=== PATIENT | male | born 1970 | race Caucasian/White ===

== ENCOUNTER 2019-04-11 11:21 | Outpatient (RCR) | payer BC, SELFPAY | END 2019-04-24 00:01 | LOC: WOUND 11:21 | PROVIDERS: Family Provider Internal Medicine; Visit Provider Nurse Practitioner Family | DX: E11.621 Type 2 diabetes mellitus with foot ulcer (principal); L97.512 Non-pressure chronic ulcer of other part of right foot with fat layer exposed; I96 Gangrene, not elsewhere classified | CPT/HCPCS: 99212; G0277 ×9; G0463 ×2 ==

== ENCOUNTER → 2019-04-27 08:03 | Outpatient (BNVA) | payer BC, SELFPAY | PROVIDERS: Family Provider Internal Medicine; PCP Family Medicine; Visit Provider Family Medicine | DX: E11.621 Type 2 diabetes mellitus with foot ulcer (principal); L97.509 Non-pressure chronic ulcer of other part of unspecified foot with unspecified severity; F17.229 Nicotine dependence, chewing tobacco, with unspecified nicotine-induced disorders | CPT/HCPCS: 36415; 80053; 80061; 83036; 85025 ==

== ENCOUNTER → 2019-09-25 09:08 | Outpatient (BNVA) | payer BC, SELFPAY | PROVIDERS: Family Provider Internal Medicine; PCP Family Medicine; Visit Provider Family Medicine | DX: E11.65 Type 2 diabetes mellitus with hyperglycemia (principal); E11.621 Type 2 diabetes mellitus with foot ulcer; L97.509 Non-pressure chronic ulcer of other part of unspecified foot with unspecified severity | CPT/HCPCS: 36416; 82962; 84450; 87070; 87186 ==

== ENCOUNTER 2019-10-01 13:08 | Outpatient (CLI) | payer BC, SELFPAY | END 2019-10-01 13:09 | disposition home or self-care (01) | LOC: WOUND 13:09 | PROVIDERS: Family Provider Internal Medicine; PCP Family Medicine; Visit Provider Nurse Practitioner Family | DX: E11.621 Type 2 diabetes mellitus with foot ulcer (principal); L97.512 Non-pressure chronic ulcer of other part of right foot with fat layer exposed; L97.529 Non-pressure chronic ulcer of other part of left foot with unspecified severity | CPT/HCPCS: 11042; G0463; L3260 ==

== ENCOUNTER 2019-10-08 11:01 | Outpatient (CLI) | payer BC, SELFPAY | END 2019-10-08 11:02 | disposition home or self-care (01) | LOC: WOUND 11:02 | PROVIDERS: Family Provider Internal Medicine; PCP Family Medicine; Visit Provider Nurse Practitioner Family | DX: E11.621 Type 2 diabetes mellitus with foot ulcer (principal); L97.512 Non-pressure chronic ulcer of other part of right foot with fat layer exposed | CPT/HCPCS: 11042 ==

== ENCOUNTER 2019-10-15 11:05 | Outpatient (CLI) | payer BC, SELFPAY | END 2019-10-15 11:06 | disposition home or self-care (01) | LOC: WOUND 11:06 | PROVIDERS: Family Provider Internal Medicine; PCP Family Medicine; Visit Provider Nurse Practitioner Family | DX: E11.621 Type 2 diabetes mellitus with foot ulcer (principal); L97.512 Non-pressure chronic ulcer of other part of right foot with fat layer exposed | CPT/HCPCS: 11042; L3260 ==

== ENCOUNTER 2019-10-22 15:16 | Outpatient (CLI) | payer BC, SELFPAY | END 2019-10-22 15:17 | disposition home or self-care (01) | LOC: WOUND 15:16 | PROVIDERS: Family Provider Internal Medicine; PCP Family Medicine; Visit Provider Nurse Practitioner Family | DX: E11.621 Type 2 diabetes mellitus with foot ulcer (principal); L97.512 Non-pressure chronic ulcer of other part of right foot with fat layer exposed | CPT/HCPCS: 11042 ==

== ENCOUNTER 2019-10-29 08:04 | Outpatient (CLI) | payer BC, SELFPAY | END 2019-10-29 08:05 | disposition home or self-care (01) | PROVIDERS: Family Provider Internal Medicine; PCP Family Medicine; Visit Provider Surgery | DX: Z51.89 Encounter for other specified aftercare (principal) | CPT/HCPCS: G0463 ==

== ENCOUNTER 2019-11-12 15:09 | Outpatient (CLI) | payer BC, SELFPAY | END 2019-11-12 15:10 | disposition home or self-care (01) | LOC: WOUND 15:10 | PROVIDERS: Family Provider Internal Medicine; PCP Family Medicine; Visit Provider Emergency Medicine | DX: E11.621 Type 2 diabetes mellitus with foot ulcer (principal); L97.512 Non-pressure chronic ulcer of other part of right foot with fat layer exposed | CPT/HCPCS: 11042 ==

== ENCOUNTER 2019-11-12 16:07 | Outpatient (CLI) | payer BC, SELFPAY ==
--- NOTE | 2019-11-12 16:24 | XRR_ITS ---
PROCEDURE INFORMATION: Exam: XR Right Foot Complete Exam date and time: 11/12/2019 4:24 PM Age: 49 years old Clinical indication: Right; Patient HX: C/O pain , redness, non healing ulcer ball of foot x 6/8 months; Additional info: Pain, redness, non healing ulcer TECHNIQUE: Imaging protocol: XR Right foot. Views: 3 or more views. COMPARISON: CR Foot 3 views, RIGHT* [id number] 01/30/2019 1:01 PM FINDINGS: Bones/joints: The exam is negative for acute fracture. There chronic deformity of the the great toe which was not present on prior examination. Soft tissues: Soft tissue edema great toe XR/XR foot RT min 3V* [id number] IMPRESSION: 1. Chronic deformity great toe 2. Negative for acute bony abnormality 3. Soft tissue edema great toe
== END 2019-11-12 16:08 | disposition home or self-care (01) ==
LOC: RADWPI 16:11
PROVIDERS: Family Provider Internal Medicine; PCP Family Medicine; Visit Provider Emergency Medicine
DX: M79.671 Pain in right foot (principal); L97.519 Non-pressure chronic ulcer of other part of right foot with unspecified severity; M20.61 Acquired deformities of toe(s), unspecified, right foot; R60.9 Edema, unspecified
CPT/HCPCS: 73630

== ENCOUNTER 2019-11-19 14:47 | Outpatient (CLI) | payer BC, SELFPAY | END 2019-11-19 14:48 | disposition home or self-care (01) | LOC: WOUND 14:48 | PROVIDERS: Family Provider Internal Medicine; PCP Family Medicine; Visit Provider Emergency Medicine | DX: E11.621 Type 2 diabetes mellitus with foot ulcer (principal); L97.512 Non-pressure chronic ulcer of other part of right foot with fat layer exposed | CPT/HCPCS: 11042; L3260 ==

== ENCOUNTER 2019-11-26 15:07 | Outpatient (CLI) | payer BC, SELFPAY | END 2019-11-26 15:08 | disposition home or self-care (01) | LOC: WOUND 15:08 | PROVIDERS: PCP Family Medicine; Visit Provider Nurse Practitioner Family | DX: E11.621 Type 2 diabetes mellitus with foot ulcer (principal); L97.512 Non-pressure chronic ulcer of other part of right foot with fat layer exposed | CPT/HCPCS: 11042 ==

== ENCOUNTER 2019-11-30 12:40 | Outpatient (CLI) | payer BC, SELFPAY ==
--- NOTE | 2019-11-30 12:49 | USCV_ITS ---
Eleuterio Trannedaelvis Age: 49 Gender: M : 1970 Exam Date: 11/30/2019 13:02 Ordering Phys: Yuliana Santos DO Technologist: Lyly Tate Exam Location: [facility] [place] Indication: HISTORY: Patient has ulcers. PROCEDURES: Bilateral duplex Venous Insufficiency study of the Deep and Superficial systems was carried out according to normal protocol with the patient in supine positon for deep system and dependent position for the superficial system. FINDINGS: There is no evidence of bilateral deep vein thrombosis. No evidence of superficial thrombosis in the bilateral saphenous system. Reflux is demonstrated in the deep venous system at the level of the LEFT CFV Venous reflux is demonstrated in the RIGHT greater saphenous vein with a spectral Doppler display of greater than 500 milliseconds at the mid and dist levels. Venous reflux was demonstrated in the LEFT SFJ with a spectral display of greater than 500 milliseconds. Venous reflux is demonstrated in the LEFT greater saphenous vein with a spectral Doppler display of greater than 500 milliseconds at the prox to below the knee levels. No venous reflux noted in the RIGHT small saphenous vein. Venous reflux is demonstrated in the LEFT small saphenous vein with a spectral Doppler display of greater than 500 mlsec at the level of the proximal calf. CONCLUSIONS 1. No evidence of DVT in the above-mentioned identifiable veins. 2. Significant venous reflux of greater than 500 ms were noted at the mid and distal greater saphenous vein segments on the right side. The venous dimension at the segments were 0.49 and 0.54 respectively. The distal greater saphenous vein segment was less than 1 cm deep from the surface. The mid greater saphenous vein segment was greater than 1 cm deep. 3. Significant venous reflux of greater than 500( 2380- 4230 msecs) ms were noted, throughout the greater saphenous vein segments on the left side except in the segment just distal to the saphenofemoral junction. The venous segments where 0.45 to 0.66 cm in diameter. 4. The proximal segment of the small saphenous vein on the left side also was found to have significant venous reflux of greater than 500 ms. 5. All the venous segments with significant reflex on the left side were found to be greater than 1 cm deep from the surface except the greater saphenous vein segment below the knee and the proximal small saphenous vein segments. 6. Significant venous reflux of greater than 1000 ms was noted in the left common femoral vein. No significant reflux were noted in the deep veins on the right side 6. The reflux times, venous dimensions and depth from the surface are as mentioned above. Dr Carmen Lopez MD [facility] (Electronically Signed) Final Date: 30 November 2019 17:36 S
== END 2019-11-30 12:41 | disposition home or self-care (01) ==
LOC: RAD 12:43
PROVIDERS: Family Provider Internal Medicine; PCP Family Medicine; Visit Provider Emergency Medicine
DX: M79.604 Pain in right leg (principal); M79.605 Pain in left leg; L53.9 Erythematous condition, unspecified; L97.929 Non-pressure chronic ulcer of unspecified part of left lower leg with unspecified severity; L97.919 Non-pressure chronic ulcer of unspecified part of right lower leg with unspecified severity
CPT/HCPCS: 93970

== ENCOUNTER 2019-12-03 12:45 | Outpatient (CLI) | payer BC, SELFPAY ==
--- NOTE | 2019-12-03 12:53 | USCV_ITS ---
Willard Tran Age: 49 Gender: M : 1970 Exam Date: 12/03/2019 13:03 Ordering Phys: Yuliana Santos DO Technologist: Zoë Foster Exam Location: [facility] – [place] Indication: NON HEALING ULCER RIGHT LEFT Brachial 111.00 mmHg Brachial 112.00 mmHg Pressure (mmHg) Waveform Pressure (mmHg) Waveform 75.00 Pre-Exercise Toe Pressure 72.00 0.67 Pre-Exercise Toe/Brachial Index 0.64 FINDINGS BILATERAL ANKLE PRESSURES >220 Noncompressible vessels at the ankle bilaterally Slightly diminished resting TBI bilaterally PVR waveforms showing loss of dicrotic notch bilaterally CONCLUSIONS Features of mild peripheral arterial disease bilaterally Dr Carmen Lopez MD [facility] (Electronically Signed) Final Date: 03 December 2019 20:14 S
== END 2019-12-03 12:46 | disposition home or self-care (01) ==
LOC: US 12:46
PROVIDERS: Family Provider Internal Medicine; PCP Family Medicine; Visit Provider Emergency Medicine
DX: M79.604 Pain in right leg (principal); M79.605 Pain in left leg; L53.9 Erythematous condition, unspecified; L97.929 Non-pressure chronic ulcer of unspecified part of left lower leg with unspecified severity; L97.919 Non-pressure chronic ulcer of unspecified part of right lower leg with unspecified severity
CPT/HCPCS: 93923

== ENCOUNTER 2019-12-05 14:16 | Outpatient (CLI) | payer BC, SELFPAY | END 2019-12-05 14:17 | disposition home or self-care (01) | LOC: WOUND 14:17 | PROVIDERS: Family Provider Internal Medicine; PCP Family Medicine; Visit Provider Thoracic Surgery (Cardiothoracic Vascular Surgery) | DX: E11.621 Type 2 diabetes mellitus with foot ulcer (principal); L97.512 Non-pressure chronic ulcer of other part of right foot with fat layer exposed | CPT/HCPCS: 11042; L4387 ==

== ENCOUNTER 2019-12-12 10:47 | Outpatient (CLI) | payer BC, SELFPAY | END 2019-12-12 10:48 | disposition home or self-care (01) | LOC: WOUND 10:48 | PROVIDERS: Family Provider Internal Medicine; PCP Family Medicine; Visit Provider Nurse Practitioner Family | DX: E11.621 Type 2 diabetes mellitus with foot ulcer (principal); L97.512 Non-pressure chronic ulcer of other part of right foot with fat layer exposed | CPT/HCPCS: 11042 ==

== ENCOUNTER 2019-12-19 13:51 | Outpatient (CLI) | payer BC, SELFPAY | END 2019-12-19 13:52 | disposition home or self-care (01) | LOC: WOUND 13:51 | PROVIDERS: Family Provider Internal Medicine; PCP Family Medicine; Visit Provider Emergency Medicine | DX: E11.621 Type 2 diabetes mellitus with foot ulcer (principal); L97.512 Non-pressure chronic ulcer of other part of right foot with fat layer exposed | CPT/HCPCS: 11042; L3260 ==

== ENCOUNTER 2019-12-26 13:49 | Outpatient (CLI) | payer BC, SELFPAY | END 2019-12-26 13:50 | disposition home or self-care (01) | LOC: WOUND 13:50 | PROVIDERS: Family Provider Internal Medicine; Visit Provider Emergency Medicine | DX: E11.621 Type 2 diabetes mellitus with foot ulcer (principal); L97.512 Non-pressure chronic ulcer of other part of right foot with fat layer exposed | CPT/HCPCS: 11042; 29445; L3260 ==

== ENCOUNTER 2020-01-03 15:21 | Outpatient (CLI) | payer BC, SELFPAY | END 2020-01-03 15:22 | disposition home or self-care (01) | LOC: WOUND 15:22 | PROVIDERS: Family Provider Internal Medicine; Visit Provider Emergency Medicine | DX: E11.621 Type 2 diabetes mellitus with foot ulcer (principal); L97.512 Non-pressure chronic ulcer of other part of right foot with fat layer exposed | CPT/HCPCS: 11042 ==

== ENCOUNTER → 2020-01-17 16:44 | Outpatient (BNVA) | payer BC, SELFPAY | PROVIDERS: Family Provider Internal Medicine; Visit Provider Nurse Practitioner | DX: Z20.828 Contact with and (suspected) exposure to other viral communicable diseases (principal) | CPT/HCPCS: 87635 ==

== ENCOUNTER 2020-01-23 14:14 | Outpatient (CLI) | payer BC, SELFPAY | END 2020-01-23 14:15 | disposition home or self-care (01) | LOC: WOUND 14:15 | PROVIDERS: Family Provider Internal Medicine; Visit Provider Nurse Practitioner Family | DX: E11.621 Type 2 diabetes mellitus with foot ulcer (principal); L97.512 Non-pressure chronic ulcer of other part of right foot with fat layer exposed | CPT/HCPCS: 11042 ==

== ENCOUNTER 2020-01-30 14:30 | Outpatient (CLI) | payer BC, SELFPAY | END 2020-01-30 14:31 | disposition home or self-care (01) | LOC: WOUND 14:30 | PROVIDERS: Family Provider Internal Medicine; Visit Provider Thoracic Surgery (Cardiothoracic Vascular Surgery) | DX: E11.621 Type 2 diabetes mellitus with foot ulcer (principal); L97.512 Non-pressure chronic ulcer of other part of right foot with fat layer exposed | CPT/HCPCS: 11042 ==

== ENCOUNTER 2020-02-06 14:16 | Outpatient (CLI) | payer BC, SELFPAY | END 2020-02-06 14:17 | disposition home or self-care (01) | LOC: WOUND 14:16 | PROVIDERS: Family Provider Internal Medicine; Visit Provider Nurse Practitioner Family | DX: E11.621 Type 2 diabetes mellitus with foot ulcer (principal); L97.512 Non-pressure chronic ulcer of other part of right foot with fat layer exposed | CPT/HCPCS: 11042 ==

== ENCOUNTER 2020-02-13 14:41 | Outpatient (CLI) | payer BC, SELFPAY | END 2020-02-13 14:42 | disposition home or self-care (01) | LOC: WOUND 14:42 | PROVIDERS: Family Provider Internal Medicine; Visit Provider Thoracic Surgery (Cardiothoracic Vascular Surgery) | DX: E11.621 Type 2 diabetes mellitus with foot ulcer (principal); L97.512 Non-pressure chronic ulcer of other part of right foot with fat layer exposed | CPT/HCPCS: 11042 ==

== ENCOUNTER 2020-02-20 15:03 | Outpatient (CLI) | payer BC, SELFPAY | END 2020-02-20 15:04 | disposition home or self-care (01) | LOC: WOUND 15:04 | PROVIDERS: Family Provider Internal Medicine; Visit Provider Thoracic Surgery (Cardiothoracic Vascular Surgery) | DX: E11.621 Type 2 diabetes mellitus with foot ulcer (principal); L97.512 Non-pressure chronic ulcer of other part of right foot with fat layer exposed | CPT/HCPCS: 11042 ==

== ENCOUNTER 2020-02-27 15:04 | Outpatient (CLI) | payer BC, SELFPAY | END 2020-02-27 15:05 | disposition home or self-care (01) | LOC: WOUND 15:04 | PROVIDERS: Family Provider Internal Medicine; Visit Provider Thoracic Surgery (Cardiothoracic Vascular Surgery) | DX: E11.621 Type 2 diabetes mellitus with foot ulcer (principal); L97.512 Non-pressure chronic ulcer of other part of right foot with fat layer exposed | CPT/HCPCS: 11042 ==

== ENCOUNTER 2020-03-05 14:38 | Outpatient (CLI) | payer BC, SELFPAY | END 2020-03-05 14:39 | disposition home or self-care (01) | LOC: WOUND 14:38 | PROVIDERS: Family Provider Internal Medicine; Visit Provider Thoracic Surgery (Cardiothoracic Vascular Surgery) | DX: E11.621 Type 2 diabetes mellitus with foot ulcer (principal); L97.512 Non-pressure chronic ulcer of other part of right foot with fat layer exposed | CPT/HCPCS: 97597; G0463 ==

== ENCOUNTER 2020-04-11 14:22 | Outpatient (CLI) | payer BC, SELFPAY | END 2020-04-11 14:23 | disposition home or self-care (01) | LOC: WOUND 14:22 | PROVIDERS: Family Provider Internal Medicine; Visit Provider Surgery | DX: E11.621 Type 2 diabetes mellitus with foot ulcer (principal); L97.512 Non-pressure chronic ulcer of other part of right foot with fat layer exposed | CPT/HCPCS: 10060; 11043; 87070; 87077; 87186; G0463 ==

== ENCOUNTER 2020-04-15 15:01 | Outpatient (CLI) | payer BC, SELFPAY | END 2020-04-15 15:02 | disposition home or self-care (01) | LOC: WOUND 15:01 | PROVIDERS: Family Provider Internal Medicine; Visit Provider Nurse Practitioner Family | DX: E11.621 Type 2 diabetes mellitus with foot ulcer (principal); L97.512 Non-pressure chronic ulcer of other part of right foot with fat layer exposed | CPT/HCPCS: 11042 ==

== ENCOUNTER 2020-04-16 12:47 | Outpatient (CLI) | payer BC, SELFPAY ==
--- NOTE | 2020-04-16 12:56 | XR_ITS ---
WS: [id number] FOOT RIGHT TECHNIQUE: 3 views of the right foot CLINICAL INFORMATION: DIABETIC FOOT ULCER, RIGHT FOOT PAIN, R/O OSTEOMYELITIS COMPARISON: November 12, 2019 FINDINGS: Chronic appearing erosive changes involving the first DIP unchanged in appearance since November 12, 2019 . Findings likely due to chronic osteomyelitis or periarthritis. No new erosive changes. Hammertoe de formities. Vascular calcification. Tiny plantar calcaneal and Achilles insertion spurring. XR/XR foot RT min 3V* [id number] IMPRESSION: 1. Again seen are chronic erosive changes involving the first DIP unchanged in appearance since November 12, 2019. Findings presumed be due to chronic osteomyeli tis. No significant interval changes. 2. Mild soft tissue edema.
== END 2020-04-16 12:48 | disposition home or self-care (01) ==
LOC: RADWPI 12:54
PROVIDERS: PCP Family Medicine; Visit Provider Surgery
DX: M79.671 Pain in right foot (principal); E11.621 Type 2 diabetes mellitus with foot ulcer; L97.512 Non-pressure chronic ulcer of other part of right foot with fat layer exposed; R60.0 Localized edema
CPT/HCPCS: 73630

== ENCOUNTER 2020-04-29 14:45 | Outpatient (CLI) | payer BC, SELFPAY | END 2020-04-29 14:46 | disposition home or self-care (01) | LOC: WOUND 14:45 | PROVIDERS: PCP Family Medicine; Visit Provider Thoracic Surgery (Cardiothoracic Vascular Surgery) | DX: E11.621 Type 2 diabetes mellitus with foot ulcer (principal); L97.412 Non-pressure chronic ulcer of right heel and midfoot with fat layer exposed | CPT/HCPCS: 11042 ==

== ENCOUNTER 2020-05-02 14:55 | Outpatient (CLI) | payer BC, SELFPAY ==
[2020-05-02 15:31] LABS: Basophils # 0.1 10^3/uL (0.0-0.1); Eosinophils # 0.1 10^3/uL (0.0-0.8); Eosinophils % 2.1 %; Hematocrit 45.6 % (42.0-52.0); Hemoglobin 15.6 g/dL (11.7-16.6); Lymphocytes # 1.7 10^3/uL (0.8-4.8); Lymphocytes % 24.3 %; Mean Corpuscular HGB Conc 34.2 g/dL (30.0-36.0); Mean Corpuscular Volume 90.5 fL (80-94); Mean Platelet Volume 10.8 fL (7.4-10.4); Monocytes # 0.5 10^3/uL (0.2-0.9); Neutrophils # 4.35 10^3/uL (1.8-7.7); Neutrophils % 64.2 %; Nucleated Red Blood Cells % 0 %; Platelet Count 171 10^3/cmm (130-400); Red Blood Count 5.04 10^6/uL (4.1-5.3); Red Cell Distribution Width 12.2 % (12.1-15.1); White Blood Count 6.8 10^3/uL (4.0-10.0)
[2020-05-02 15:47] LABS: Alanine Aminotransferase 30 U/L (0-41); Albumin Level 4.5 g/dL (3.5-5.2); Alkaline Phosphatase 111 IU/L (40-130); Blood Urea Nitrogen 11 mg/dL (6-20); Calcium 9.2 mg/dL (8.5-10.5); Carbon Dioxide 30 mmol/L (22-29); Chloride 98 mmol/L (98-107); Globulin 3.2 g/dL (1.3-4.6); Glomerular Filtration Rate 119.9 mL/min (90-130); Glucose 229 mg/dL (65-115); Osmolality Calculated 291 mOsm/kg (285-295); Sodium 137 mmol/L (136-145); Total Bilirubin 0.6 mg/dL (0.15-1.2); Total Protein 7.7 g/dL (6.6-8.7)
[2020-05-02 15:58] LABS: Anion Gap 13.2 (5-19); Aspartate Amino Transferase 26 U/L (0-40); Potassium 4.2 mmol/L (3.5-5.1)
== END 2020-05-02 14:56 | disposition home or self-care (01) ==
PROVIDERS: PCP Family Medicine; Visit Provider Thoracic Surgery (Cardiothoracic Vascular Surgery)
DX: M86.9 Osteomyelitis, unspecified (principal)
CPT/HCPCS: 36415; 80053; 85025

== ENCOUNTER 2020-05-07 14:22 | Outpatient (CLI) | payer BC, SELFPAY | END 2020-05-07 14:23 | disposition home or self-care (01) | LOC: WOUND 14:23 | PROVIDERS: PCP Family Medicine; Visit Provider Thoracic Surgery (Cardiothoracic Vascular Surgery) | DX: Z09 Encounter for follow-up examination after completed treatment for conditions other than malignant neoplasm (principal) | CPT/HCPCS: G0463 ==

== ENCOUNTER 2020-05-21 14:12 | Outpatient (CLI) | payer BC, SELFPAY | END 2020-05-21 14:13 | disposition home or self-care (01) | LOC: WOUND 14:13 | PROVIDERS: PCP Family Medicine; Visit Provider Thoracic Surgery (Cardiothoracic Vascular Surgery) | DX: E11.621 Type 2 diabetes mellitus with foot ulcer (principal); L97.412 Non-pressure chronic ulcer of right heel and midfoot with fat layer exposed | CPT/HCPCS: 99212 ==

== ENCOUNTER 2020-12-10 10:19 | Emergency (ER) | payer BC, SELFPAY ==
[2020-12-10 10:38] VITALS: BP 155/84; PULSE 83; RESP 18; TEMP 36.9; O2SAT 93
[2020-12-10 10:43] VITALS: O2SAT 92
--- NOTE | 2020-12-10 10:53 | XR_ITS ---
WS: [id number] PORTABLE CHEST HISTORY: dyspnea/cough COMPARISON: 02/14/2019 Bilateral multi lobar opacifications. Most significant consolidation in the RIGHT lower lobe and post erior to the LEFT heart. Additional scattered opacifications throughout the remaining lungs. No pleur al effusion or pneumothorax. Cardiac size: Normal. Mediastinum/Aorta: Normal mediastinum. No osseous abnormality seen. XR/XR chest 1V portable [id number] IMPRESSION: Multi lobar opacifications consistent with pneumonia. Consider Covid 19 as a po ssible etiology.
--- NOTE | 2020-12-10 10:54 | W.ED.COVID ---
HPI - COVID General: Chief Complaint: COVID symptoms Stated Complaint: chest tightness, productive cough post covid Time Seen by Provider: 12/10/20 10:24 Triage information: Has fever, cough or shortness of breath. No known COVID + exposure last 14 days History of Present Illness: HPI Narrative: 50 yo male tested positive for Covid on December 05. He was going to try to go back to work today. His symptoms had begun on November 30. He still is symptomatic however he is somewhat short of breath. He is still coughing as well as not had a fever. Diarrhea and muscle aches have diminished. MD complaint: known COVID positive Prior testing date: 12/05/20 COVID 19 common symptoms: positive fever(s), chills, cough, non-productive cough, dyspnea, fatigue, body aches, loss of sense of smell and/or taste, nasal congestion and nausea COVID 19 other sytmptoms: negative chest pain or requiring oxygen Onset (ago): day(s) (10) Severity: mild Pertinent comorbid conditions: obesity Treatment prior to arrival: none COVID Results: SARS-CoV-2 RNA (RT-PCR) Not detected (NOT DETECTED) 01/17/20 16:44 01/17/20 Review of Systems Const: Reports: fever(s), chills, body aches and fatigue ENMT: Reports: nasal congestion Card: Denies: chest pain, edema, dyspnea on exertion or orthopnea Resp: Reports: dyspnea and non-productive cough GI: Reports: nausea : Denies: flank pain, dysuria, urinary frequency or urinary urgency Skin/Breast: Denies: rash or pruritus PFSH ED PFSH: Medical History Diabetic foot ulcer Dyslipidemia PAD (peripheral artery disease) Splenomegaly Type 2 diabetes mellitus, without long-term current use of insulin Surgical History S/P hernia repair Family History Other Cancer Diabetes Hypertension Social History Smoking and tobacco status: current every day smoker smokeless tobacco Alcohol intake: never Physical Exam Const: COMMON NORMALS: no acute distress GENERAL APPEARANCE: cooperative and comfortable ORIENTATION/CONSCIOUSNESS: Yes awake, Yes oriented to person, Yes oriented to place and Yes oriented to time HENMT: COMMON NORMALS: normocephalic, atraumatic and hearing grossly normal bilaterally HEAD & SCALP: normocephalic and atraumatic Eye: COMMON NORMALS: Equal, round and reactive pupils present, EOMs intact bilaterally, conjunctivae normal and no scleral icterus CONJUNCTIVA: Yes conjunctivae normal PUPIL: Yes Equal, round and reactive pupils present Neck/C-Spine: COMMON NORMALS: full ROM, no lymphadenopathy, supple and no JVD Lymph: LYMPHATIC: no lymphadenopathy noted and no lymphedema noted Resp: COMMON NORMALS: normal respiratory effort, No retractions, No use of accessory muscles and clear to auscultation bilaterally AUSCULTATION: clear to auscultation bilaterally Cardio: COMMON NORMALS: no JVD, regular rate, regular rhythm and No murmurs present (Cardio) RATE: regular rate RHYTHM: regular rhythm GI: COMMON NORMALS: Soft to palpation and No hepatosplenomegaly present AUSCULTATION: Yes normoactive bowel sounds PALPATION: Yes Soft to palpation, No Tenderness to palpation present (GI), No Guarding due to palpation present (GI) and Yes No hepatosplenomegaly present Extremity: COMMON NORMALS: normal to inspection, capillary refill normal, no clubbing, cyanosis or edema, no calf tenderness and no pedal edema Neuro: SENSORIUM/ORIENTATION: Yes oriented to person, Yes oriented to place and Yes oriented to time Skin: COMMON NORMALS: no rashes or lesions noted GENERAL SKIN EXAM: no rashes or lesions noted Course Vital Signs: Vital signs: Vital Signs Temperature 98.4 F 12/10/20 10:38 Pulse Rate 67 12/10/20 11:36 Respiratory Rate 14 12/10/20 11:36 Blood Pressure 114/80 12/10/20 11:36 Pulse Oximetry 92 12/10/20 11:36 MDM - COVID MDM Narrative: Medical decision making narrative: Typical Covid pneumonitis on the chest x-ray consistent with his symptoms and known positive status. Discussed with the patient that the quarantine. Does not mean that he is free of Covid at the end of that time it is just time. In which we watch for the onset of symptoms if he has onset of symptoms during that time he is thought to be positive and needs to wait until his symptoms are resolved first at least 72 hours. At this point he does have active Covid and has pneumonitis from. Recommend that he maintain self-isolation we will start him on prednisone and albuterol clear liquid diet advance as tolerated worsening symptoms return COVID Results: SARS-CoV-2 RNA (RT-PCR) Not detected (NOT DETECTED) 01/17/20 16:44 01/17/20 Discharge Plan Discharge Patient Disposition: Home Clinical Impression: COVID-19 Condition: Stable Prescriptions: New dexamethasone 6 mg tablet 6 mg PO DAILY Qty: 7 RF: 0 albuterol sulfate 90 mcg/actuation HFA aerosol inhaler 2 inh INHALATION Q4H PRN (Reason: shortness of breath or wheezing) Qty: 18 RF: 0 No Action mupirocin calcium 2 % cream 1 applic topical BID 28 Days Qty: 30 RF: 0 (DME) Diabetic shoes with molded inserts See Rx Instructions .Route .MEDSUPPLY Qty: 1 RF: 0 (DME) FreeStyle Lite Strips Strip See Rx Instructions .ROUTE .MEDSUPPLY Qty: 100 RF: 2 atorvastatin 10 mg tablet 10 mg PO .qhs Qty: 30 RF: 0 lisinopril 5 mg tablet 5 mg PO ONCE Qty: 30 RF: 0 metformin 500 mg tablet extended release 24 hr 500 mg PO BID Qty: 60 RF: 0 Januvia 100 mg tablet 100 mg PO DAILY Qty: 30 RF: 0 Discharge Orders: Discharge ED (Routine); Ordered 12/10/20 Ordered By: Nicolas Ng Referrals: Dolores Alejo DO [Primary Care Provider] - Discharge Diet: Usual diet Discharge Activity: Increase activity as tolerated Patient Instructions: Opioid Safety Coding Level of Care Code ED Status Controller for Markg Fwd Exam Comprehensive
[2020-12-10 11:36] VITALS: BP 114/80; PULSE 67; RESP 14; O2SAT 92
== END 2020-12-10 11:37 | disposition home or self-care (01) ==
PROVIDERS: Emergency Provider Family Medicine; PCP Family Medicine
DX: U07.1 COVID-19 (principal); Z79.84 Long term (current) use of oral hypoglycemic drugs; E78.5 Hyperlipidemia, unspecified; E11.9 Type 2 diabetes mellitus without complications; F17.210 Nicotine dependence, cigarettes, uncomplicated
CPT/HCPCS: 71045; 99282

== ENCOUNTER 2021-09-01 12:56 | Outpatient (CLI) | payer BC, SELFPAY ==
--- NOTE | 2021-09-01 12:45 | USCV_ITS ---
Willard Tran Age: 51 Gender: M : 1970 Exam Date: 09/01/2021 13:06 Ordering Phys: Chacorta Tripathi MD (Andy) ([email or web address]) Technologist: SARA Exam Location: [facility] – [place] Indication: Other specified soft tissue disorders HISTORY: Lower extremity pain. Patient has history of Left GSV BK dvt. PROCEDURES: Venous duplex imaging was performed in only the left lower extremity. The following venous structures were evaluated: common femoral vein, profunda vein, proximal portion of the greater saphenous vein, superficial femoral vein, and the popliteal vein. In addition, the posterior tibial and peroneal trunk were evaluated. FINDINGS: Acute thrombus in the Left GSV from the ankle extending to below the knee. All other veins appear patent and compressible at this time. No DVT. CONCLUSIONS Acute left lower extremity superficial vein thrombosis, GSV from ankle to knee. New since 11/30/19. No DVT. Dr. Cata Pearson DO (Electronically Signed) Final Date: 01 Sep 2021 14:52 S
--- NOTE | 2021-09-01 13:09 | XR_ITS ---
WS: [id number] XR foot LT min 3V* [id number] REASON FOR EXAM: E11.621 - Type 2 diabetes mellitus with foot ulcer FINDINGS: Small arterial vascular calcifications indicative of diabetes. No fracture or focal bone lesion. No bony erosion or periosteal reaction. Moderate narrowing of the joint space with subchondral sclerosis in the DIP and PIP joints of the toe s. Similar arthropathy in the metatarsal phalangeal joint of the great toe with significant valgus defor mity. There is deformity of the distal first metatarsal head suggesting previous osteotomy. Joint spaces in the midfoot and hindfoot are intact and relatively well-preserved. Small anterior plantar enthesophyte of the calcaneus. Small enthesophyte at the Achilles attachment t o the calcaneus. Calcaneus otherwise unremarkable. Soft tissue swelling and mottled density in the soft tissues adjacent to the calcaneus. Presumed site of ulcer. 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 No findings of osteomyelitis.
--- NOTE | 2021-09-01 13:09 | XR_ITS ---
WS: [id number] RIGHT FOOT: 3 VIEW(S) TECHNIQUE: AP, oblique and lateral. HISTORY: Z86.31 - Personal history of diabetic foot ulcer COMPARISON: 04/16/2020 Narrowing of the first IP joint with erosions. No progression since the prior study. There is mild so ft tissue edema surrounding the first and fifth toes. There is a focal ulceration along the posterior aspect of the calcaneus measuring 2.0 cm. No underlying osteomyelitis. Normal tarsal/metatarsal alignment. Vascular calcifications. XR/XR foot RT min 3V* [id number] IMPRESSION: 1. No osteomyelitis identified radiographically. 2. Soft tissue ulceration measuring 2.0 cm along the posterior calcaneus. 3. Vascular calcifications. 4. Stable erosions at the first IP joint.
== END 2021-09-01 12:57 | disposition home or self-care (01) ==
LOC: RAD 13:00
PROVIDERS: PCP Internal Medicine; Visit Provider Thoracic Surgery (Cardiothoracic Vascular Surgery)
DX: E11.621 Type 2 diabetes mellitus with foot ulcer (principal); M19.072 Primary osteoarthritis, left ankle and foot; L97.529 Non-pressure chronic ulcer of other part of left foot with unspecified severity; L97.512 Non-pressure chronic ulcer of other part of right foot with fat layer exposed; I82.812 Embolism and thrombosis of superficial veins of left lower extremity
CPT/HCPCS: 73630; 93971

== ENCOUNTER 2022-02-02 16:10 | Outpatient (CLI) | payer BC, SELFPAY ==
--- NOTE | 2022-02-02 15:00 | USR_ITS ---
PROCEDURE INFORMATION: Exam: US Duplex Left Lower Extremity Veins, Limited Exam date and time: 02/02/2022 4:42 PM Age: 51 years old Clinical indication: Pain; Leg, lower; Left; Additional info: Rule out dvt TECHNIQUE: Imaging protocol: Real-time Duplex ultrasound of the Left Lower Extremity with 2-D vora scale, color Doppler flow and spectral waveform analysis with image documentation. Limited exam focused on the left lower extremity veins. COMPARISON: US ROR venous duplex 01/05/2021 3:33 PM FINDINGS: Left deep veins: Unremarkable. The common femoral, femoral, proximal profunda femoral and popliteal veins are patent without thrombus. Normal Doppler waveforms. Normal compressibility and/or augmentation response. Left superficial veins: Greater saphenous is noncompressible distal to the knee. This may reflect some superficial thrombophlebitis Soft tissues: Unremarkable. Other findings: Otherwise. Saphenofemoral junction is patent without thrombus. US/CV venous duplex [id number] IMPRESSION: 1. No evidence of deep vein thrombosis. 2. Possible superficial thrombophlebitis left distal greater saphenous
== END 2022-02-02 16:11 | disposition home or self-care (01) ==
LOC: RAD 16:11
PROVIDERS: PCP Internal Medicine; Visit Provider Podiatrist Foot & Ankle Surgery
DX: I82.409 Acute embolism and thrombosis of unspecified deep veins of unspecified lower extremity (principal)
CPT/HCPCS: 93971

== ENCOUNTER 2022-02-07 21:52 | Emergency (ER) | payer BC, SELFPAY ==
[2022-02-07 21:54] VITALS: BP 170/90; PULSE 96; RESP 16; TEMP 36.7; O2SAT 97; BMI 33.3
--- NOTE | 2022-02-07 21:56 | XRR_ITS ---
PROCEDURE INFORMATION: Exam: XR Left Ankle Exam date and time: 02/07/2022 10:28 PM Age: 51 years old Clinical indication: Edema; Yes, it is localized; Patient HX: Redness and swelling left ankle; Additional info: Injury TECHNIQUE: Imaging protocol: Radiologic exam of the Left ankle. Views: 3 or more views. COMPARISON: CR XR foot LT min 3V* [id number] 09/01/2021 1:28 PM FINDINGS: Bones/joints: No fracture. Soft tissues: There is nonfocal subcutaneous edema in the distal calf and ankle greater medially than laterally. Vasculature: atherosclerosis. XR/XR ankle LT min 3V* [id number] IMPRESSION: 1. No acute findings. 2. Subcutaneous edema.
--- NOTE | 2022-02-07 22:25 | W.ED.WOUNDLC ---
HPI - Wound/Laceration General: Chief Complaint: Wound/Laceration Stated Complaint: left ankle pain Time Seen by Provider: 02/07/22 22:22 History of Present Illness: 51-year-old male patient comes in today for redness and tenderness to the left lower leg for 1 week. Patient recently had a evaluation for DVT in the leg due to some lymphadenopathy in the groin. Patient was negative for DVT. Patient noted that he then noticed some increasing redness and swelling to the distal part of his leg after being evaluated. Patient came in tonight for concerns of infection. Patient appears nontoxic. Patient appears in mild to no pain. Review of Systems General: Reports: 10 or more systems reviewed and unremarkable except in HPI and below Skin/Breast: Reports: erythema PFSH ED PFSH: Medical History Diabetic foot ulcer Dyslipidemia PAD (peripheral artery disease) Splenomegaly Type 2 diabetes mellitus, without long-term current use of insulin Surgical History S/P hernia repair Family History Other Cancer Diabetes Hypertension Social History Smoking and tobacco status: current every day smoker smokeless tobacco Alcohol intake: never Physical Exam Const: COMMON NORMALS: alert HENMT: COMMON NORMALS: normocephalic HEAD & SCALP: normocephalic Neck/C-Spine: COMMON NORMALS: full ROM Resp: COMMON NORMALS: normal respiratory effort and clear to auscultation bilaterally AUSCULTATION: clear to auscultation bilaterally Cardio: COMMON NORMALS: regular rate and regular rhythm RATE: regular rate RHYTHM: regular rhythm Extremity: LEFT LOWER EXTREMITY: Yes lower leg (Area of ecchymosis approximately 1 cm with surrounding induration) Left lower leg: Yes inspection, Yes palpation and Yes neurovascular exam Neuro: SENSORIUM/ORIENTATION: Yes alert Skin: NARRATIVE SKIN EXAM: Area of redness and erythema to the left lower leg. Patient has a centralized circular area of ecchymosis with surrounding induration and erythema. Course Vital Signs: Vital signs: Vital Signs Temperature 98.1 F 02/07/22 21:54 Pulse Rate 88 02/07/22 23:43 Respiratory Rate 18 02/07/22 23:43 Blood Pressure 132/78 02/07/22 23:43 Pulse Oximetry 97 02/07/22 22:39 Oxygen Delivery Me thod 02/07/22 22:39 MDM - Wound/Laceration Medical Decision Making 51-year-old male patient comes in for worsening pain and redness to the left lower leg. Patient was evaluated for DVT earlier this week which was negative. Tonight patient has a area of induration and redness with a centralized ecchymotic area suggestive of a blow to the [place]. Patient also has some surrounding tissue swelling with erythema. Patient had reported some lymphadenopathy in the groin. Vital signs were normal. Patient reports no recent antibiotics. Differential diagnosis includes but not limited to lower leg injury, cellulitis, PVD. Review of the record noted that patient had a screening for DVT was negative on the . CBC had a white count 11,000, lactate was 1, CMP was unremarkable except for some elevation of blood glucose of 412. Patient was given a gram of Rocephin and 1 Bactrim tablet. Patient continued on Augmentin and Bactrim at home with recommendations to elevate and rest the leg and follow-up with primary care in 2 to 3 days or return to the ER for worsening symptoms. Patient reported understanding agreed to plan for treatment of cellulitis. Lab Data : 02/07/22 22:30 02/07/22 22:30 Radiology Impressions Ankle X-Ray 02/07/22 21:56 IMPRESSION: 1. No acute findings. 2. Subcutaneous edema. Laboratory Results WBC 11.0 10^3/uL (4.0-10.0) H 02/07/22 22:30 RBC 4.86 10^6/uL (4.1-5.3) 02/07/22 22:30 Hgb 15.5 g/dL (11.7-16.6) 02/07/22 22:30 Hct 44.4 % (42.0-52.0) 02/07/22 22:30 MCV 91.4 fl (80-94) 02/07/22 22:30 MCH 31.9 pg (28.0-34.0) 02/07/22 22:30 MCHC 34.9 g/dL (30.0-36.0) 02/07/22 22:30 RDW 12.2 % (12.1-15.1) 02/07/22: Plt Count 174 10^3/cmm (130-400) 02/07/22:30 MPV 10.7 fL (7.4-10.4) H 02/07/22: Neut % (Auto) 77.2 % 02/07/22: Lymph % (Auto) 13.4 % 02/07/22: Elliott % (Auto) 7.4 % 02/07/22: Eos % (Auto) 0.9 % 02/07/22: Baso % (Auto) 0.6 % 02/07/22: Neut # (Auto) 8.49 10^3/uL (1.8-7.7) H 02/07/22: Lymph # (Auto) 1.5 10^3/uL (0.8-4.8) 02/07/22: Elliott # (Auto) 0.8 10^3/uL (0.2-0.9) 02/07/22: Eos # (Auto) 0.1 10^3/uL (0.0-0.8) 02/07/22: Baso # (Auto) 0.1 10^3/uL (0.0-0.1) 02/07/22: Nucleated RBC % (auto) 0 % 02/07/22: Nucleated RBCs # 0.0 /100WBC 02/07/22:30 Sodium 133 mmol/L (136-145) L 02/07/22: Potassium 4.5 mmol/L (3.5-5.1) 02/07/22: Chloride 94 mmol/L (98-107) L 02/07/22: Carbon Dioxide 27 mmol/L (22-29) 02/07/22: Anion Gap 16.5 (5-19) 02/07/22: BUN 10 mg/dL (6-20) 02/07/22: Creatinine 0.7 mg/dL (0.7-1.2) 02/07/22:30 GFR Calculation 119.4 mL/min (90-130) 02/07/22: Glucose 412 mg/dL (65-115) H 10/16/22 22:30 Calculated Osmolality 292 mOsm/kg (285-295) 02/07/22 22:30 Lactate 1.0 mmol/L (0.5-2.2) 02/07/22 22:30 Calcium 9.3 mg/dL (8.5-10.5) 02/07/22 22:30 Total Bilirubin 0.5 mg/dL (0.15-1.2) 02/07/22 22:30 AST 16 U/L (0-40) 02/07/22 22:30 ALT 21 U/L (0-41) 02/07/22 22:30 Alkaline Phosphatase 109 U/L (40-130) 02/07/22 22:30 Total Protein 7.5 g/dL (6.6-8.7) 02/07/22 22:30 Albumin 4.2 g/dL (3.5-5.2) 02/07/22 22:30 Globulin 3.3 g/dL (1.3-4.6) 02/07/22 22:30 Discharge Plan Discharge Patient Disposition: Home Clinical Impression: Cellulitis of left lower leg Condition: Stable Prescriptions: New Bactrim DS 800-160 mg tablet 1 tab PO DAILY 7 Days Qty: 14 0RF amoxicillin-pot clavulanate 875-125 mg tablet 1 tab PO BID Qty: 14 0RF No Action mupirocin calcium 2 % cream 1 applic topical BID 28 Days Qty: 30 0RF (DME) Diabetic shoes with molded inserts See Rx Instructions .Route .MEDSUPPLY Qty: 1 0RF Rx Instructions: As directed (DME) FreeStyle Lite Strips Strip See Rx Instructions .ROUTE .MEDSUPPLY Qty: 100 2RF Rx Instructions: TWICE DAILY atorvastatin 10 mg tablet 10 mg PO .qhs Qty: 30 0RF lisinopril 5 mg tablet 5 mg PO ONCE Qty: 30 0RF metformin 500 mg tablet extended release 24 hr 500 mg PO BID Qty: 60 0RF Januvia 100 mg tablet 100 mg PO DAILY Qty: 30 0RF sulfamethoxazole-trimethoprim [Bactrim DS] 800-160 mg tablet 1 tab PO BID Qty: 14 0RF dexamethasone 6 mg tablet 6 mg PO DAILY Qty: 7 0RF albuterol sulfate 90 mcg/actuation HFA aerosol inhaler 2 inh INHALATION Q4H PRN (Reason: shortness of breath or wheezing) Qty: 18 0RF Discharge Orders: Discharge ED (Routine); Ordered 02/07/22 Ordered By: Chacorta Saleh Referrals: Pablo Orona DO [Primary Care Provider] - Discharge Diet: Usual diet Discharge Activity: Increase activity as tolerated Patient Instructions: Cellulitis (ED) Activity Restrictions/Additional Instructions: Home and rest. Take antibiotics as directed. Elevate extremity as much as possible for the next 2 to 3 days. Continue with routine medications as directed. Follow-up with primary care in 3 days for recheck. Return to ER earlier if you have increased fever greater than 100.4, inability to hold fluids down, or increasing pain and swelling to the extremity. Stand Alone Forms: Work/School Release Coding Level of Care Code ED Adhesive Bandage Machine Operator for Markg Fwd Exam Detailed
[2022-02-07 22:36] LABS: Basophils # 0.1 10^3/uL (0.0-0.1); Basophils % 0.6 %; Eosinophils # 0.1 10^3/uL (0.0-0.8); Eosinophils % 0.9 %; Hematocrit 44.4 % (42.0-52.0); Hemoglobin 15.5 g/dL (11.7-16.6); Lymphocytes # 1.5 10^3/uL (0.8-4.8); Lymphocytes % 13.4 %; Mean Corpuscular HGB Conc 34.9 g/dL (30.0-36.0); Mean Corpuscular Hemoglobin 31.9 pg (28.0-34.0); Mean Corpuscular Volume 91.4 fl (80-94); Mean Platelet Volume 10.7 fL (7.4-10.4); Monocytes # 0.8 10^3/uL (0.2-0.9); Monocytes % 7.4 %; Neutrophils # 8.49 10^3/uL (1.8-7.7); Neutrophils % 77.2 %; Nucleated Red Blood Cells % 0 %; Platelet Count 174 10^3/cmm (130-400); Red Blood Count 4.86 10^6/uL (4.1-5.3); Red Cell Distribution Width 12.2 % (12.1-15.1)
[2022-02-07 22:39] VITALS: BP 170/90; PULSE 96; RESP 16; O2SAT 97
[2022-02-07 22:58] LABS: Alanine Aminotransferase 21 U/L (0-41); Albumin Level 4.2 g/dL (3.5-5.2); Alkaline Phosphatase 109 U/L (40-130); Blood Urea Nitrogen 10 mg/dL (6-20); Calcium 9.3 mg/dL (8.5-10.5); Carbon Dioxide 27 mmol/L (22-29); Chloride 94 mmol/L (98-107); Globulin 3.3 g/dL (1.3-4.6); Glomerular Filtration Rate 119.4 mL/min (90-130); Glucose 412 mg/dL (65-115); Osmolality Calculated 292 mOsm/kg (285-295); Sodium 133 mmol/L (136-145); Total Bilirubin 0.5 mg/dL (0.15-1.2); Total Protein 7.5 g/dL (6.6-8.7)
[2022-02-07] MEDS: sulfamethoxazole-trimeth DS 160-800 mg Tablet 1 TAB PO (23:04)
[2022-02-07] MEDS: cefTRIAXone 1,000 MG in sodium chloride 0.9% (plus) 50 ML 100 MG IV (23:05)
[2022-02-07 23:08] LABS: Anion Gap 16.5 (5-19); Aspartate Amino Transferase 16 U/L (0-40); Potassium 4.5 mmol/L (3.5-5.1)
[2022-02-07 23:43] VITALS: BP 132/78; PULSE 88; RESP 18
== END 2022-02-07 23:44 | disposition home or self-care (01) ==
PROVIDERS: Emergency Medicine; Emergency Provider Nurse Practitioner Family; PCP Internal Medicine
DX: L03.116 Cellulitis of left lower limb (principal); Z79.84 Long term (current) use of oral hypoglycemic drugs; E11.9 Type 2 diabetes mellitus without complications; E78.5 Hyperlipidemia, unspecified; F17.210 Nicotine dependence, cigarettes, uncomplicated
CPT/HCPCS: 36415; 73610; 80053; 83605; 85025; 87040; 96365; 99284; J0696

== ENCOUNTER 2022-05-12 14:52 | Outpatient (CLI) | payer BC, SELFPAY ==
--- NOTE | 2022-05-12 15:12 | XR_ITS ---
WS: [id number] XR foot LT min 3V* [id number] REASON FOR EXAM: [id number] with foot ulcer; rule out osteomyelitis FINDINGS: No fracture. No periosteal reaction or destructive bone change to indicate osteomyelitis. Mild changes of osteoarthrosis in the PIP and DIP joints of the second through the fifth toes. Presumed previous osteotomy of the distal head of the first metatarsal. Significant valgus deformity at the first MTP joint with narrowing of the joint space and subchondral sclerosis and osteophytosis of the proximal phalanx. No significant abnormality in the midfoot. In the hindfoot there is mild narrowing of the subtalar joint with mild subchondral sclerosis. There are small calcaneal Achilles and plantar osteophytes. Extensive arterial calcification in the dorsum and plantar foot. XR/XR foot LT min 3V* [id number] IMPRESSION: No findings of osteomyelitis. Osteoarthritis involving the forefoot as above.
== END 2022-05-12 14:53 | disposition home or self-care (01) ==
LOC: RAD 14:59
PROVIDERS: PCP Internal Medicine; Visit Provider Thoracic Surgery (Cardiothoracic Vascular Surgery)
DX: E11.621 Type 2 diabetes mellitus with foot ulcer (principal); L97.509 Non-pressure chronic ulcer of other part of unspecified foot with unspecified severity; M19.072 Primary osteoarthritis, left ankle and foot
CPT/HCPCS: 73630

== ENCOUNTER 2022-09-14 16:22 | Outpatient (CLI) | payer BC, SELFPAY ==
--- NOTE | 2022-09-14 16:39 | XRR_ITS ---
PROCEDURE INFORMATION: Exam: XR Left Foot Exam date and time: 09/14/2022 5:00 PM Age: 52 years old Clinical indication: Condition or disease; Other: Foot ulcer; Additional info: E11.621 - type 2 diabetes mellitus with foot ulcer TECHNIQUE: Imaging protocol: Radiologic exam of the left foot. Views: 3 or more views. COMPARISON: CR XR foot LT min 3V* [id number] 05/12/2022 3:13 PM FINDINGS: Bones/joints: Hallux valgus deformity great toe and 2nd toe. No acute bony abnormalities seen. Soft tissues: Normal. XR/XR foot LT min 3V* [id number] IMPRESSION: 1. Hallux valgus deformity 1st and 2nd toe 2. Otherwise No acute findings.
== END 2022-09-14 16:23 | disposition home or self-care (01) ==
LOC: RAD 16:26
PROVIDERS: PCP Internal Medicine; Visit Provider Nurse Practitioner Family
DX: M20.12 Hallux valgus (acquired), left foot (principal); L97.529 Non-pressure chronic ulcer of other part of left foot with unspecified severity
CPT/HCPCS: 73630

== ENCOUNTER 2022-10-19 17:00 | Outpatient (CLI) | payer BC, SELFPAY ==
[2022-10-19 18:13] LABS: Basophils # 0.1 10^3/uL (0.0-0.1); Basophils % 0.8 %; Eosinophils # 0.1 10^3/uL (0.0-0.8); Eosinophils % 1.5 %; Hematocrit 45.2 % (42.0-52.0); Hemoglobin 15.7 g/dL (11.7-16.6); Lymphocytes # 2.2 10^3/uL (0.8-4.8); Mean Corpuscular HGB Conc 34.7 g/dL (30.0-36.0); Mean Corpuscular Hemoglobin 30.8 pg (28.0-34.0); Mean Corpuscular Volume 88.6 fl (80-94); Monocytes # 0.5 10^3/uL (0.2-0.9); Monocytes % 6.8 %; Neutrophils # 4.42 10^3/uL (1.8-7.7); Neutrophils % 60.6 %; Nucleated Red Blood Cells % 0 %; Platelet Count 179 10^3/cmm (130-400); Red Cell Distribution Width 12.3 % (12.1-15.1); White Blood Count 7.3 10^3/uL (4.0-10.0)
[2022-10-19 18:40] LABS: Alanine Aminotransferase 23 U/L (0-41); Albumin Level 4.4 g/dL (3.5-5.2); Alkaline Phosphatase 122 U/L (40-130); Anion Gap 14.9 (5-19); Aspartate Amino Transferase 17 U/L (0-40); Blood Urea Nitrogen 9 mg/dL (6-20); Calcium 8.7 mg/dL (8.5-10.5); Carbon Dioxide 27 mmol/L (22-29); Chloride 95 mmol/L (98-107); Globulin 3.1 g/dL (1.3-4.6); Glomerular Filtration Rate 101.9 mL/min (90-130); Osmolality Calculated 297 mOsm/kg (285-295); Potassium 4.9 mmol/L (3.5-5.1); Sodium 132 mmol/L (136-145); Total Bilirubin 0.7 mg/dL (0.15-1.2); Total Protein 7.5 g/dL (6.6-8.7)
[2022-10-20 15:03] LABS: Glucose 530 mg/dL (65-115)
== END 2022-10-19 17:01 | disposition home or self-care (01) ==
PROVIDERS: PCP Internal Medicine; Visit Provider Nurse Practitioner Family
DX: L97.522 Non-pressure chronic ulcer of other part of left foot with fat layer exposed (principal)
CPT/HCPCS: 80053; 85025

== ENCOUNTER 2022-11-18 07:01 | Outpatient (CLI) | payer BC, SELFPAY ==
--- NOTE | 2022-11-18 07:15 | MR_ITS ---
WS: [id number] MRI LEFT FOOT with and without CONTRAST. COMPARISON: LEFT foot radiograph 09/15/2019. Multiplanar, multisequence imaging is performed with and without contrast. Postcontrast imaging Mult iHance 20 cc IV. Mild hallux valgus deformity. Small marginal erosions involving the first metatarsal head. There is p artial subluxation at the first metatarsophalangeal joint. There is mild soft tissue thickening surro unding the first metatarsal head. No additional erosions in the metatarsal heads. No widening of the Lisfranc joint. No marrow edema or fracture. Soft tissue ulceration along the plantar surface of the foot at the level of the first metatarsal hea d. There is edema and soft tissue erosive type changes. Maximum transverse diameter is approximately 1.5 cm with a depth of 0.4 cm. There is mild of the adjacent soft tissues. No abscess. No osteomyelit is or extension of the edema or enhancement to the bone. MR/MR foot LT wo/w con [id number] IMPRESSION: 1. Subcutaneous soft tissue ulceration along the plantar surface of the foot a t the level of the first metatarsal head. Ulcer measures 1.5 cm transversely wi th a depth of 0.4 cm. Changes of cellulitis but no abscess. 2. No osteomyelitis. 3. Partial subluxation and hallux valgus at the first metatarsophalangeal join t. Small overhanging erosions. Consider gout also is a possible etiology.
[2022-11-18] MEDS: gadobenate dimeglumine 20 mL vial IV (08:16)
== END 2022-11-18 07:02 | disposition home or self-care (01) ==
LOC: RAD 07:05
PROVIDERS: PCP Internal Medicine; Visit Provider Nurse Practitioner Family
DX: L97.522 Non-pressure chronic ulcer of other part of left foot with fat layer exposed (principal)
CPT/HCPCS: 73720; A9577

== ENCOUNTER → 2022-11-22 16:40 | Outpatient (BNVA) | payer BC, SELFPAY | PROVIDERS: PCP Internal Medicine; Referring Provider Nurse Practitioner Family; Visit Provider Internal Medicine | DX: E78.5 Hyperlipidemia, unspecified (principal); E11.621 Type 2 diabetes mellitus with foot ulcer; L97.509 Non-pressure chronic ulcer of other part of unspecified foot with unspecified severity | CPT/HCPCS: 36415; 80053; 80061; 82044; 83036; 83721; 84681 ==

== ENCOUNTER 2023-06-03 12:13 | Emergency (ER) | payer BC, SELFPAY ==
[2023-06-03 12:59] VITALS: BP 160/83; PULSE 87; RESP 16; TEMP 36.5; O2SAT 98
--- NOTE | 2023-06-03 13:31 | USCV_ITS ---
Willard Tran Age: 53 Gender: M : 1970 Exam Date: 06/03/2023 13:59 Ordering Phys: Eve Argueta MD Technologist: Exam [place] [facility] [place]: Sores and pain HISTORY: Lower extremity pain. PROCEDURES: Venous duplex imaging was performed in bilateral lower extremities. The following venous structures were evaluated: common femoral vein, profunda vein, proximal portion of the greater saphenous vein, superficial femoral vein, and the popliteal vein. In addition, the posterior tibial and peroneal trunk were evaluated. Serial compression, augmentation maneuvers, and spectral Doppler flow evaluation were performed. FINDINGS: No evidence of DVT seen in any vessel visualized at this time. ?partial superficial thrombus at GSV BK. all other wnl CONCLUSIONS No evidence of right lower extremity DVT. No evidence of left lower extremity DVT. Partial SVT LEFT GSV below the knee Notified Dr Ng at 1700 06/03/23 Yadiel Del Rosario MD (Electronically Signed) Final Date: 03 June 2023 17:34 S
--- NOTE | 2023-06-03 14:24 | ED_ITS ---
HPI - Extremity Problem 2 General: Chief complaint: Extremity Problem,Nontraumatic Stated complaint: dr howell, left leg pain Time Seen by Provider: 06/03/23 14:00 Source: patient Mode of arrival: ambulatory History of Present Illness: 53-year-old male presents emergency room by left leg pain and swelling. He is a history of diabetes mellitus there is a concern he may have a clot. He is not currently on any anticoagulation. He does have diabetic foot ulcers that are being treated wound care on the right foot he recently had a wound that healed on the sole of the first metatarsal phalangeal joint on the left foot. No fever sweats chills no shortness of breath or chest pain Complaint: extremity pain Onset (ago): minute(s) Pain Consistency: constant Location: left and lower extremity Quality: aching Radiation: proximal Relieving factors: nothing Exacerbating factors: nothing Associated symptoms: Deny arthralgias, chest pain, fever(s), myalgias, rash or short of breath Review of Systems 2 Const: Denies: fever(s), chills, fatigue or malaise Card: Denies: chest pain Resp: Denies: dyspnea GI: Denies: abdominal pain : Denies: dysuria, urinary frequency or urinary urgency Musc: Denies: neck pain or back pain Skin/Breast: Denies: rash PFSH ED 2 PFSH: Medical History Type 2 diabetes mellitus, without long-term current use of insulin Dyslipidemia Splenomegaly PAD (peripheral artery disease) Diabetic foot ulcer Surgical History S/P hernia repair Family History Other Cancer Diabetes Hypertension Social History Smoking and tobacco/nicotine status: current every day tobacco/nicotine user smokeless tobacco Alcohol intake: never Substance/Drug Use: never Physical Exam 2 Const: GENERAL APPEARANCE: cooperative and comfortable O RIENTATION/CONSCIOUSNESS: Yes awake, Yes oriented to person, Yes oriented to place and Yes oriented to time HENMT: COMMON NORMALS: normocephalic, atraumatic and hearing grossly normal bilaterally HEAD & SCALP: normocephalic and atraumatic Resp: COMMON NORMALS: normal respiratory effort, No retractions, No use of accessory muscles and clear to auscultation bilaterally AUSCULTATION: clear to auscultation bilaterally Cardio: COMMON NORMALS: regular rate, regular rhythm and No murmurs present (Cardio) RATE: regular rate RHYTHM: regular rhythm GI: COMMON NORMALS: Soft to palpation and No hepatosplenomegaly present A USCULTATION: Yes normoactive bowel sounds PALPATION: Yes Soft to palpation, No Tenderness to palpation present (GI), No Guarding due to palpation present (GI) and Yes No hepatosplenomegaly present Extremity: COMMON NORMALS: capillary refill normal, no clubbing, cyanosis or edema and no pedal edema OTHER: No edema lower extremities mild calf tenderness on the left calf and prominent varicose veins no redness or erythema. Examination of the foot open diabetic wounds with some tunneling into the first MTP joint on the right there is a preulcerative callus with what appears to be developing ulcer under the callus on the left sole of the MTP joint. Neuro: SENSORIUM/ORIENTATION: Yes oriented to person, Yes oriented to place and Yes oriented to time Skin: COMMON NORMALS: no rashes or lesions noted GENERAL SKIN EXAM: no rashes or lesions noted Course 2 Vital Signs: Vital signs: Vital Signs Temperature 97.7 F 06/03/23 12:59 Pulse Rate 71 06/03/23 15:52 Respiratory Rate 16 06/03/23 12:59 Blood Pressure 129/93 06/03/23 15:52 Pulse Oximetry 95 06/03/23 15:52 Oxygen Delivery Me thod Room Air 06/03/23 15:52 MDM - Extremity (Nontraumatic) Medical Decision Making Superficial thrombophlebitis no DVT on venous duplex. Patient also has some very concerning preulcerative calluses. Elevation moist heat 10 to 15 minutes at a time 3-4 times a day for the superficial thrombophlebitis. Strongly encouraged him to follow-up with wound care or podiatry for the preulcerative calluses on his feet. Medical Records I reviewed the patient's medical records. Lab Data I reviewed the patient's lab results. 06/03/23 14:20 06/03/23 14:20 Laboratory Results WBC 6.58 10^3/uL (3.29-11.43) 06/03/23 14:20 RBC 5.21 10^6/uL (3.85-5.65) 06/03/23 14:20 Hgb 15.90 g/dL (11.27-16.99) 06/03/23 14:20 Hct 46.2 % (37-53) 06/03/23 14:20 MCV 88.7 fl (82-101) 06/03/23 14:20 MCH 30.5 pg (27-33) 06/03/23 14:20 MCHC 34.4 g/dL (30-55) 06/03/23 14:20 RDW 12.4 % (12.1-15.1) 06/03/23 14:20 Plt Count 190 10^3/cmm (157-399) 06/03/23 14:20 MPV 11.4 fL (7.4-10.4) H 06/03/23 14:20 Neut % (Auto) 64.0 % 06/03/23 14:20 Lymph % (Auto) 26.4 % 06/03/23 14:20 [place] % (Auto) 6.5 % 06/03/23 14:20 Eos % (Auto) 2.0 % 06/03/23 14:20 Baso % (Auto) 0.9 % 06/03/23 14:20 Neut # (Auto) 4.21 10^3/uL (1.8-7.7) 06/03/23 14:20 Lymph # (Auto) 1.7 10^3/uL (0.8-4.8) 06/03/23 14:20 [place] # (Auto) 0.4 10^3/uL (0.2-0.9) 06/03/23 14:20 Eos # (Auto) 0.1 10^3/uL (0.0-0.8) 06/03/23 14:20 Baso # (Auto) 0.1 10^3/uL (0.0-0.1) 06/03/23 14:20 Nucleated RBC % (auto) 0 % 06/03/23 14:20 Nucleated RBCs # 0.0 /100WBC 06/03/23 14:20 Sodium 135 mmol/L (136-145) L 06/03/23 14:20 Potassium 4.4 mmol/L (3.5-5.1) 06/03/23 14:20 Chloride 97 mmol/L (98-107) L 06/03/23 14:20 Carbon Dioxide 27 mmol/L (22-29) 06/03/23 14:20 Anion Gap 15.4 (5-19) 06/03/23 14:20 BUN 11 mg/dL (6-20) 06/03/23 14:20 Creatinine 0.8 mg/dL (0.7-1.2) 06/03/23 14:20 GFR Calculation 101.5 mL/min (90-130) 06/03/23 14:20 Glucose 429 mg/dL (65-115) H 06/03/23 14:20 Calculated Osmolality 298 mOsm/kg (285-295) H 06/03/23 14:20 Calcium 8.9 mg/dL (8.5-10.5) 06/03/23 14:20 Total Bilirubin 0.5 mg/dL (0.15-1.2) 06/03/23 14:20 AST 17 U/L (0-40) 06/03/23 14:20 ALT 20 U/L (0-41) 06/03/23 14:20 Alkaline Phosphatase 121 U/L (40-130) 06/03/23 14:20 Creatine Kinase 196 U/L (39-308) 06/03/23 14:20 C-Reactive Protein 4.4 mg/L (0.0-4.9) 06/03/23 14:20 Total Protein 7.5 g/dL (6.6-8.7) 06/03/23 14:20 Albumin 4.3 g/dL (3.5-5.2) 06/03/23 14:20 Globulin 3.2 g/dL (1.3-4.6) 06/03/23 14:20 All radiology interpretation(s) finalized by discharge Discharge Plan Discharge Patient Disposition: Home Clinical Impression: Superficial thrombophlebitis Condition: Stable Prescriptions: New aspirin 81 mg tablet,delayed release (DR/EC) 81 mg PO DAILY Qty: 30 0RF No Action mupirocin calcium 2 % cream 1 applic topical BID 28 Days Qty: 30 0RF (DME) Diabetic shoes with molded inserts See Rx Instructions .Route .MEDSUPPLY Qty: 1 0RF Rx Instructions: As directed doxycycline hyclate 100 mg capsule 100 mg PO BID 10 Days Qty: 20 0RF (DME) [place] boot to the left See Rx Instructions .Route .MEDSUPPLY Qty: 1 0RF Rx Instructions: As directed by SHAMA&0 atorvastatin 10 mg tablet 40 mg PO .qhs Qty: 90 1RF insulin glargine [Lantus Solostar U-100 Insulin] 100 unit/mL (3 mL) insulin pen 60 unit SUBCUT DAILY Qty: 15 2RF (DME) FreeStyle Lite Strips Strip See Rx Instructions .ROUTE .MEDSUPPLY Qty: 100 2RF Rx Instructions: TWICE DAILY lisinopril 5 mg tablet 5 mg PO ONCE Qty: 30 0RF metformin 500 mg tablet extended release 24 hr 500 mg PO BID Qty: 60 0RF Januvia 100 mg tablet 100 mg PO DAILY Qty: 30 0RF sulfamethoxazole-trimethoprim [Bactrim DS] 800-160 mg tablet 1 tab PO BID Qty: 14 0RF dexamethasone 6 mg tablet 6 mg PO DAILY Qty: 7 0RF albuterol sulfate 90 mcg/actuation HFA aerosol inhaler 2 inh INHALATION Q4H PRN (Reason: shortness of breath or wheezing) Qty: 18 0RF Discharge Orders: Discharge ED (Routine); Ordered 06/03/23 Ordered By: Nicolas Ng Referrals: Pablo Orona, [Primary Care Provider] - Discharge Diet: Usual diet Discharge Activity: Increase activity as tolerated Patient Instructions: Superficial Thrombophlebitis (ED), Opioid Safety, Pain Management Activity Restrictions/Additional Instructions: Thank you for choosing [facility] for your healthcare needs today. Please realize this is an emergency room and that we are providing you with a medical screening exam and this may not be complete and all inclusive of all the testing and or work up that you may need to determine your ailment or severity of your illness. It is very important that you follow up as instructed or that you return to the Emergency Department should you have concerns or if your condition changes or worsens in any way. Stand Alone Forms: Work/School Release Coding Level of Care Code ED [employer]
[2023-06-03 14:33] VITALS: BP 141/95; PULSE 75; O2SAT 94
[2023-06-03 14:55] LABS: Basophils # 0.1 10^3/uL (0.0-0.1); Basophils % 0.9 %; Eosinophils # 0.1 10^3/uL (0.0-0.8); Hematocrit 46.2 % (37-53); Lymphocytes # 1.7 10^3/uL (0.8-4.8); Lymphocytes % 26.4 %; Mean Corpuscular HGB Conc 34.4 g/dL (30-55); Mean Corpuscular Hemoglobin 30.5 pg (27-33); Mean Corpuscular Volume 88.7 fl (82-101); Mean Platelet Volume 11.4 fL (7.4-10.4); Monocytes # 0.4 10^3/uL (0.2-0.9); Monocytes % 6.5 %; Neutrophils # 4.21 10^3/uL (1.8-7.7); Nucleated Red Blood Cells % 0 %; Platelet Count 190 10^3/cmm (157-399); Red Blood Count 5.21 10^6/uL (3.85-5.65); Red Cell Distribution Width 12.4 % (12.1-15.1); White Blood Count 6.58 10^3/uL (3.29-11.43)
[2023-06-03 15:15] LABS: Alanine Aminotransferase 20 U/L (0-41); Albumin Level 4.3 g/dL (3.5-5.2); Alkaline Phosphatase 121 U/L (40-130); Anion Gap 15.4 (5-19); Aspartate Amino Transferase 17 U/L (0-40); Blood Urea Nitrogen 11 mg/dL (6-20); C Reactive Protein 4.4 mg/L (0.0-4.9); Calcium 8.9 mg/dL (8.5-10.5); Carbon Dioxide 27 mmol/L (22-29); Chloride 97 mmol/L (98-107); Creatine Phosphokinase 196 U/L (39-308); Creatinine Clr Calc Pharmacy 144.6488; Globulin 3.2 g/dL (1.3-4.6); Glomerular Filtration Rate 101.5 mL/min (90-130); Glucose 429 mg/dL (65-115); Osmolality Calculated 298 mOsm/kg (285-295); Potassium 4.4 mmol/L (3.5-5.1); Sodium 135 mmol/L (136-145); Total Bilirubin 0.5 mg/dL (0.15-1.2); Total Protein 7.5 g/dL (6.6-8.7)
[2023-06-03 15:52] VITALS: BP 129/93; PULSE 71; O2SAT 95
== END 2023-06-03 16:04 | disposition home or self-care (01) ==
PROVIDERS: Emergency Medicine; Emergency Provider Family Medicine; PCP Internal Medicine
DX: I80.02 Phlebitis and thrombophlebitis of superficial vessels of left lower extremity (principal); Z79.4 Long term (current) use of insulin; Z79.890 Hormone replacement therapy; E11.9 Type 2 diabetes mellitus without complications; E78.5 Hyperlipidemia, unspecified; F17.220 Nicotine dependence, chewing tobacco, uncomplicated
CPT/HCPCS: 36415; 80053; 82550; 85025; 86140; 93970; 99284

== ENCOUNTER 2023-06-15 09:29 | Outpatient (CLI) | payer BC, SELFPAY ==
--- NOTE | 2023-06-15 09:37 | XRR_ITS ---
PROCEDURE INFORMATION: Exam: XR Right Foot Exam date and time: 06/15/2023 9:48 AM Age: 53 years old Clinical indication: Condition or disease; Other: Diabetic ulcer for 3+ months; Additional info: Diabetic foot ulcer right first metatarsal TECHNIQUE: Imaging protocol: Radiologic exam of the right foot. Views: 1 or 2 views. COMPARISON: CR XR foot RT min 3V* [id number] 09/01/2021 1:28 PM FINDINGS: Bones/joints: Marked lateral angulation of the right great toe distal phalanx with moderate to severe arthritis of the right great toe interphalangeal joint. There is some deformity with slight mottling of the right great toe phalanges which may simply be degenerative, but given the history, osteomyelitis is possible. Otherwise, unremarkable. Soft tissues: Normal. Vasculature: Arterial calcification. XR/XR foot RT 2V [id number] IMPRESSION: Arthritis and deformity of the right great toe is chronic. There could be superimposed osteomyelitis involving the right great toe. Consider MRI for this.
== END 2023-06-15 09:30 | disposition home or self-care (01) ==
LOC: RAD 09:30
PROVIDERS: PCP Internal Medicine; Visit Provider Thoracic Surgery (Cardiothoracic Vascular Surgery)
DX: M19.071 Primary osteoarthritis, right ankle and foot (principal); M20.5X1 Other deformities of toe(s) (acquired), right foot
CPT/HCPCS: 73620

== ENCOUNTER 2023-06-27 14:20 | Outpatient (CLI) | payer BC, SELFPAY ==
--- NOTE | 2023-06-27 14:30 | MR_ITS ---
WS: [id number] MRI RIGHT FOOT WITH AND WITHOUT CONTRAST. COMPARISON: Foot radiograph 06/15/2023 Multiplanar, multisequence imaging is performed with and without contrast. MultiHance 20 mL IV. No acute fractures. Normal tarsometatarsal alignment. Lisfranc ligament is normal. No metatarsal head erosions. Chronic deformity with loss of joint space and asymmetry at the first IP joint. There is v brenna mild increased T2 signal involving a large portion of the proximal first phalanx. The distal phal anx more difficult to visualize. There is a soft tissue ulceration along the plantar surface of the first toe at the level of the prox imal phalanx. Soft tissue ulcer extends over a length of 1.3 cm and transversely by 1.3 cm. There is mild soft tissue edema extending to the flexor hallucis longus tendon. There is no abscess. No signif icant increased signal within the tendon itself. On the postcontrast imaging there is some very mild marrow enhancement involving the proximal and mor e plantar surface of the proximal first phalanx. There is a small amount of edema and fluid between t he distal flexor hallucis longus tendon and the proximal phalanx. The distal phalanx of the first toe is more difficult to visualize due to its very small caliber. There is no joint effusion or abnormal enhancement at the first metatarsophalangeal joint. Hammertoe deformities. IMPRESSION: 1. Focal soft tissue ulceration along the plantar surface centered at the first proximal phalanx. 2. There is mild soft tissue enhancement involving the ulceration associated with the first toe. 3. There is also very mild enhancement involving a small portion of the proximal phalanx first toe a nd a small amount of adjacent fluid between the flexor hallucis longus tendon and the first proximal phalanx. Findings of mild osteomyelitis.
[2023-06-27] MEDS: gadobenate dimeglumine 20 mL vial IV (15:22)
== END 2023-06-27 14:21 | disposition home or self-care (01) ==
LOC: RAD 14:21
PROVIDERS: PCP Internal Medicine; Visit Provider Thoracic Surgery (Cardiothoracic Vascular Surgery)
DX: E11.621 Type 2 diabetes mellitus with foot ulcer (principal); L97.519 Non-pressure chronic ulcer of other part of right foot with unspecified severity; E11.69 Type 2 diabetes mellitus with other specified complication; M86.9 Osteomyelitis, unspecified
CPT/HCPCS: 73720; A9577

== ENCOUNTER 2023-06-28 09:39 | Outpatient (CLI) | payer BC, SELFPAY ==
[2023-06-28 10:26] LABS: Basophils # 0.1 10^3/uL (0.0-0.1); Basophils % 1.2 %; Eosinophils # 0.1 10^3/uL (0.0-0.8); Eosinophils % 1.9 %; Hematocrit 47.4 % (37-53); Lymphocytes % 30.1 %; Mean Corpuscular HGB Conc 34.6 g/dL (30-55); Mean Corpuscular Hemoglobin 30.7 pg (27-33); Mean Corpuscular Volume 88.8 fl (82-101); Mean Platelet Volume 10.9 fL (7.4-10.4); Monocytes # 0.5 10^3/uL (0.2-0.9); Neutrophils # 3.84 10^3/uL (1.8-7.7); Neutrophils % 59.3 %; Nucleated Red Blood Cells % 0 %; Platelet Count 165 10^3/cmm (157-399); Red Blood Count 5.34 10^6/uL (3.85-5.65); Red Cell Distribution Width 12.4 % (12.1-15.1); White Blood Count 6.47 10^3/uL (3.29-11.43)
[2023-06-28 10:40] LABS: Erythrocyte Sedimentation Rate 4 mm/hr (0-10)
[2023-06-28 10:42] LABS: Alanine Aminotransferase 24 U/L (0-41); Albumin Level 4.1 g/dL (3.5-5.2); Alkaline Phosphatase 112 U/L (40-130); Anion Gap 11.5 (5-19); Aspartate Amino Transferase 20 U/L (0-40); Blood Urea Nitrogen 11 mg/dL (6-20); Calcium 8.9 mg/dL (8.5-10.5); Carbon Dioxide 28 mmol/L (22-29); Chloride 98 mmol/L (98-107); Globulin 3.1 g/dL (1.3-4.6); Glomerular Filtration Rate 118.4 mL/min (90-130); Glucose 364 mg/dL (65-115); Osmolality Calculated 290 mOsm/kg (285-295); Potassium 4.5 mmol/L (3.5-5.1); Prealbumin 23.8 mg/dL (20-40); Sodium 133 mmol/L (136-145); Total Bilirubin 0.5 mg/dL (0.15-1.2); Total Protein 7.2 g/dL (6.6-8.7)
[2023-06-28 11:05] LABS: Estmated Average Glucose 246; Hemoglobin A1C 10.2 % (4.0-6.0)
== END 2023-06-28 09:40 | disposition home or self-care (01) ==
LOC: LAB 09:41
PROVIDERS: PCP Internal Medicine; Visit Provider Thoracic Surgery (Cardiothoracic Vascular Surgery)
DX: E11.621 Type 2 diabetes mellitus with foot ulcer (principal); L97.509 Non-pressure chronic ulcer of other part of unspecified foot with unspecified severity
CPT/HCPCS: 36415; 80053; 83036; 84134; 85025; 85651; 87070; 87077; 87176; 87186; 87205

== ENCOUNTER 2023-07-21 14:09 | Outpatient (CLI) | payer BC, SELFPAY ==
--- NOTE | 2023-07-21 14:41 | XR_ITS ---
WS: [id number] Exam: XR chest 1V [id number] Date/Time of Exam: 07/21/2023 2:49 PM Reason For Exam: Diabetic Foot Ulcer/ Hyperbaric Clearance Comparison 12/10/2020. The lungs are fully inflated and clear. Normal cardiomediastinal silhouette and regional bony structu res. IMPRESSION: 1. Normal chest.
== END 2023-07-21 14:10 | disposition home or self-care (01) ==
LOC: RAD 14:11
PROVIDERS: PCP Internal Medicine; Visit Provider Thoracic Surgery (Cardiothoracic Vascular Surgery)
DX: Z01.810 Encounter for preprocedural cardiovascular examination (principal); Z01.811 Encounter for preprocedural respiratory examination; E11.621 Type 2 diabetes mellitus with foot ulcer; L97.509 Non-pressure chronic ulcer of other part of unspecified foot with unspecified severity
CPT/HCPCS: 71045; 93005

== ENCOUNTER 2023-08-25 09:22 | Outpatient (CLI) | payer BC, SELFPAY ==
[2023-08-25 09:48] LABS: Basophils # 0.1 10^3/uL (0.0-0.1); Basophils % 0.6 %; Eosinophils # 0.1 10^3/uL (0.0-0.8); Eosinophils % 0.9 %; Hematocrit 47.3 % (37-53); Lymphocytes # 1.7 10^3/uL (0.8-4.8); Lymphocytes % 14.8 %; Mean Corpuscular HGB Conc 34.5 g/dL (30-55); Mean Corpuscular Hemoglobin 31.1 pg (27-33); Mean Corpuscular Volume 90.3 fl (82-101); Mean Platelet Volume 10.2 fL (7.4-10.4); Monocytes # 0.8 10^3/uL (0.2-0.9); Monocytes % 6.6 %; Neutrophils % 76.7 %; Nucleated Red Blood Cells % 0 %; Platelet Count 168 10^3/cmm (157-399); Red Blood Count 5.24 10^6/uL (3.85-5.65); Red Cell Distribution Width 12.8 % (12.1-15.1); White Blood Count 11.35 10^3/uL (3.29-11.43)
[2023-08-25 09:56] LABS: Erythrocyte Sedimentation Rate 2 mm/hr (0-10)
[2023-08-25 10:00] LABS: Alanine Aminotransferase 22 U/L (0-41); Albumin Level 4.2 g/dL (3.5-5.2); Alkaline Phosphatase 100 U/L (40-130); Anion Gap 12.5 (5-19); Aspartate Amino Transferase 17 U/L (0-40); Blood Urea Nitrogen 11 mg/dL (6-20); C Reactive Protein 8.8 mg/L (0.0-4.9); Calcium 9.4 mg/dL (8.5-10.5); Carbon Dioxide 30 mmol/L (22-29); Chloride 97 mmol/L (98-107); Chol HDL Ratio 3.67 mg/dL (1.0-5.00); Cholesterol 143 mg/dL (0-200); Globulin 3.6 g/dL (1.3-4.6); Glomerular Filtration Rate 101.5 mL/min (90-130); Glucose 247 mg/dL (65-115); HDL Cholesterol 39 mg/dL (60-100); LDL Cholesterol Calculated 59 mg/dL (50-129); LDL HDL Ratio 1.51 RATIO (0.00-3.22); Osmolality Calculated 288 mOsm/kg (285-295); Potassium 4.5 mmol/L (3.5-5.1); Sodium 135 mmol/L (136-145); Total Bilirubin 0.7 mg/dL (0.15-1.2); Total Protein 7.8 g/dL (6.6-8.7); Triglycerides 223 mg/dL (0-150)
[2023-08-25 10:09] LABS: Estmated Average Glucose 189; Hemoglobin A1C 8.2 % (4.0-6.0)
== END 2023-08-25 09:23 | disposition home or self-care (01) ==
LOC: LAB 09:25
PROVIDERS: Internal Medicine; PCP Internal Medicine; Visit Provider Thoracic Surgery (Cardiothoracic Vascular Surgery)
DX: E11.621 Type 2 diabetes mellitus with foot ulcer (principal); L97.509 Non-pressure chronic ulcer of other part of unspecified foot with unspecified severity; E11.69 Type 2 diabetes mellitus with other specified complication; M86.9 Osteomyelitis, unspecified; E11.9 Type 2 diabetes mellitus without complications; E78.5 Hyperlipidemia, unspecified
CPT/HCPCS: 36415; 80053; 80061; 83036; 85025; 85651; 86140

== ENCOUNTER 2023-09-29 09:07 | Outpatient (CLI) | payer BC, SELFPAY ==
--- NOTE | 2023-09-29 09:10 | XRR_ITS ---
PROCEDURE INFORMATION: Exam: XR Right Foot Exam date and time: 09/29/2023 9:38 AM Age: 53 years old Clinical indication: Condition or disease; Other: Foot ulcer; Additional info: E11.621 - type 2 diabetes mellitus with foot ulcer TECHNIQUE: Imaging protocol: Radiologic exam of the right foot. Views: 3 or more views. COMPARISON: MR foot RT wo/w con [id number] 06/27/2023 2:31 PM FINDINGS: Bones/joints: . No fracture or dislocation. No obvious changes of osteomyelitis. Soft tissues: Normal. Vasculature: Extensive arterial calcifications. XR/XR foot RT min 3V* [id number] IMPRESSION: No acute findings. No plain film findings of osteomyelitis.
[2023-09-29 09:45] LABS: Basophils # 0.1 10^3/uL (0.0-0.1); Eosinophils # 0.1 10^3/uL (0.0-0.8); Eosinophils % 1.9 %; Hematocrit 44.6 % (37-53); Lymphocytes % 31.9 %; Mean Corpuscular HGB Conc 34.3 g/dL (30-55); Mean Corpuscular Hemoglobin 30.9 pg (27-33); Mean Corpuscular Volume 90.1 fl (82-101); Mean Platelet Volume 10.2 fL (7.4-10.4); Monocytes # 0.6 10^3/uL (0.2-0.9); Neutrophils # 3.53 10^3/uL (1.8-7.7); Neutrophils % 55.9 %; Nucleated Red Blood Cells % 0 %; Platelet Count 172 10^3/cmm (157-399); Red Blood Count 4.95 10^6/uL (3.85-5.65); Red Cell Distribution Width 12.3 % (12.1-15.1); White Blood Count 6.31 10^3/uL (3.29-11.43)
[2023-09-29 09:59] LABS: Anion Gap 14.6 (5-19); Blood Urea Nitrogen 12 mg/dL (6-20); Calcium 8.9 mg/dL (8.5-10.5); Carbon Dioxide 29 mmol/L (22-29); Chloride 99 mmol/L (98-107); Glomerular Filtration Rate 118.4 mL/min (90-130); Glucose 217 mg/dL (65-115); Osmolality Calculated 292 mOsm/kg (285-295); Potassium 4.6 mmol/L (3.5-5.1); Sodium 138 mmol/L (136-145)
== END 2023-09-29 09:08 | disposition home or self-care (01) ==
LOC: LAB 09:08
PROVIDERS: PCP Internal Medicine; Visit Provider Thoracic Surgery (Cardiothoracic Vascular Surgery)
DX: E11.621 Type 2 diabetes mellitus with foot ulcer (principal); L97.509 Non-pressure chronic ulcer of other part of unspecified foot with unspecified severity
CPT/HCPCS: 36415; 73630; 80048; 85025; 86140

== ENCOUNTER → 2023-10-13 09:18 | Outpatient (BNVA) | payer BC, SELFPAY | PROVIDERS: PCP Internal Medicine; Visit Provider Thoracic Surgery (Cardiothoracic Vascular Surgery) | DX: E11.621 Type 2 diabetes mellitus with foot ulcer (principal); L97.509 Non-pressure chronic ulcer of other part of unspecified foot with unspecified severity | CPT/HCPCS: 87070; 87176; 87205 ==

== ENCOUNTER 2023-10-19 07:54 | Emergency (ER) | payer BC, SELFPAY ==
[2023-10-19 08:02] VITALS: BP 166/92; PULSE 80; RESP 18; O2SAT 99; BMI 32.1
[2023-10-19 08:08] VITALS: TEMP 36.7
--- NOTE | 2023-10-19 08:48 | ED_ITS ---
HPI - Extremity Problem 2 General: Chief complaint: Extremity Problem,Nontraumatic Stated complaint: right leg pains Time Seen by Provider: 10/19/23 07:58 History of Present Illness: 53-year-old male with history of diabete s and recurrent foot infections who presents the emergency room with concern for an infection developing around his right foot wound. He has been following with the wound clinic with this for about 6 months now. He says it is hard to get it to heal because he has stable on his feet with work. He says over the last week he has developed some redness in his other toes and little pain going up his foot. No fevers. There is some redness and his other toes and a slight bit of redness going up his foot Review of Systems 2 Narrative: Constitutional symptoms: Negative except as documented in HPI. Skin symptoms: Negative except as documented in HPI. Eye symptoms: Negative except as documented in HPI. ENMT symptoms: Negative except as documented in HPI. Respiratory symptoms: Negative except as documented in HPI. Cardiovascular symptoms: Negative except as documented in HPI. Gastrointestinal symptoms: Negative except as documented in HPI. Genitourinary symptoms: Negative except as documented in HPI. Musculoskeletal symptoms: Negative except as documented in HPI. Neurologic symptoms: Negative except as documented in HPI. Psychiatric symptoms: Negative except as documented in HPI. Endocrine symptoms: Negative except as documented in HPI. PFSH ED 2 PFSH: Medical History Type 2 diabetes mellitus, without long-term current use of insulin Dyslipidemia Splenomegaly PAD (peripheral artery disease) Diabetic foot ulcer Surgical History S/P hernia repair Family History Other Cancer Diabetes Hypertension Social History Smoking and tobacco/nicotine status: current every day tobacco/nicotine user smokeless tobacco Alcohol intake: never Substance/Drug Use: never Physical Exam 2 Narrative: EXAM NARRATIVE: General: Alert, no acute distress. Skin: Warm, dry. There is a 3 cm wound that is about half centimeter deep on the ball of his right foot. This appears to be healing well. There is no surrounding erythema or edema. There is some mild redness in his toes and perhaps a little bit of redness going up the top of his foot. Head: Normocephalic, atraumatic. Neck: Supple, trachea midline. Eye: Extraocular movements are intact. Ears, nose, mouth and throat: mucosa moist. Cardiovascular: Regular, Normal peripheral perfusion. Respiratory: Lungs are clear to auscultation, respirations are non-labored, breath sounds are equal, Symmetrical chest wall expansion. Gastrointestinal: Soft, Nontender, Non distended Musculoskeletal: Normal ROM, no deformity. Neurological: Alert and oriented, No focal neurological deficit observed. Psychiatric: Cooperative, appropriate mood & affect. Course 2 Vital Signs: Vital signs: Vital Signs Temperature 98.1 F 10/19/23 08:08 Pulse Rate 69 10/19/23 09:00 Respiratory Rate 18 10/19/23 08:02 Blood Pressure 143/89 10/19/23 09:00 Pulse Oximetry 99 10/19/23 09:00 Oxygen Delivery Me thod Room Air 10/19/23 09:00 MDM - Extremity (Nontraumatic) Medical Decision Making Medical decision making: Differential diagnosis including but not limited to and based on the above HPI, review of systems and physical exam: X-ray and white count and inflammatory markers ordered to evaluate for osteomyelitis and severity of infection. Orders placed to evaluate differential diagnosis based on the above differential, HPI and physical exam Lab Review: Laboratory results were reviewed and interpreted by myself the emergency room physician. No leukocytosis. ESR is 15 and CRP is 10 which would indicate this likely is not osteo particularly given that the x-ray is negative. X-ray of the right foot: No evidence of fracture or dislocation. No evidence of osteomyelitis. He can see soft tissue deformity. This was reviewed and interpreted by myself the emergency room physician. I also reviewed the radiology report. I reviewed the patient's medical record. Reexamination: Patient remained stable. No increased work of breathing. No altered mental status. No change in his wound. Consultation: I spoke with Dr. Tejada with podiatry. He reviewed images of the wound, reviewed the x-ray and lab work and agrees that this likely is not an osteomyelitis. He recommends Cipro and clinda and a follow-up in podiatry clinic if he does not improve and to continue in wound care clinic Assessment and plan: Diabetic foot infection - Discharged home - Discussed plan with patient. Answered any questions. - Evaluation and treatment of this problem were appropriate in the emergency setting. Lab Data 10/19/23 09:00 10/19/23 09:00 Radiology Impressions Foot X-Ray 10/19/23 08:48 IMPRESSION: 1. Soft tissue swelling and ulceration. No fracture or bone destruction identified at this time. Laboratory Results WBC 6.95 10^3/uL (3.29-11.43) 10/19/23 09:00 RBC 4.70 10^6/uL (3.85-5.65) 10/19/23 09:00 Hgb 14.60 g/dL (11.27-16.99) 10/19/23 09:00 Hct 43.3 % (37-53) 10/19/23 09:00 MCV 92.1 fl (82-101) 10/19/23 09:00 MCH 31.1 pg (27-33) 10/19/23 09:00 MCHC 33.7 g/dL (30-55) 10/19/23 09:00 RDW 12.4 % (12.1-15.1) 10/19/23 09:00 Plt Count 204 10^3/cmm (157-399) 10/19/23 09:00 MPV 9.9 fL (7.4-10.4) 10/19/23 09:00 Neut % (Auto) 58.9 % 10/19/23 09:00 Lymph % (Auto) 28.8 % 10/19/23 09:00 [place] % (Auto) 8.5 % 10/19/23 09:00 Eos % (Auto) 2.2 % 10/19/23 09:00 Baso % (Auto) 1.3 % 10/19/23 09:00 Neut # (Auto) 4.10 10^3/uL (1.8-7.7) 10/19/23 09:00 Lymph # (Auto) 2.0 10^3/uL (0.8-4.8) 10/19/23 09:00 [place] # (Auto) 0.6 10^3/uL (0.2-0.9) 10/19/23 09:00 Eos # (Auto) 0.2 10^3/uL (0.0-0.8) 10/19/23 09:00 Baso # (Auto) 0.1 10^3/uL (0.0-0.1) 10/19/23 09:00 Nucleated RBC % (auto) 0 % 10/19/23 09:00 Nucleated RBCs # 0.0 /100WBC 10/19/23 09:00 ESR 15 mm/hr (0-10) H 10/19/23 09:00 Sodium 135 mmol/L (136-145) L 10/19/23 09:00 Potassium 4.8 mmol/L (3.5-5.1) 10/19/23 09:00 Chloride 98 mmol/L (98-107) 10/19/23 09:00 Carbon Dioxide 28 mmol/L (22-29) 10/19/23 09:00 Anion Gap 13.8 (5-19) 10/19/23 09:00 BUN 12 mg/dL (6-20) 10/19/23 09:00 Creatinine 0.8 mg/dL (0.7-1.2) 10/19/23 09:00 GFR Calculation 101.5 mL/min (90-130) 10/19/23 09:00 Glucose 197 mg/dL (65-115) H 10/19/23 09:00 Calculated Osmolality 285 mOsm/kg (285-295) 10/19/23 09:00 Lactic Acid 1.2 mmol/L (0.5-2.2) 10/19/23 09:00 Calcium 9.0 mg/dL (8.5-10.5) 10/19/23 09:00 Total Bilirubin 0.5 mg/dL (0.15-1.2) 10/19/23 09:00 AST 16 U/L (0-40) 10/19/23 09:00 ALT 14 U/L (0-41) 10/19/23 09:00 Alkaline Phosphatase 101 U/L (40-130) 10/19/23 09:00 C-Reactive Protein 10.1 mg/L (0.0-4.9) H 10/19/23 09:00 Total Protein 7.3 g/dL (6.6-8.7) 10/19/23 09:00 Albumin 3.8 g/dL (3.5-5.2) 10/19/23 09:00 Globulin 3.5 g/dL (1.3-4.6) 10/19/23 09:00 All radiology interpretation(s) finalized by discharge Discharge Plan Discharge Patient Disposition: Home Clinical Impression: Diabetic foot infection Condition: Stable Prescriptions: New metronidazole 500 mg tablet 500 mg PO Q8H 10 Days Qty: 30 0RF ciprofloxacin HCl 500 mg tablet 500 mg PO BID 10 Days Qty: 20 0RF No Action (DME) Diabetic shoes with molded inserts See Rx Instructions .Route .MEDSUPPLY Qty: 1 0RF Rx Instructions: As directed (DME) hoopa boot to the left See Rx Instructions .Route .MEDSUPPLY Qty: 1 0RF Rx Instructions: As directed by SHAMA&0 clindamycin HCl 300 mg capsule 300 mg PO Q8H Qty: 21 0RF levofloxacin 500 mg tablet 500 mg PO DAILY Qty: 7 0RF (DME) FreeStyle Lite Strips Strip See Rx Instructions .ROUTE .MEDSUPPLY Qty: 100 2RF Rx Instructions: TWICE DAILY Lantus Solostar U-100 Insulin 100 unit/mL (3 mL) insulin pen 30 unit SUBCUT BID Discharge Orders: Discharge ED (Routine); Ordered 10/19/23 Ordered By: Eve Argueta Referrals: Pablo Orona DO [Primary Care Provider] - 4-7 days Discharge Diet: Usual diet Discharge Activity: Increase activity as tolerated Patient Instructions: Foot Ulcers in a Person with Diabetes (ED) Activity Restrictions/Additional Instructions: Thank you for choosing [facility] for your healthcare needs today. Please realize this is an emergency room and that we are providing you with a medical screening exam and this may not be complete and all inclusive of all the testing and or work up that you may need to determine your ailment or severity of your illness. You have been screened and evaluated and felt safe for discharge. Health conditions do change or evolve sometimes and as such it is important that you follow up with your Primary Doctor to be re checked, 3-5 days is a general good time frame for follow up. You are always welcome to return to the ED for re assessment if your symptoms are worsening or you have new concerns Coding Level of Care Code ED Otr Tanker Truck Driver for Pito Collins
--- NOTE | 2023-10-19 08:48 | XR_ITS ---
WS: [id number] Exam: XR foot RT min 3V* [id number] Date/Time of Exam: 10/19/2023 9:11 AM Reason For Exam: big toe pain. infection Comparison 09/29/2023. Soft tissue edema of the great toe with ulceration. No fracture or bone destruction identified. The j oints are relatively well-maintained. Vascular calcifications about the foot and ankle. Soft tissue u lceration seen along the plantar aspect of the forefoot. XR/XR foot RT min 3V* [id number] IMPRESSION: 1. Soft tissue swelling and ulceration. No fracture or bone destruction identif ied at this time.
[2023-10-19 09:00] VITALS: BP 143/89; PULSE 69; O2SAT 99
[2023-10-19 09:10] LABS: Basophils # 0.1 10^3/uL (0.0-0.1); Basophils % 1.3 %; Eosinophils # 0.2 10^3/uL (0.0-0.8); Eosinophils % 2.2 %; Hematocrit 43.3 % (37-53); Lymphocytes % 28.8 %; Mean Corpuscular HGB Conc 33.7 g/dL (30-55); Mean Corpuscular Hemoglobin 31.1 pg (27-33); Mean Corpuscular Volume 92.1 fl (82-101); Mean Platelet Volume 9.9 fL (7.4-10.4); Monocytes # 0.6 10^3/uL (0.2-0.9); Monocytes % 8.5 %; Neutrophils % 58.9 %; Nucleated Red Blood Cells % 0 %; Platelet Count 204 10^3/cmm (157-399); Red Cell Distribution Width 12.4 % (12.1-15.1); White Blood Count 6.95 10^3/uL (3.29-11.43)
--- NOTE | 2023-10-19 09:27 | PC.PHAR ---
PT STATES TOOK LAST DOSE OF LEVAQUIN THIS MORNING, HAS 4 MORE DAYS OF CLINDAMYCIN 300MG AND HAS TAKEN INSULIN THIS MORNING.
[2023-10-19 09:30] LABS: Alanine Aminotransferase 14 U/L (0-41); Albumin Level 3.8 g/dL (3.5-5.2); Alkaline Phosphatase 101 U/L (40-130); Anion Gap 13.8 (5-19); Aspartate Amino Transferase 16 U/L (0-40); Blood Urea Nitrogen 12 mg/dL (6-20); C Reactive Protein 10.1 mg/L (0.0-4.9); Carbon Dioxide 28 mmol/L (22-29); Chloride 98 mmol/L (98-107); Creatinine Clr Calc Pharmacy 144.6488; Globulin 3.5 g/dL (1.3-4.6); Glomerular Filtration Rate 101.5 mL/min (90-130); Glucose 197 mg/dL (65-115); Osmolality Calculated 285 mOsm/kg (285-295); Potassium 4.8 mmol/L (3.5-5.1); Sodium 135 mmol/L (136-145); Total Bilirubin 0.5 mg/dL (0.15-1.2); Total Protein 7.3 g/dL (6.6-8.7)
[2023-10-19 09:31] LABS: Lactic Sepsis W/Reflex 1.2 mmol/L (0.5-2.2)
[2023-10-19 09:32] LABS: Erythrocyte Sedimentation Rate 15 mm/hr (0-10)
[2023-10-19 11:08] VITALS: BP 143/89; PULSE 69; RESP 18; TEMP 36.7; O2SAT 99
== END 2023-10-19 11:09 | disposition home or self-care (01) ==
PROVIDERS: Emergency Provider Emergency Medicine; PCP Internal Medicine
DX: E11.621 Type 2 diabetes mellitus with foot ulcer (principal); E78.5 Hyperlipidemia, unspecified; F17.220 Nicotine dependence, chewing tobacco, uncomplicated; Z79.4 Long term (current) use of insulin
CPT/HCPCS: 36415; 73630; 80053; 83605; 85025; 85651; 86140; 99284

== ENCOUNTER 2023-11-10 11:06 | Emergency (ER) | payer BC, SELFPAY ==
[2023-11-10 11:46] VITALS: BP 139/81; PULSE 81; RESP 17; TEMP 36.7; O2SAT 98; BMI 32.1
--- NOTE | 2023-11-10 12:06 | XRR_ITS ---
PROCEDURE INFORMATION: Exam: XR Right Foot Exam date and time: 11/10/2023 1:42 PM Age: 53 years old Clinical indication: Condition or disease; Other: Diabetic foot ulcer TECHNIQUE: Imaging protocol: Radiologic exam of the right foot. Views: 3 or more views. COMPARISON: CR XR foot RT min 3V* [id number] 10/19/2023 9:04 AM FINDINGS: Bones/joints: Chronic appearing arthritic change of the 1st interphalangeal joint with prior exam. No acute fracture or dislocation. No interval new bone erosion or destruction from previous exam. Mild calcaneal spur or enthesophyte formation. Soft tissues: Soft tissue swelling or edema is seen about the great toe region with ulceration plantar aspect as noted with prior exam 10/19/2023. Vasculature: Small-vessel arterial calcification. XR/XR foot RT min 3V* [id number] IMPRESSION: Soft tissue swelling and ulceration great toe region, along with chronic arthritic change interphalangeal joint great toe. Findings are chronic with prior exam. No acute osseous abnormality.
[2023-11-10 13:07] VITALS: BP 133/82; PULSE 86; O2SAT 98
[2023-11-10 13:19] LABS: Basophils # 0.1 10^3/uL (0.0-0.1); Basophils % 0.7 %; Eosinophils # 0.1 10^3/uL (0.0-0.8); Eosinophils % 1.2 %; Hematocrit 46.4 % (37-53); Lymphocytes # 1.8 10^3/uL (0.8-4.8); Lymphocytes % 17.3 %; Mean Corpuscular HGB Conc 33.8 g/dL (30-55); Mean Corpuscular Hemoglobin 31.1 pg (27-33); Mean Corpuscular Volume 91.9 fl (82-101); Mean Platelet Volume 10.1 fL (7.4-10.4); Monocytes # 0.9 10^3/uL (0.2-0.9); Monocytes % 8.7 %; Neutrophils # 7.49 10^3/uL (1.8-7.7); Neutrophils % 71.7 %; Nucleated Red Blood Cells % 0 %; Platelet Count 210 10^3/cmm (157-399); Red Blood Count 5.05 10^6/uL (3.85-5.65); Red Cell Distribution Width 12.7 % (12.1-15.1); White Blood Count 10.43 10^3/uL (3.29-11.43)
[2023-11-10 13:23] LABS: Erythrocyte Sedimentation Rate 6 mm/hr (0-10)
[2023-11-10 13:35] LABS: Alanine Aminotransferase 13 U/L (0-41); Albumin Level 4.1 g/dL (3.5-5.2); Alkaline Phosphatase 74 U/L (40-130); Anion Gap 13.4 (5-19); Aspartate Amino Transferase 13 U/L (0-40); Blood Urea Nitrogen 9 mg/dL (6-20); C Reactive Protein 101.2 mg/L (0.0-4.9); Calcium 9.5 mg/dL (8.5-10.5); Carbon Dioxide 30 mmol/L (22-29); Chloride 100 mmol/L (98-107); Creatinine Clr Calc Pharmacy 165.3129; Glomerular Filtration Rate 118.4 mL/min (90-130); Glucose 169 mg/dL (65-115); Osmolality Calculated 291 mOsm/kg (285-295); Potassium 4.4 mmol/L (3.5-5.1); Sodium 139 mmol/L (136-145); Total Bilirubin 0.8 mg/dL (0.15-1.2); Total Protein 8.1 g/dL (6.6-8.7)
--- NOTE | 2023-11-10 13:35 | XRR_ITS ---
PROCEDURE INFORMATION: Exam: XR Right Ankle Exam date and time: 11/10/2023 1:44 PM Age: 53 years old Clinical indication: Condition or disease; Other: Diabetic foot ulcer TECHNIQUE: Imaging protocol: Radiologic exam of the right ankle. Views: 3 or more views. COMPARISON: CR XR foot RT min 3V* [id number] 11/10/2023 1:42 PM FINDINGS: Bones/joints: No fracture or acute osseous abnormality seen about the right ankle. Mild calcaneal spur/enthesophyte formation is seen on the lateral view. Ankle joint appears maintained. Soft tissues: No significant focal soft tissue abnormality. Vasculature: Small-vessel arterial calcification is seen. XR/XR ankle RT min 3V* [id number] IMPRESSION: No fracture or acute osseous abnormality. Small-vessel arterial calcification.
--- NOTE | 2023-11-10 13:36 | XRR_ITS ---
PROCEDURE INFORMATION: Exam: XR Right Tibia and Fibula Exam date and time: 11/10/2023 1:46 PM Age: 53 years old Clinical indication: Condition or disease; Other: Diabetic foot ulcer TECHNIQUE: Imaging protocol: Radiologic exam of the right tibia and fibula. Views: 2 views. COMPARISON: CR XR ankle RT min 3V* [id number] 11/10/2023 1:44 PM FINDINGS: Bones/joints: No fracture or acute osseous abnormality is seen about the right tibia or fibula. Knee and ankle joints appear maintained. Soft tissues: No significant focal soft tissue abnormality. Vasculature: Small-vessel arterial calcification is seen posteriorly. XR/XR tibia fibula RT 2V [id number] IMPRESSION: No fracture or acute osseous abnormality. Arterial vascular calcification.
--- NOTE | 2023-11-10 13:37 | ED_ITS ---
HPI - Extremity Problem 2 General: Chief complaint: Extremity Problem,Nontraumatic Stated complaint: chills, right leg pain Time Seen by Provider: 11/10/23 12:14 History of Present Illness: 53-year-old male presents to the emergen cy room complaining of generally not family is a diabetic wound on his foot he has been seeing wound care clinic he feels like it is worsening. He recently completed a course antibiotics. Is not had any fever sweats or chills. No vomiting or diarrhea. Minimal swelling to his leg. Associated symptoms: Deny chest pain, fever(s) or rash Review of Systems 2 Const: Denies: fever(s) or chills Card: Denies: chest pain Resp: Denies: dyspnea GI: Denies: abdominal pain : Denies: dysuria, urinary frequency or urinary urgency Musc: Denies: neck pain or back pain Skin/Breast: Denies: rash PFSH ED 2 PFSH: Medical History Type 2 diabetes mellitus, without long-term current use of insulin Dyslipidemia Splenomegaly PAD (peripheral artery disease) Diabetic foot ulcer Surgical History S/P hernia repair Family History Other Cancer Diabetes Hypertension Social History Smoking and tobacco/nicotine status: current every day tobacco/nicotine user smokeless tobacco Alcohol intake: never Substance/Drug Use: never Physical Exam 2 Const: COMMON NORMALS: no acute distress GENERAL APPEARANCE: cooperative and comfortable ORIENTATION/CONSCIOUSNESS: Yes awake, Yes oriented to person, Yes oriented to place and Yes oriented to time HENMT: COMMON NORMALS: normocephalic, atraumatic and hearing grossly normal bilaterally HEAD & SCALP: normocephalic and atraumatic Resp: COMMON NORMALS: normal respiratory effort, No retractions, No use of accessory muscles and clear to auscultation bilaterally AUSCULTATION: clear to auscultation bilaterally Cardio: COMMON NORMALS: regular rate, regular rhythm and No murmurs present (Cardio) RATE: regular rate RHYTHM: regular rhythm GI: COMMON NORMALS: Soft to palpation and No hepatosplenomegaly present A USCULTATION: Yes normoactive bowel sounds PALPATION: Yes Soft to palpation, No Tenderness to palpation present (GI), No Guarding due to palpation present (GI) and Yes No hepatosplenomegaly present Extremity: OTHER: Neurovascularly right lower extremity is intact he has an open wound on the sole of the foot is has fresh granulation tissue at the bed mild chronic boggy edema no redness or inflammation no lymphatic streaking no purulent drainage no foul smell Neuro: SENSORIUM/ORIENTATION: Yes oriented to person, Yes oriented to place and Yes oriented to time Skin: COMMON NORMALS: no rashes or lesions noted GENERAL SKIN EXAM: no rashes or lesions noted Course 2 Vital Signs: Vital signs: Vital Signs Temperature 98.1 F 11/10/23 11:46 Pulse Rate 86 11/10/23 16:03 Respiratory Rate 17 11/10/23 11:46 Blood Pressure 133/82 11/10/23 16:03 Pulse Oximetry 98 11/10/23 16:03 Oxygen Delivery Me thod Room Air 11/10/23 11:46 MDM - Extremity (Nontraumatic) Medical Decision Making No leukocytosis. X-ray does not show any subcutaneous air. Continue to follow- up at wound care clinic white count is normal at this point. Did not start on antibiotics. Patient recently completed antibiotics likely will need tissue culture if they do wish to restart antibiotics. Lab Data 11/10/23 13:00 11/10/23 13:00 Radiology Impressions Foot X-Ray 11/10/23 12:06 IMPRESSION: Soft tissue swelling and ulceration great toe region, along with chronic arthritic change interphalangeal joint great toe. Findings are chronic with prior exam. No acute osseous abnormality. Ankle X-Ray 11/10/23 13:35 IMPRESSION: No fracture or acute osseous abnormality. Small-vessel arterial calcification. Tibia/Fibula X-Ray 11/10/23 13:36 IMPRESSION: No fracture or acute osseous abnormality. Arterial vascular calcification. Laboratory Results WBC 10.43 10^3/uL (3.29-11.43) 11/10/23 13:00 RBC 5.05 10^6/uL (3.85-5.65) 11/10/23 13:00 Hgb 15.70 g/dL (11.27-16.99) 11/10/23 13:00 Hct 46.4 % (37-53) 11/10/23 13:00 MCV 91.9 fl (82-101) 11/10/23 13:00 MCH 31.1 pg (27-33) 11/10/23 13:00 MCHC 33.8 g/dL (30-55) 11/10/23 13:00 RDW 12.7 % (12.1-15.1) 11/10/23 13:00 Plt Count 210 10^3/cmm (157-399) 11/10/23 13:00 MPV 10.1 fL (7.4-10.4) 11/10/23 13:00 Neut % (Auto) 71.7 % 11/10/23 13:00 Lymph % (Auto) 17.3 % 11/10/23 13:00 [place] % (Auto) 8.7 % 11/10/23 13:00 Eos % (Auto) 1.2 % 11/10/23 13:00 Baso % (Auto) 0.7 % 11/10/23 13:00 Neut # (Auto) 7.49 10^3/uL (1.8-7.7) 11/10/23 13:00 Lymph # (Auto) 1.8 10^3/uL (0.8-4.8) 11/10/23 13:00 [place] # (Auto) 0.9 10^3/uL (0.2-0.9) 11/10/23 13:00 Eos # (Auto) 0.1 10^3/uL (0.0-0.8) 11/10/23 13:00 Baso # (Auto) 0.1 10^3/uL (0.0-0.1) 11/10/23 13:00 Nucleated RBC % (auto) 0 % 11/10/23 13:00 Nucleated RBCs # 0.0 /100WBC 11/10/23 13:00 ESR 6 mm/hr (0-10) 11/10/23 13:00 Sodium 139 mmol/L (136-145) 11/10/23 13:00 Potassium 4.4 mmol/L (3.5-5.1) 11/10/23 13:00 Chloride 100 mmol/L (98-107) 11/10/23 13:00 Carbon Dioxide 30 mmol/L (22-29) H 11/10/23 13:00 Anion Gap 13.4 (5-19) 11/10/23 13:00 BUN 9 mg/dL (6-20) 11/10/23 13:00 Creatinine 0.7 mg/dL (0.7-1.2) 11/10/23 13:00 GFR Calculation 118.4 mL/min (90-130) 11/10/23 13:00 Glucose 169 mg/dL (65-115) H 11/10/23 13:00 Calculated Osmolality 291 mOsm/kg (285-295) 11/10/23 13:00 Calcium 9.5 mg/dL (8.5-10.5) 11/10/23 13:00 Total Bilirubin 0.8 mg/dL (0.15-1.2) 11/10/23 13:00 AST 13 U/L (0-40) 11/10/23 13:00 ALT 13 U/L (0-41) 11/10/23 13:00 Alkaline Phosphatase 74 U/L (40-130) 11/10/23 13:00 C-Reactive Protein 101.2 mg/L (0.0-4.9) H 11/10/23 13:00 Total Protein 8.1 g/dL (6.6-8.7) 11/10/23 13:00 Albumin 4.1 g/dL (3.5-5.2) 11/10/23 13:00 Globulin 4.0 g/dL (1.3-4.6) 11/10/23 13:00 All radiology interpretation(s) finalized by discharge Discharge Plan Discharge Patient Disposition: Home Clinical Impression: Diabetic peripheral neuropathy associated with type 2 diabetes mellitus, Chronic ulcer of left foot with fat layer exposed Condition: Stable Prescriptions: New Lyrica 75 mg capsule 75 mg PO BID Qty: 60 0RF No Action (DME) Diabetic shoes with molded inserts See Rx Instructions .Route .MEDSUPPLY Qty: 1 0RF Rx Instructions: As directed (DME) morongo boot to the left See Rx Instructions .Route .MEDSUPPLY Qty: 1 0RF Rx Instructions: As directed by SHAMA&0 (DME) FreeStyle Lite Strips Strip See Rx Instructions .ROUTE .MEDSUPPLY Qty: 100 2RF Rx Instructions: TWICE DAILY insulin glargine [Lantus Solostar U-100 Insulin] 100 unit/mL (3 mL) insulin pen 30 unit SUBCUT BID Discharge Orders: Discharge ED (Routine); Ordered 11/10/23 Ordered By: Nicolas Ng Referrals: Pablo Orona DO [Primary Care Provider] - Discharge Diet: Usual diet Discharge Activity: Resume usual activity Patient Instructions: Opioid Safety, Pain Management Activity Restrictions/Additional Instructions: Thank you for choosing [facility] for your healthcare needs today. It is very important that you follow up as instructed or that you return to the Emergency Department should you have concerns or if your condition changes or worsens in any way. You were seen today for complaints of pain in your right foot. Your white count was normal and there is not significant elevation of any of your other labs. At this point would keep your follow-up appointment with wound clinic as planned. I did give you a prescription for Lyrica 75 mg 1 tablet twice a day this can be helpful with peripheral neuropathy that can be caused by diabetes. Coding Level of Care Code ED Box Car Checker for Pito Collins
--- NOTE | 2023-11-10 15:09 | USCV_ITS ---
Willard Tran Age: 53 Gender: M : 1970 Exam Date: 11/10/2023 15:31 Ordering Phys: Nicolas Ng DO Technologist: USR Exam Location: [facility] [place] Indication: RT LE PAIN HISTORY: Lower extremity pain. PROCEDURES: Venous duplex imaging was performed in only the right lower extremity. The following venous structures were evaluated: common femoral vein, profunda vein, proximal portion of the greater saphenous vein, superficial femoral vein, and the popliteal vein. In addition, the posterior tibial and peroneal trunk were evaluated. Serial compression, augmentation maneuvers, and spectral Doppler flow evaluation were performed. FINDINGS: No evidence of DVT seen in any vessel visualized at this time. CONCLUSIONS No evidence of right lower extremity DVT. Enlarged Right groin lymph nodes nonspecifc but may be reactive largest measuring 2.3cm.. Recommend correlation with history Yadiel Del Rosario MD (Electronically Signed) Final Date: 10 November 2023 16:41 S
[2023-11-10 16:03] VITALS: BP 133/82; PULSE 86; O2SAT 98
== END 2023-11-10 16:04 | disposition home or self-care (01) ==
PROVIDERS: Emergency Provider Family Medicine; PCP Internal Medicine
DX: E11.42 Type 2 diabetes mellitus with diabetic polyneuropathy (principal); L97.512 Non-pressure chronic ulcer of other part of right foot with fat layer exposed; Z79.4 Long term (current) use of insulin; E78.5 Hyperlipidemia, unspecified; F17.220 Nicotine dependence, chewing tobacco, uncomplicated
CPT/HCPCS: 36415; 73590; 73610; 73630; 80053; 85025; 85651; 86140; 87040; 93971; 99284

== ENCOUNTER 2023-11-14 11:45 | Inpatient (IN) | payer BC, SELFPAY ==
[2023-11-14] VITALS (16 sets, daily range): BP systolic 117–172; BP diastolic 69–97; PULSE 97–102; RESP 16–18; TEMP 37.8–38.2; O2SAT 94–97; BMI 32.1
--- NOTE | 2023-11-14 12:17 | USCV_ITS ---
Willard Tran Age: 53 Gender: M : 1970 Exam Date: 11/14/2023 13:12 Ordering Phys: Zeferino Allen MD Technologist: TAJ [place]am [place] [facility] [place]ication: LE RT PAIN HISTORY: Lower extremity pain. PROCEDURES: Venous duplex imaging was performed in only the right lower extremity. The following venous structures were evaluated: common femoral vein, profunda vein, proximal portion of the greater saphenous vein, superficial femoral vein, and the popliteal vein. In addition, the posterior tibial and peroneal trunk were evaluated. Serial compression, augmentation maneuvers, and spectral Doppler flow evaluation were performed. FINDINGS: Normal 2-D Doppler and augmentation and compressibility throughout the lower extremity venous structures. Additional imaging through the proximal calf veins also reveals no thrombus. Limited evaluation of the greater saphenous vein is patent with no thrombus. CONCLUSIONS No DVT right lower extremity. Dr. Cata Pearson DO (Electronically Signed) Final Date: 14 November 2023 14:59 S
--- NOTE | 2023-11-14 12:17 | XRR_ITS ---
PROCEDURE INFORMATION: Exam: XR Right Foot Exam date and time: 11/14/2023 12:28 PM Age: 53 years old Clinical indication: Pain and condition or disease; Other: Dibetic ulcer RT big toe; Foot; Right TECHNIQUE: Imaging protocol: Radiologic exam of the right foot. Views: 3 or more views. COMPARISON: CR XR foot RT min 3V* [id number] 11/10/2023 1:42 PM FINDINGS: Bones/joints: There is hallux valgus deformities seen in the 2nd 3rd and 4th toes. There is a chronic bone deformity possibly a chronic fracture involving the great toe at the lateral aspect of the interphalangeal articulation. This finding was seen on prior examination and appears similar. Otherwise no acute bony abnormalities seen. Soft tissues: Normal. XR/XR foot RT min 3V* [id number] IMPRESSION: 1. No acute findings. 2. Hallux valgus deformity 2nd 3rd and 4th toe 3. Chronic bone deformity great toe
--- NOTE | 2023-11-14 12:17 | XRR_ITS ---
PROCEDURE INFORMATION: Exam: XR Chest Exam date and time: 11/14/2023 12:26 PM Age: 53 years old Clinical indication: Cough TECHNIQUE: Imaging protocol: Radiologic exam of the chest. Views: 1 view. COMPARISON: CR XR chest 1V [id number] 07/21/2023 2:51 PM FINDINGS: Lungs: Unremarkable. No consolidation. Pleural spaces: Unremarkable. No pleural effusion. No pneumothorax. Heart/Mediastinum: Unremarkable. No cardiomegaly. Bones/joints: Unremarkable. No interval change compared to prior XR/XR chest 1V portable [id number] IMPRESSION: No acute findings.
--- NOTE | 2023-11-14 12:17 | USR_ITS ---
PROCEDURE INFORMATION: Exam: US Duplex Right Lower Extremity Arteries Or Arterial Bypass Grafts Exam date and time: 11/14/2023 1:30 PM Age: 53 years old Clinical indication: Pain; Leg, lower; Right TECHNIQUE: Imaging protocol: Right Real-time duplex scan of the arteries or arterial bypass grafts of the right lower extremity with 2-D vora scale, color Doppler flow and spectral waveform analysis. Images documented and saved. COMPARISON: MR foot RT wo/w con [id number] 06/27/2023 2:31 PM FINDINGS: Right common femoral artery: No occlusion or significant stenosis. Normal waveform. No pseudoaneurysm in the inguinal region. Right superficial femoral artery: No occlusion or significant stenosis. Normal waveform. Right popliteal artery: No occlusion or significant stenosis. Normal waveform. Right calf/foot arteries: No occlusion or significant stenosis in the visualized arteries. Normal waveforms. Dorsalis pedis artery is patent. Soft tissues: No hematoma or collection. US/[place] [id number] IMPRESSION: No stenosis or occlusion.
--- NOTE | 2023-11-14 12:31 | ED_ITS ---
HPI - Extremity Problem 2 General: Chief complaint: Extremity Problem,Nontraumatic Stated complaint: right foot pain Time Seen by Provider: 11/14/23 12:13 Source: patient Mode of arrival: ambulatory Limitations: no limitations History of Present Illness: 53-year-old male who has a history of di abetes he has been treated for diabetic foot ulcer to the right foot he states he has been on antibiotics He currently he states he been having some increasing pain in that right leg he is also had some redness he is febrile here today of 100.7 he states he had a mild cough as well. He does follow with wound care. PFS ED 2 PFSH: Medical History Type 2 diabetes mellitus, without long-term current use of insulin Dyslipidemia Splenomegaly PAD (peripheral artery disease) Diabetic foot ulcer Surgical History S/P hernia repair Family History Other Cancer Diabetes Hypertension Social History Smoking and tobacco/nicotine status: current every day tobacco/nicotine user smokeless tobacco Alcohol intake: never Substance/Drug Use: never Course 2 Vital Signs: Vital signs: Vital Signs Temperature 100.7 F H 11/14/23 12:12 Pulse Rate 97 11/14/23 12:12 Respiratory Rate 18 11/14/23 12:12 Blood Pressure 142/80 11/14/23 14:00 Pulse Oximetry 94 11/14/23 14:00 Oxygen Delivery Me thod Room Air 11/14/23 12:12 MDM - Extremity (Nontraumatic) Medical Decision Making Patient presents here with diabetic foot ulcer does have a cellulitis he is febrile here as well did start IV antibiotics I spoke to hospitalist along with [employer] and will admit at this time. Medical Records I reviewed the patient's medical records. Lab Data I reviewed the patient's lab results. 11/14/23 12:34 11/14/23 12:37 Radiology Impressions Chest X-Ray 11/14/23 12:17 IMPRESSION: No acute findings. Foot X-Ray 11/14/23 12:17 IMPRESSION: 1. No acute findings. 2. Hallux valgus deformity 2nd 3rd and 4th toe 3. Chronic bone deformity great toe Laboratory Results WBC 13.37 10^3/uL (3.29-11.43) H 11/14/23 12:34 RBC 5.09 10^6/uL (3.85-5.65) 11/14/23 12:34 Hgb 15.40 g/dL (11.27-16.99) 11/14/23 12:34 Hct 45.8 % (37-53) 11/14/23 12:34 MCV 90.0 fl (82-101) 11/14/23 12:34 MCH 30.3 pg (27-33) 11/14/23 12:34 MCHC 33.6 g/dL (30-55) 11/14/23 12:34 RDW 12.0 % (12.1-15.1) L 11/14/23 12:34 Plt Count 238 10^3/cmm (157-399) 11/14/23 12:34 MPV 9.9 fL (7.4-10.4) 11/14/23 12:34 Neut % (Auto) 80.7 % 11/14/23 12:34 Lymph % (Auto) 9.1 % 11/14/23 12:34 [place] % (Auto) 7.6 % 11/14/23 12:34 Eos % (Auto) 1.3 % 11/14/23 12:34 Baso % (Auto) 0.6 % 11/14/23 12:34 Neut # (Auto) 10.79 10^3/uL (1.8-7.7) H 11/14/23 12:34 Lymph # (Auto) 1.2 10^3/uL (0.8-4.8) 11/14/23 12:34 [place]ley # (Auto) 1.0 10^3/uL (0.2-0.9) H 11/14/23 12:34 Eos # (Auto) 0.2 10^3/uL (0.0-0.8) 11/14/23 12:34 Baso # (Auto) 0.1 10^3/uL (0.0-0.1) 11/14/23 12:34 Nucleated RBC % (auto) 0 % 11/14/23 12:34 Nucleated RBCs # 0.0 /100WBC 11/14/23 12:34 ESR 20 mm/hr (0-10) H 11/14/23 12:34 Sodium 134 mmol/L (136-145) L 11/14/23 12:37 Potassium 4.4 mmol/L (3.5-5.1) 11/14/23 12:37 Chloride 94 mmol/L (98-107) L 11/14/23 12:37 Carbon Dioxide 27 mmol/L (22-29) 11/14/23 12:37 Anion Gap 17.4 (5-19) 11/14/23 12:37 BUN 11 mg/dL (6-20) 11/14/23 12:37 Creatinine 0.8 mg/dL (0.7-1.2) 11/14/23 12:37 GFR Calculation 101.5 mL/min (90-130) 11/14/23 12:37 Glucose 243 mg/dL (65-115) H 11/14/23 12:37 Calculated Osmolality 285 mOsm/kg (285-295) 11/14/23 12:37 Lactic Acid 1.1 mmol/L (0.5-2.2) 11/14/23 12:37 Calcium 9.8 mg/dL (8.5-10.5) 11/14/23 12:37 Total Bilirubin 1.2 mg/dL (0.15-1.2) 11/14/23 12:37 AST 19 U/L (0-40) 11/14/23 12:37 ALT 27 U/L (0-41) 11/14/23 12:37 Alkaline Phosphatase 117 U/L (40-130) 11/14/23 12:37 C-Reactive Protein 231.4 mg/L (0.0-4.9) H 11/14/23 12:37 Total Protein 9.4 g/dL (6.6-8.7) H 11/14/23 12:37 Albumin 4.2 g/dL (3.5-5.2) 11/14/23 12:37 Globulin 5.2 g/dL (1.3-4.6) H 11/14/23 12:37 SARS-CoV-2 Ag (Rapid) negative (Negative) 11/14/23 13:19 All radiology interpretation(s) finalized by discharge Discharge Plan Discharge Patient Disposition: Admitted As Inpatient Clinical Impression: Type 2 diabetes mellitus with foot ulcer, Cellulitis Condition: Stable Prescriptions: No Action (DME) Diabetic shoes with molded inserts See Rx Instructions .Route .MEDSUPPLY Qty: 1 0RF Rx Instructions: As directed (DME) [place] boot to the left See Rx Instructions .Route .MEDSUPPLY Qty: 1 0RF Rx Instructions: As directed by [employer] (DME) FreeStyle Lite Strips Strip See Rx Instructions .ROUTE .MEDSUPPLY Qty: 100 2RF Rx Instructions: TWICE DAILY insulin glargine [Lantus Solostar U-100 Insulin] 100 unit/mL (3 mL) insulin pen 30 unit SUBCUT BID Qty: 15 3RF pregabalin [Lyrica] 75 mg capsule 75 mg PO BID Qty: 60 0RF Referrals: Pablo Orona DO [Primary Care Provider] - Coding Level of Care Code ED [employer] [facility] Director for [facility]
[2023-11-14] MEDS: acetaminophen 500 mg Tablet 1000 MG PO (12:42)
[2023-11-14] MEDS: sodium chloride 0.9% 1,000 ML 999 ML IV (12:42)
[2023-11-14 12:52] LABS: Basophils # 0.1 10^3/uL (0.0-0.1); Basophils % 0.6 %; Eosinophils # 0.2 10^3/uL (0.0-0.8); Eosinophils % 1.3 %; Hematocrit 45.8 % (37-53); Lymphocytes # 1.2 10^3/uL (0.8-4.8); Lymphocytes % 9.1 %; Mean Corpuscular HGB Conc 33.6 g/dL (30-55); Mean Corpuscular Hemoglobin 30.3 pg (27-33); Mean Platelet Volume 9.9 fL (7.4-10.4); Monocytes % 7.6 %; Neutrophils # 10.79 10^3/uL (1.8-7.7); Neutrophils % 80.7 %; Nucleated Red Blood Cells % 0 %; Platelet Count 238 10^3/cmm (157-399); Red Blood Count 5.09 10^6/uL (3.85-5.65); White Blood Count 13.37 10^3/uL (3.29-11.43)
[2023-11-14 13:01] LABS: Erythrocyte Sedimentation Rate 20 mm/hr (0-10)
[2023-11-14 13:08] LABS: Lactic Sepsis W/Reflex 1.1 mmol/L (0.5-2.2)
[2023-11-14 13:09] LABS: Alanine Aminotransferase 27 U/L (0-41); Albumin Level 4.2 g/dL (3.5-5.2); Alkaline Phosphatase 117 U/L (40-130); Anion Gap 17.4 (5-19); Aspartate Amino Transferase 19 U/L (0-40); Blood Urea Nitrogen 11 mg/dL (6-20); C Reactive Protein 231.4 mg/L (0.0-4.9); Calcium 9.8 mg/dL (8.5-10.5); Carbon Dioxide 27 mmol/L (22-29); Chloride 94 mmol/L (98-107); Creatinine Clr Calc Pharmacy 144.6488; Globulin 5.2 g/dL (1.3-4.6); Glomerular Filtration Rate 101.5 mL/min (90-130); Glucose 243 mg/dL (65-115); Osmolality Calculated 285 mOsm/kg (285-295); Potassium 4.4 mmol/L (3.5-5.1); Sodium 134 mmol/L (136-145); Total Bilirubin 1.2 mg/dL (0.15-1.2); Total Protein 9.4 g/dL (6.6-8.7)
[2023-11-14 13:49] LABS: SARS Covid-2 Antigen negative (Negative)
[2023-11-14] MEDS: vancomycin 1,000 MG in sodium chloride 0.9% 250 ML 250 MG IV (14:21)
--- NOTE | 2023-11-14 16:11 | P.CONIM_ITS ---
Providers/Reason For Consult 2 Consulting Physician/Specialty*: Dr. Nikunj Tejada, Samanta.P.M./podiatry Reason for Consult*: Right foot abscess Primary Care Provider: Pablo Orona DO History of Present Illness History of Present Illness Willard Tran is a 53 year old male with history of type 2 diabetes, peripheral neuropathy and chronic ulceration to the plantar aspect of the right foot. Patient presents emergency department today accompanied by family with concern of worsening right foot infection. Patient states that over the course of the past couple of weeks he feels that the wound has been worsening. He presented to the emergency department on 11/10/2023 where workup revealed chronic ulceration, stable. Subsequently, patient went to his wound care appointment today 11/14/2023. Upon evaluation in the wound care clinic the wound was noted to have digressed with significant surrounding erythema and proximal leg tenderness. Patient was sent to the emergency department for further workup and evaluation and admission for IV antibiotic therapy and treatment. Patient also states that he has had a dry nonproductive cough over the course of the past few days. He does endorse general feelings of malaise. Denies any fever, chills, nausea, vomiting. Podiatry was consulted to evaluate patient and provide recommendations for treatment. Review of Systems 2 General: Reports: 10 or more systems reviewed and unremarkable except in HPI and below Const: Denies: fever(s), chills, body aches or change in appetite Eyes: Denies: change in vision or blurry vision Card: Denies: chest pain, palpitations or irregular heart rhythm Resp: Denies: dyspnea GI: Denies: abdominal pain, nausea, vomiting or diarrhea Musc: Reports: joint stiffness Skin/Breast: Reports: non-healing lesions and lesions Neuro: Reports: numbness in extremities Medications/Allergies Home Medications Medication Instructions Recorded Confirmed Last Taken Type blood sugar diagnostic (FreeStyle #100 ea 11/16/19 11/14/23 Unknown Rx Lite Strips) Diabetic shoes with molded inserts #1 ea 03/18/20 11/14/23 Unknown Rx [place] boot to the left #1 ea 06/11/22 11/14/23 Unknown Rx pregabalin 75 mg capsule (Lyrica) 75 mg PO BID #60 caps 11/10/23 11/14/23 11/13/23 Rx insulin glargine 100 unit/mL (3 30 unit (0.3 mL) SUBCUT BID #15 mL 11/14/23 11/14/23 11/13/23 Rx mL) subcutaneous pen (Lantus Solostar U-100 Insulin) Allergies Allergy/AdvReac Type Severity Reaction Status Date / Time No Known Allergies Allergy Verified 06/03/23 13:05 PFSH Acute 2 PFSH: Medical History (Updated 11/14/23 @ 16:29 by Nikunj Tejada DPM) Type 2 diabetes mellitus, without long-term current use of insulin Dyslipidemia Splenomegaly PAD (peripheral artery disease) Diabetic foot ulcer Surgical History S/P hernia repair Family History Other Cancer Diabetes Hypertension Social History Smoking and tobacco/nicotine status: current every day tobacco/nicotine user smokeless tobacco Alcohol intake: never Substance/Drug Use: never Vitals/I&O/Wt Last Vital Signs Temp 100.0 F H 11/14/23 15:10 Pulse 97 11/14/23 12:12 Resp 18 11/14/23 12:12 BP 152/85 11/14/23 15:00 Pulse Ox 97 11/14/23 15:00 O2 Del Method Room Air 11/14/23 12:12 Weight last 48 hrs Weight 250 lb Physical Exam 2 Narrative: BELOW IS A FOCUSED LOWER EXTREMITY EXAM GENERAL: A&O x 3 VASCULAR: DP/PT pulses diminished with delayed capillary refill. Biphasic waveforms of right DP/PT via hand-held Doppler DERMATOLOGICAL: Wound # 1 Location: Plantar right hallux Size: 2.5 x 2.2 x 0.4 cm Undermining: Negative undermining Tracking: Positive tracking at 5 o'clock position towards the medial first metatarsophalangeal joint capsule with maximum depth of 2.8 cm Probe to bone: Negative Borders: Hyperkeratotic Base: Mixed fibrogranular 50:50 with flexor hallucis longus tendon exposed Drainage: Negative Malodor: Negative MUSCULOSKELETAL: Focal tenderness with palpation of medial first metatarsophalangeal joint right foot overlying area of suspected abscess. NEUROLOGICAL: Neurological sensation to the affected foot and ankle is diminished through L4-S1 dermatomes via 10g SWMF, diminished sensation extends proximally to the level of the ankle IMAGING: Three-view x-rays of right foot nonweightbearing taken in the emergency department today (11/14/2023) show visible atherosclerosis of right lower extremity arteries. Large soft tissue defect plantar aspect of right hallux. Increase soft tissue density surrounding first metatarsophalangeal joint. No subcutaneous emphysema visualized. No cortical disruption Data 11/14/23 12:34 11/14/23 12:37 Micro: Microbiology 11/14/23 12:42 Blood Culture - Preliminary Blood SPECIMEN COLLECTED 11/14/23 12:37 Blood Culture - Preliminary Blood SPECIMEN COLLECTED A&P Assessment and plan (1) Ulcer of right foot with fat layer exposed: (2) Abscess of right foot: (3) Diabetic peripheral neuropathy associated with type 2 diabetes mellitus: (4) PAD (peripheral artery disease): Plan -Chronic ulceration right foot with associated abscess -Labs and vitals reviewed -WBC 13.37 -ESR 20 -CRP 231.4 -HR 97 -RR 18 -Tmax 100.7 -Cultures: Right foot wound cultures obtained in the emergency department, pending -Abx Vanco/Zosyn -Diet: N.p.o. at midnight for procedure 11/15/2023 -Plan for incision bone cortex right foot on 11/15/2023 with washout -Stat MRI right foot ordered -Arterial Dopplers ordered -Pain Mgmt: Per primary team -Weight bearing: Weightbearing to right foot for transfers only -Dressings: Betadine wet-to-dry consisting of 4 x 4 gauze, Kerlix and Raciel -Continue current Abx therapy until ID and Sensitivity results -Trend labs -Discharge plan: To be determined -Podiatry will continue to round on patient daily and provide recommendations Consult Attestations 2 Medical Necessity Statement: Chronic right foot wound necessitating or debridement and IV antibiotic therapy Coding Level of Care Code Acute Code for [facility] Fwd Diagnoses Ulcer of right foot with fat layer exposed L97.512 Abscess of right foot L02.611 Diabetic peripheral neuropathy associated with type 2 diabetes mellitus E11.42 PAD (peripheral artery disease) I73.9
--- NOTE | 2023-11-14 16:44 | USR_ITS ---
PROCEDURE INFORMATION: Exam: US Duplex Right Lower Extremity Arteries Or Arterial Bypass Grafts Exam date and time: 11/14/2023 7:09 PM Age: 53 years old Clinical indication: Leg, upper and leg, lower; Patient HX: Non-healing diabetic right first toe ulcer x 3 months, presenting in er with fever 100.7f and generalized right leg pain. ; Additional info: Pad TECHNIQUE: Imaging protocol: Right Real-time duplex scan of the arteries or arterial bypass grafts of the right lower extremity with 2-D vora scale, color Doppler flow and spectral waveform analysis. Images documented and saved. COMPARISON: [place] [id number] 11/14/2023 1:30 PM FINDINGS: Right common femoral artery: No occlusion or significant stenosis. Normal waveform. No pseudoaneurysm in the inguinal region. Right superficial femoral artery: No occlusion or significant stenosis. Triphasic flow within the mid aspect of the right superficial femoral artery. The proximal and distal aspects abnormal waveform.. Right popliteal artery: No occlusion or significant stenosis. Normal waveform. Right calf/foot arteries: No occlusion or significant stenosis in the visualized arteries. Normal waveforms. Dorsalis pedis artery is patent. Soft tissues: No hematoma or collection. US/[place] [id number] IMPRESSION: Triphasic flow within the mid aspect of the right superficial femoral artery. The anterior tibial artery and right peroneal artery were not attempted. The distal posterior tibial artery and dorsalis pedis artery pressures are greater than 220.
[2023-11-14] MEDS: sodium chloride 0.9% 1,000 ML 75 ML IV (17:18)
[2023-11-14] MEDS: enoxaparin 40 mg/0.4 mL Syringe SUBCUT (17:18)
[2023-11-14 17:23] LABS: Glucose Point of Care 222 mg/dL (70-110)
--- NOTE | 2023-11-14 17:52 | P.HP_ITS ---
Providers/Chief Complaint 2 Admitting Physician: Marifer Lal MD Primary Care Provider: Pablo Orona DO Chief Complaint: right foot pain, ref dr lopez to Dr. franz History of Present Illness Willard Tran is a 53 year old male with history of diabetes mellitus, peripheral neuropathy, currently undergoing treatment at the wound care clinic for an open chronic diabetic ulcer of the right first metatarsal. X-ray of the foot taken in September 2023 was negative for any underlying osteomyelitis. There was extensive arterial calcifications. There had been some regression of the wound starting in late September, superficial wound culture showed polymicrobial growth of E. coli Pseudomonas and group B strep and he received treatment with levofloxacin clindamycin and metronidazole for 10 days. His wound improved initially but then started to regress again. He received a course of Bactrim DS as outpatient. He has been receiving wet-to-dry dressing changes twice daily. By November 06 he started to note drainage from the wound. By November 13 this progressed to now exposure of the flexor tendon. There was additionally periwound erythema and there was increased tenderness. He was referred to come into the emergency room today due to these changes. He is febrile today with a Tmax of 100 Fahrenheit. He has leukocytosis of 13,000. He was evaluated by podiatry in the ER and there is concern for underlying abscess of the foot. Patient is planned to undergo an MRI later today and OR tomorrow. Review of Systems 2 General: Reports: 10 or more systems reviewed and unremarkable except in HPI and below Const: Denies: fever(s), chills or body aches Eyes: Denies: change in vision, blurry vision or photophobia ENMT: Reports: hoarseness; Denies: throat pain, enlarged tonsils, odynophagia or nasal congestion Card: Denies: chest pain, palpitations, irregular heart rhythm, edema, swelling of feet/ankles, lightheadedness, pre-syncope, dyspnea on exertion or orthopnea Resp: Denies: dyspnea, productive cough, non-productive cough, wheezing, stridor, pain on inspiration, change in phlegm color, hemoptysis or chest congestion GI: Denies: abdominal pain, nausea, vomiting, hematemesis, coffee ground emesis, dysphagia, heartburn, diarrhea, constipation, GI cramping, change in stool character, hematochezia or melena : Denies: flank pain, dysuria, urinary frequency, urinary urgency, urinary hesitancy or hematuria Musc: Denies: neck pain, back pain, extremity pain, joint swelling, joint warmth or deformity Neuro: Denies: headache(s), numbness in extremities, weakness in extremities, sensory changes, difficulty walking, frequent falls, dizziness, vertigo, behavioral changes, Slurred speech present or seizure-like activity Psych: Denies: anxiety, depression, suicidal ideation or homicidal ideation Endo: Denies: polyuria, polydipsia, tired all the time, cold intolerance or hot flashes Naresh/Lymph: Denies: easy bruising or easy bleeding Medications/Allergies Home Medications Medication Instructions Recorded Confirmed Last Taken Type blood sugar diagnostic (FreeStyle #100 ea 11/16/19 11/14/23 Unknown Rx Lite Strips) Diabetic shoes with molded inserts #1 ea 03/18/20 11/14/23 Unknown Rx [place] boot to the left #1 ea 06/11/22 11/14/23 Unknown Rx pregabalin 75 mg capsule (Lyrica) 75 mg PO BID #60 caps 11/10/23 11/14/23 11/13/23 Rx insulin glargine 100 unit/mL (3 30 unit (0.3 mL) SUBCUT BID #15 mL 11/14/23 11/14/23 11/13/23 Rx mL) subcutaneous pen (Lantus Solostar U-100 Insulin) Allergies Allergy/AdvReac Type Severity Reaction Status Date / Time No Known Allergies Allergy Verified 06/03/23 13:05 PFSH Acute 2 PFSH: Medical History (Updated 11/14/23 @ 16:29 by Nikunj Tejada DPM) Type 2 diabetes mellitus, without long-term current use of insulin Dyslipidemia Splenomegaly PAD (peripheral artery disease) Diabetic foot ulcer Surgical History S/P hernia repair Family History Other Cancer Diabetes Hypertension Social History Smoking and tobacco/nicotine status: current every day tobacco/nicotine user smokeless tobacco Alcohol intake: never Substance/Drug Use: never Vitals/I&O/Wt Last Vital Signs Temp 100.0 F H 11/14/23 15:10 Pulse 97 11/14/23 12:12 Resp 18 11/14/23 12:12 BP 149/97 11/14/23 17:30 Pulse Ox 95 11/14/23 16:30 O2 Del Method Room Air 11/14/23 12:12 Weight last 48 hrs Weight 113.398 kg Physical Exam 2 Narrative: General: No acute distress, AO x3 HEENT: PERRLA, pupils bilaterally equal and reactive, pallors not present Chest: Normal vesicular breath sounds, no added sounds, equal good air entry bilaterally CVS: S1-S2 regular, no murmurs, no tachycardia, no gallops, no rubs Abdomen: Soft, nontender, no organomegaly, bowel sounds present Neuro: No focal deficits, no facial deformity, AO x3, power 5/5 in all limbs Extremities: Refer to podiatry note for changes related to foot. Data 11/14/23 12:34 11/14/23 12:37 Micro: Microbiology 11/14/23 12:42 Blood Culture - Preliminary Blood SPECIMEN COLLECTED 11/14/23 12:37 Blood Culture - Preliminary Blood SPECIMEN COLLECTED Other data: Radiology Impressions Chest X-Ray 11/14/23 12:17 IMPRESSION: No acute findings. Duplex Scan Lower Extremity Artery 11/14/23 12:17 IMPRESSION: No stenosis or occlusion. Foot X-Ray 11/14/23 12:17 IMPRESSION: 1. No acute findings. 2. Hallux valgus deformity 2nd 3rd and 4th toe 3. Chronic bone deformity great toe Laboratory Results WBC 13.37 10^3/uL (3.29-11.43) H 11/14/23 12:34 RBC 5.09 10^6/uL (3.85-5.65) 11/14/23 12:34 Hgb 15.40 g/dL (11.27-16.99) 11/14/23 12:34 Hct 45.8 % (37-53) 11/14/23 12:34 MCV 90.0 fl (82-101) 11/14/23 12:34 MCH 30.3 pg (27-33) 11/14/23 12:34 MCHC 33.6 g/dL (30-55) 11/14/23 12:34 RDW 12.0 % (12.1-15.1) L 11/14/23 12:34 Plt Count 238 10^3/cmm (157-399) 11/14/23 12:34 MPV 9.9 fL (7.4-10.4) 11/14/23 12:34 Neut % (Auto) 80.7 % 11/14/23 12:34 Lymph % (Auto) 9.1 % 11/14/23 12:34 [place] % (Auto) 7.6 % 11/14/23 12:34 Eos % (Auto) 1.3 % 11/14/23 12:34 Baso % (Auto) 0.6 % 11/14/23 12:34 Neut # (Auto) 10.79 10^3/uL (1.8-7.7) H 11/14/23 12:34 Lymph # (Auto) 1.2 10^3/uL (0.8-4.8) 11/14/23 12:34 [place] # (Auto) 1.0 10^3/uL (0.2-0.9) H 11/14/23 12:34 Eos # (Auto) 0.2 10^3/uL (0.0-0.8) 11/14/23 12:34 Baso # (Auto) 0.1 10^3/uL (0.0-0.1) 11/14/23 12:34 Nucleated RBC % (auto) 0 % 11/14/23 12:34 Nucleated RBCs # 0.0 /100WBC 11/14/23 12:34 ESR 20 mm/hr (0-10) H 11/14/23 12:34 Sodium 134 mmol/L (136-145) L 11/14/23 12:37 Potassium 4.4 mmol/L (3.5-5.1) 11/14/23 12:37 Chloride 94 mmol/L (98-107) L 11/14/23 12:37 Carbon Dioxide 27 mmol/L (22-29) 11/14/23 12:37 Anion Gap 17.4 (5-19) 11/14/23 12:37 BUN 11 mg/dL (6-20) 11/14/23 12:37 Creatinine 0.8 mg/dL (0.7-1.2) 11/14/23 12:37 GFR Calculation 101.5 mL/min (90-130) 11/14/23 12:37 Glucose 243 mg/dL (65-115) H 11/14/23 12:37 POC Glucose 222 mg/dL (70-110) H 11/14/23 17:21 Calculated Osmolality 285 mOsm/kg (285-295) 11/14/23 12:37 Lactic Acid 1.1 mmol/L (0.5-2.2) 11/14/23 12:37 Calcium 9.8 mg/dL (8.5-10.5) 11/14/23 12:37 Total Bilirubin 1.2 mg/dL (0.15-1.2) 11/14/23 12:37 AST 19 U/L (0-40) 11/14/23 12:37 ALT 27 U/L (0-41) 11/14/23 12:37 Alkaline Phosphatase 117 U/L (40-130) 11/14/23 12:37 C-Reactive Protein 231.4 mg/L (0.0-4.9) H 11/14/23 12:37 Total Protein 9.4 g/dL (6.6-8.7) H 11/14/23 12:37 Albumin 4.2 g/dL (3.5-5.2) 11/14/23 12:37 Globulin 5.2 g/dL (1.3-4.6) H 11/14/23 12:37 SARS-CoV-2 Ag (Rapid) negative (Negative) 11/14/23 13:19 A&P Assessment and plan (1) Abscess of right foot: (2) Cellulitis: Qualifiers: Laterality: right Site of cellulitis: extremity Site of cellulitis of extremity: lower extremity Qualified Code(s): L03.115 - Cellulitis of right lower limb (3) Diabetic foot ulcers: (4) Diabetic peripheral neuropathy associated with type 2 diabetes mellitus: Plan 53-year-old male with known diabetes mellitus, peripheral neuropathy related to diabetes, presenting with a worsening diabetic foot ulcer progressing into cellulitis and suspicion for underlying abscess. He has leukocytosis, he is febrile. He has failed recent multiple lines of oral antibiotic therapy admit patient to [facility] Blood cultures taken in the emergency room He has received vancomycin empirically, additionally add piperacillin/tazobactam for empiric coverage Vascular studies as noted above, no gross signs of obstruction or occlusion. Plan for an MRI later this afternoon to assess for underlying abscess and osteomyelitis. Plan for or debridement tomorrow To tailor antibiotic therapy based on OR cultures when available. Insulin sliding scale for diabetes mellitus N.p.o. after midnight for likely or intervention tomorrow DVT prophylaxis: Lovenox 40 Full code Attestations 2 Medical Necessity Statement*: Anticipate greater than 2 midnight stay for over debridement of right foot abscess, failure of outpatient oral antibiotics, need for IV antibiotics currently. Coding Level of Care Code Acute Code for [facility] Fwd High MDM includes number and complexity of problems actively addressed during encounter, amount and/or complexity of data reviewed/ordered and described risk of complication, morbidity or mortality of management as documented Diagnoses Abscess of right foot L02.611 Cellulitis L03.115 Laterality: right Site of cellulitis: extremity Site of cellulitis of extremity: lower extremity Diabetic foot ulcers E11.621; L97.509 Diabetic peripheral neuropathy associated with type 2 diabetes mellitus E11.42
[2023-11-14] MEDS: pregabalin 75 mg Capsule PO (20:26)
[2023-11-14] MEDS: piperacillin-tazobactam 3.375 GM in sodium chloride 0.9% (plus) 50 ML IV (20:26)
[2023-11-14 20:56] LABS: Glucose Point of Care 241 mg/dL (70-110)
[2023-11-14] MEDS: insulin lispro 100 unit/1 mL SUBCUT (21:14)
[2023-11-15] VITALS (22 sets, daily range): BP systolic 97–172; BP diastolic 62–99; PULSE 81–106; RESP 12–22; TEMP 36.1–39.7; O2SAT 91–96
[2023-11-15] MEDS: acetaminophen 325 mg Tablet 650 MG PO ×2 (00:31→19:47)
[2023-11-15] MEDS: vancomycin 1,750 MG/350 ML PIGGYBACK 233.33 MG IV (02:15)
[2023-11-15] MEDS: piperacillin-tazobactam 3.375 GM in sodium chloride 0.9% (plus) 50 ML IV ×3 (04:47→19:46)
[2023-11-15] MEDS: sodium chloride 0.9% 1,000 ML 75 ML IV (06:25)
[2023-11-15 06:30] LABS: Glucose Point of Care 177 mg/dL (70-110)
[2023-11-15 06:45] LABS: Basophils # 0.1 10^3/uL (0.0-0.1); Basophils % 0.7 %; Eosinophils # 0.2 10^3/uL (0.0-0.8); Eosinophils % 1.6 %; Hematocrit 38.7 % (37-53); Lymphocytes # 1.4 10^3/uL (0.8-4.8); Lymphocytes % 12.6 %; Mean Corpuscular HGB Conc 33.3 g/dL (30-55); Mean Corpuscular Hemoglobin 30.2 pg (27-33); Mean Corpuscular Volume 90.6 fl (82-101); Mean Platelet Volume 9.9 fL (7.4-10.4); Monocytes # 1.1 10^3/uL (0.2-0.9); Monocytes % 9.3 %; Neutrophils # 8.46 10^3/uL (1.8-7.7); Neutrophils % 75.1 %; Nucleated Red Blood Cells % 0 %; Platelet Count 209 10^3/cmm (157-399); Red Blood Count 4.27 10^6/uL (3.85-5.65); White Blood Count 11.27 10^3/uL (3.29-11.43)
[2023-11-15 07:07] LABS: Alanine Aminotransferase 25 U/L (0-41); Albumin Level 3.4 g/dL (3.5-5.2); Alkaline Phosphatase 99 U/L (40-130); Aspartate Amino Transferase 17 U/L (0-40); Blood Urea Nitrogen 10 mg/dL (6-20); Calcium 8.7 mg/dL (8.5-10.5); Carbon Dioxide 25 mmol/L (22-29); Chloride 99 mmol/L (98-107); Creatinine Clr Calc Pharmacy 164.3309; Globulin 4.2 g/dL (1.3-4.6); Glomerular Filtration Rate 118.4 mL/min (90-130); Glucose 191 mg/dL (65-115); Osmolality Calculated 284 mOsm/kg (285-295); Sodium 135 mmol/L (136-145); Total Bilirubin 1.1 mg/dL (0.15-1.2); Total Protein 7.6 g/dL (6.6-8.7)
--- NOTE | 2023-11-15 07:48 | P.PN_ITS ---
Subjective 2 Subjective: Patient seen at bedside this morning. Resting comfortably. Spoke with family member. No overnight events. White count trending down. MRI has not been performed yet. Arterial Dopplers showed normal waveforms to right lower extremity. Vitals/I&O/Wt Last Vital Signs Temp 99.7 F H 11/15/23 04:00 Pulse 87 11/15/23 06:00 Resp 22 H 11/15/23 04:00 BP 142/79 11/15/23 04:00 Pulse Ox 91 11/15/23 04:00 O2 Del Method Room Air 11/14/23 22:00 11/14/23 11/15/23 11/15/23 22:59 06:59 14:59 Intake Total 1710 / 1710 1383.75 / 3093.75 Balance 1710 / 1710 1383.75 / 3093.75 Weight last 48 hrs Weight 246 lb 14.4 oz Weight 250 lb Physical Exam 2 Narrative: BELOW IS A FOCUSED LOWER EXTREMITY EXAM GENERAL: A&O x 3 VASCULAR: DP/PT pulses diminished with delayed capillary refill. Biphasic waveforms of right DP/PT via hand-held Doppler DERMATOLOGICAL: Wound # 1 Location: Plantar right hallux Size: 2.5 x 2.2 x 0.4 cm Undermining: Negative undermining Tracking: Positive tracking at 5 o'clock position towards the medial first metatarsophalangeal joint capsule with maximum depth of 2.8 cm Probe to bone: Negative Borders: Hyperkeratotic Base: Mixed fibrogranular 50:50 with flexor hallucis longus tendon exposed Drainage: Negative Malodor: Negative MUSCULOSKELETAL: Focal tenderness with palpation of medial first metatarsophalangeal joint right foot overlying area of suspected abscess. NEUROLOGICAL: Neurological sensation to the affected foot and ankle is diminished through L4-S1 dermatomes via 10g SWMF, diminished sensation extends proximally to the level of the ankle IMAGING: Three-view x-rays of right foot nonweightbearing taken in the emergency department today (11/14/2023) show visible atherosclerosis of right lower extremity arteries. Large soft tissue defect plantar aspect of right hallux. Increase soft tissue density surrounding first metatarsophalangeal joint. No subcutaneous emphysema visualized. No cortical disruption Data 11/15/23 06:27 11/15/23 06:27 Micro: Microbiology 11/14/23 12:42 Blood Culture - Preliminary Blood SPECIMEN COLLECTED 11/14/23 12:37 Blood Culture - Preliminary Blood SPECIMEN COLLECTED A&P Assessment and plan (1) Ulcer of right foot with fat layer exposed: (2) Abscess of right foot: (3) Diabetic peripheral neuropathy associated with type 2 diabetes mellitus: (4) PAD (peripheral artery disease): Plan -Chronic ulceration right foot with associated abscess -Labs and vitals reviewed -WBC 13.37--> 11.27 -ESR 20 -CRP 231.4 -HR 97 -RR 18 -Tmax 100.7 -Cultures: Right foot wound cultures obtained in the emergency department, pending -Abx Vanco/Zosyn -Diet: N.p.o. at midnight for procedure 11/15/2023 -Plan for incision bone cortex right foot today 11/15/2023 with washout -Stat MRI right foot ordered--we will proceed with surgery even if MRI has not been performed in time -Arterial Dopplers ordered -Pain Mgmt: Per primary team -Weight bearing: Weightbearing to right foot for transfers only -Dressings: Betadine wet-to-dry consisting of 4 x 4 gauze, Kerlix and Raciel -Continue current Abx therapy until ID and Sensitivity results -Trend labs -Discharge plan: To be determined. Will provide further recommendations based on intraoperative findings. Attestations 2 Medical Necessity Statement*: Right foot abscess. Undergoing right foot surgery today 11/15/2023. Coding Level of Care Code Acute Code for [facility] Diagnoses Ulcer of right foot with fat layer exposed L97.512 Abscess of right foot L02.611 Diabetic peripheral neuropathy associated with type 2 diabetes mellitus E11.42 PAD (peripheral artery disease) I73.9
--- NOTE | 2023-11-15 09:11 | PC.CHAP ---
Pastoral Care Encounter/Spiritual Assessment Type of Contact [] Declined dye stand loader visit [] Patient/Family/Request visit [] Outpatient visit [] Follow-up visit [] Physician referral [] Code/Alert [x] Routine visit [] Staff referral [] Actively dying [x] Patient sleeping [x] Family support [] [] Out of room [] Palliative care [] [] Receiving care in room [] Pre-surgical visit [] Trauma [] Long length of stay [] ICU visit [] Other: Relational/Emotional Strength [] Patient feels connected with others/family/visitors/staff [] Distress [] Loneliness/isolation [] Abandonment Spirituality of Patient [] Person of Cheryle [] Attends Advent of their Cheryle [] Believes in Prayer [] Reads Bible or Mandaen materials [] There are Spiritual issues to be addressed Facer Operator Interventions [x] Prayer [x] Active listening [x] Non-anxious presence [x] Spiritual/emotional support [] Crisis/trauma care [] Spiritual counseling [] Bereavement support [] Provided bereavement packet [] Provided Bible/devotional materials [] Provided toy/stuffed animal, coloring book to patient or family member [] Provided Communion [] Anointing/[place] [] Salvation [x] Completed spiritual assessment [] Other: Impact on Illness or Injury [] Angry [] Fearful [] Anxious [] Often cries [] Exhaustion [] Unable to work [] Unable to attend jewish [] Unable to walk/stand [] Unable to read [] Unable to drive [] Unable to eat/drink [] Unable to sleep [] Unable to be with family [] Patient intubated [] Other: Summary Time spent with patient 5 min
--- NOTE | 2023-11-15 09:30 | MR_ITS ---
WS: [id number] EXAMINATION: MR foot RT wo/w con [id number] ORDER DATE: 11/15/2023 11:57 AM COMPARISON: MRI 06/27/2023 HISTORY: Right foot abscess TECHNIQUE: Sagittal T1, sagittal STIR, coronal PD, coronal T2, axial T1, axial T2, and axial PD imagi ng with fat saturation technique. Post gadolinium imaging includes axial T1, coronal T1, and sagittal T1 with fat saturation technique. FINDINGS: Hallux valgus second through fourth toes. Chronic deformity of the first distal phalanx. Loss of the normal T1 fatty bone marrow signal involving the first proximal phalanx extending to the DIP joint and distal phalanx compatible with osteomyelitis. Associated enhancement and edema. Diffuse soft tissue thickening with overlying cellulitis. Plantar ulceration in this area. Tiny trace of edema in head of the first metacarpal. Enhancement extends to the first MTP joint Findings of osteomyelitis have significantly progressed compared to the prior MRI. MR/MR foot RT wo/w con [id number] IMPRESSION: 1. Osteomyelitis involving the first proximal phalanx with replacement of norm al fatty T1 bone marrow signal extending into the distal phalanx. Enhancement e xtends to the first MTP joint with a small amount of edema in the head of the f irst metatarsal with preserved bone marrow signal. 2. Ulceration underlying the first toe with associated cellulitis. 3. Enhancing fluid and edema in the first MTP joint. 4. Hallux valgus second through fourth toes.
--- NOTE | 2023-11-15 12:34 | P.ANESASSM_ITS ---
Pre-Anesthetic Assessment Height/Weight: Height 1.88 m Weight 113.942 kg Temp Pulse Resp BP Pulse Ox O2 Del Method 97.8 F 86 18 136/70 94 Room Air 11/15/23 12:25 11/15/23 12:25 11/15/23 12:25 11/15/23 12:25 11/15/23 12:11/15/23 12:25 Operation Date: 11/15/23 12:55 Proposed Procedures p Incision And Drainage Incision of Bone Cortex(Right) - Nikunj Tejada DPM Familial anesthetic complications: None Was Beta Karena taken within 24 hours: N/A Was Clonidine taken within 24 hours: N/A Last intake: Intake Last Liquid Date 11/15/23 Last Liquid Time 00:00 Last Solid Date 11/14/23 Last Solid Time 21:00 Social Tobacco and No alcohol Exam alert, oriented x 3 and regular rate & rhythm coarse breaths sounds, Acute cough Airway Mallampati: Class IV Dentition: other (extremely poor dentition, chipped missing discolored) CV/HEM Hypertension and Peripheral Vascular Disease Metabolic Diabetes Mellitus Anesthetic Plan ASA status: 4 Anesthesia: Choice Risk of > 500 ml blood loss (7ml/kg in children): No Medications/Allergies Home Medications Medication Instructions Recorded Confirmed Last Taken Type blood sugar diagnostic (FreeStyle #100 ea 11/16/19 11/14/23 Unknown Rx Lite Strips) Diabetic shoes with molded inserts #1 ea 03/18/20 11/14/23 Unknown Rx [place] boot to the left #1 ea 06/11/22 11/14/23 Unknown Rx pregabalin 75 mg capsule (Lyrica) 75 mg PO BID #60 caps 11/10/23 11/14/23 11/13/23 Rx insulin glargine 100 unit/mL (3 30 unit (0.3 mL) SUBCUT BID #15 mL 11/14/23 11/14/23 11/13/23 Rx mL) subcutaneous pen (Lantus Solostar U-100 Insulin) Allergies Allergy/AdvReac Type Severity Reaction Status Date / Time No Known Allergies Allergy Verified 06/03/23 13:05 Current Medications Generic Name Dose Route Start Last Admin Trade Name Freq PRN Reason Stop Dose Admin Acetaminophen 650 mg 11/14/23 16:26 11/15/23 00:31 Acetaminophen 325 Mg Tablet PO 650 mg Q6H PRN Administration Mild/Mod Pain Or Temp >/= 101 Enoxaparin Sodium 40 mg 11/14/23 16:30 11/14/23 17:18 Enoxaparin 40 Mg/0.4 Ml Syringe SUBCUT 40 mg Q24H OZZY Administration Sodium Chloride 1,000 mls @ 75 mls/hr 11/14/23 16:30 11/15/23 06:25 Sodium Chloride 0.9% IV 75 mls/hr .[id number] OZZY Administration Piperacillin Sod/Tazobactam 50 mls @ 12.5 mls/hr 11/14/23 20:30 11/15/23 10:13 Sod 3.375 gm/ Sodium Chloride IV Infused Q8H OZZY Infusion Vancomycin/PEG/NADA/Lysine/Water 1,750 mg in 350 mls @ 233.333 mls/hr 11/15/23 02:00 11/15/23 03:48 Vancocin IV Infused Q12H OZZY Infusion Insulin Human Lispro 0 unit 11/14/23 18:00 11/15/23 08:49 Insulin Lispro 100 Unit/1 Ml SUBCUT Not Given WM&BEDTIME [facility] Protocol Pantoprazole Sodium 40 mg 11/15/23 09:00 11/15/23 09:[address] 40 Mg Tablet PO Not Given DAILY [facility] Pregabalin 75 mg 11/14/23 20:04 11/15/23 09:30 Pregabalin 75 Mg Capsule PO Not Given BID [facility] PFSH Anesthesia Medical History (Updated 11/14/23 @ 16:29 by Nikunj Tejada DPM) Type 2 diabetes mellitus, without long-term current use of insulin Dyslipidemia Splenomegaly PAD (peripheral artery disease) Diabetic foot ulcer Surgical History S/P hernia repair Family History Other Cancer Diabetes Hypertension Social History Smoking and tobacco/nicotine status: current every day tobacco/nicotine user smokeless tobacco Alcohol intake: never Substance/Drug Use: never Data Anesthesia 11/15/23 06:27 11/15/23 06:27 Short CBC 11/14/23 11/15/23 Range/Units 12:34 06:27 WBC 13.37 H 11.27 (3.29-11.43) 10^3/uL Hgb 15.40 12.90 (11.27-16.99) g/dL Hct 45.8 38.7 (37-53) % MCV 90.0 90.6 (82-101) fl Plt Count 238 209 (157-399) 10^3/cmm Neut % (Auto) 80.7 75.1 % Neut # (Auto) 10.79 H 8.46 H (1.8-7.7) 10^3/uL BMP 11/14/23 11/15/23 12:37 06:27 Sodium 134 L 135 L Potassium 4.4 4.0 Chloride 94 L 99 Carbon Dioxide 27 25 BUN 11 10 Creatinine 0.8 0.7 Glucose 243 H 191 H Calcium 9.8 8.7 Liver Function 11/14/23 11/15/23 Range/Units 12:37 06:27 Total Bilirubin 1.2 1.1 (0.15-1.2) mg/dL AST 19 17 (0-40) U/L ALT 27 25 (0-41) U/L Alkaline Phosphatase 117 99 (40-130) U/L Albumin 4.2 3.4 L (3.5-5.2) g/dL COVID Results 11/14/23 13:19 SARS-CoV-2 Ag (Rapid) negative Coags 11/14/23 11/14/23 12:34 12:37 ESR 20 H C-Reactive Protein 231.4 H Microbiology 11/14/23 12:42 Blood Culture - Preliminary Blood SPECIMEN COLLECTED 11/14/23 12:37 Blood Culture - Preliminary Blood SPECIMEN COLLECTED Cardiac Studies: 2 No Data to Display
--- NOTE | 2023-11-15 12:35 | P.HPUD_ITS ---
Surgery/Procedure H&P Update DATE OF PROCEDURE: November 15, 2023 DATE H&P PERFORMED: 11/14/23 H&P UPDATE INFORMATION: I have reviewed H&P completed within last 30 days, I have examined patient prior to procedure, No changes to prior documentation and H&P is in [facility] EMR on date indicated PLANNED PROCEDURE: Operation Date: 11/15/23 12:55 Proposed Procedures p Incision And Drainage Incision of Bone Cortex(Right) - Nikunj Tejada DPM
[2023-11-15] MEDS: sodium chloride 0.9% 1,000 ML 30 ML IV (12:38)
[2023-11-15] MEDS: BUPivacaine 0.5% INJ 30 mL INJECTION (13:22)
--- NOTE | 2023-11-15 13:38 | W.PM.BPON ---
Date of procedure: 11/15/23 Surgeon name: Dr. Nikunj Tejada DPM Senior Manager Quality Assurance(s) name(s): Everardo Procedure(s) performed: Incision and drainage right foot Description of findings: abscess right foot Estimated blood loss: 10 cc Specimen(s) removed: cultures aerobic and anaerobic right foot Post-operative diagnosis: abscess right foot
--- NOTE | 2023-11-15 13:55 | ANE.PACU2 ---
Inpatient post-anesthesia follow up: Airway intact: Yes Vital signs: Temperature 98.9 F Pulse Rate 83 Respiratory Rate 20 Blood Pressure 112/64 Pulse Oximetry 94 Oxygen Delivery Me thod Room Air Oxygen Flow Rate Fraction of Inspir ed Oxygen Hydration adequate: Yes Nausea and vomiting: No Pain level: 1 Mental status: Baseline
[2023-11-15] MEDS: vancomycin 1,750 MG/350 ML PIGGYBACK 233 MG IV (14:28)
[2023-11-15] MEDS: benzonatate 100 mg Capsule PO (15:22)
[2023-11-15] MEDS: morphine 4 mg/mL SDV 1 mL 2 MG IVP (15:34)
[2023-11-15] MEDS: enoxaparin 40 mg/0.4 mL Syringe SUBCUT (15:35)
--- NOTE | 2023-11-15 16:27 | P.PN_ITS ---
Subjective 2 Subjective: Continued to be febrile through the night. Leukocytosis is improving. Status post OR today. Medications: Reviewed: Yes Vitals/I&O/Wt Last Vital Signs Temp 97.5 F L 11/15/23 15:05 Pulse 82 11/15/23 15:05 Resp 19 H 11/15/23 15:34 BP 144/85 11/15/23 15:05 Pulse Ox 94 11/15/23 15:05 O2 Del Method Room Air 11/15/23 15:05 11/15/23 11/15/23 11/15/23 06:59 14:59 22:59 Intake Total 1383.75 / 3093.75 100 / 100 Output Total Balance 1383.75 / 3093.75 90 / 90 Weight last 48 hrs Weight 113.942 kg Weight 111.992 kg Weight 113.398 kg Physical Exam 2 Narrative: General: No acute distress, AO x3 HEENT: PERRLA, pupils bilaterally equal and reactive, pallors not present Chest: Normal vesicular breath sounds, no added sounds, equal good air entry bilaterally CVS: S1-S2 regular, no murmurs, no tachycardia, no gallops, no rubs Abdomen: Soft, nontender, no organomegaly, bowel sounds present Neuro: No focal deficits, no facial deformity, AO x3, power 5/5 in all limbs Extremities: Right foot currently in surgical dressing Data 11/15/23 06:27 11/15/23 06:27 Micro: Microbiology 11/14/23 17:25 Gram Stain - Final Toe - Wound 11/14/23 12:37 Blood Culture - Preliminary Blood NEGATIVE TO DATE 11/14/23 12:42 Blood Culture - Preliminary Blood NEGATIVE TO DATE A&P Assessment and plan (1) Abscess of right foot: (2) Cellulitis: Qualifiers: Laterality: right Site of cellulitis: extremity Site of cellulitis of extremity: lower extremity Qualified Code(s): L03.115 - Cellulitis of right lower limb (3) Diabetic foot ulcers: (4) Diabetic peripheral neuropathy associated with type 2 diabetes mellitus: Plan 53-year-old male with known diabetes mellitus, peripheral neuropathy related to diabetes, presenting with a worsening diabetic foot ulcer progressing into cellulitis and suspicion for underlying abscess. He has leukocytosis, he is febrile. He has failed recent multiple lines of oral antibiotic therapy admit patient to [facility] Blood cultures taken in the emergency room He has received vancomycin empirically, additionally add piperacillin/tazobactam for empiric coverage Vascular studies as noted above, no gross signs of obstruction or occlusion. Plan for an MRI later this afternoon to assess for underlying abscess and osteomyelitis. Plan for or debridement tomorrow To tailor antibiotic therapy based on OR cultures when available. Insulin sliding scale for diabetes mellitus N.p.o. after midnight for likely or intervention tomorrow DVT prophylaxis: Lovenox 40 Full code November 15, 2023. MRI of the foot shows osteomyelitis involving the first proximal phalanx with abnormal signals extending into the distal phalanx. Enhancement extending into the first MTP joint with small amount of edema in the head of the first metatarsal. Underlying associated cellulitis. Status post I&D of the right foot today. Cultures pending from the procedure. Continue empiric piperacillin/tazobactam and vancomycin for the same. Patient also has a past medical history of osteomyelitis of the right foot 5 years ago. Will need PICC line for 6 weeks of IV antibiotics. Will wait until 48 hours after blood cultures are negative to place PICC line. Final antibiotic choice to be based on cultures. Add oxycodone APAP orally for pain control.Check RVP given persitent cough and fever. CXR negative for PNA. Attestations 2 Medical Necessity Statement*: Continued admission for IV antibiotics, status post or intervention today, arrangements for outpatient IV antibiotics Coding Level of Care Code Acute Code for Chg Fwd High MDM includes number and complexity of problems actively addressed during encounter, amount and/or complexity of data reviewed/ordered and described risk of complication, morbidity or mortality of management as documented Diagnoses Abscess of right foot L02.611 Cellulitis L03.115 Laterality: right Site of cellulitis: extremity Site of cellulitis of extremity: lower extremity Diabetic foot ulcers E11.621; L97.509 Diabetic peripheral neuropathy associated with type 2 diabetes mellitus E11.42
[2023-11-15 16:50] LABS: Adenovirus Not Detected (NOT DETECT); Chlamydia Pneumoniae Not Detected (NOT DETECT); Coronavirus 229E,HKU1,NL63,OC4 Not Detected (NOT DETECT); Human Metapneumovirus Not Detected (NOT DETECT); Human Rhinovirus/Enterovirus Not Detected (NOT DETECT); Influenza A Not Detected (NOT DETECT); Influenza A H1 Not Detected (NOT DETECT); Influenza A H1-2009 Not Detected (NOT DETECT); Influenza A H3 Not Detected (NOT DETECT); Influenza B Not Detected (NOT DETECT); Mycoplasma Pneumoniae Not Detected (NOT DETECT); Parainfluenza Virus Type 1 Not Detected (NOT DETECT); Parainfluenza Virus Type 2 Not Detected (NOT DETECT); Parainfluenza Virus Type 3 Not Detected (NOT DETECT); Parainfluenza Virus Type 4 Not Detected (NOT DETECT); Respiratory Syncytial Virus A Not Detected (NOT DETECT); Respiratory Syncytial Virus B Not Detected (NOT DETECT); SARS-COV-2 Not Detected (NOT DETECT)
[2023-11-15 16:54] LABS: Glucose Point of Care 188 mg/dL (70-110)
[2023-11-15] MEDS: pregabalin 75 mg Capsule PO (17:20)
[2023-11-15] MEDS: insulin lispro 100 unit/1 mL SUBCUT ×2 (17:20→21:02)
[2023-11-15 20:36] LABS: Glucose Point of Care 182 mg/dL (70-110)
[2023-11-15] MEDS: ondansetron 2 mg/ML SDV 2 mL 4 MG IVP (21:03)
--- NOTE | 2023-11-15 22:16 | P.OP_ITS ---
Operative Report Date of procedure: November 15, 2023 Pre-op diagnosis: Abscess right foot Post-op diagnosis: Same Post-op findings: Abscess right foot adjacent to first metatarsophalangeal joint capsule. No visible violation of the joint capsule was seen intraoperatively. Infection had tracked from plantar aspect of right hallux full-thickness ulceration along flexor hallucis longus tendon to the medial aspect of the first metatarsophalangeal joint. MRI did show evidence of osteomyelitis of the proximal phalanx of the hallux. Intraoperatively this did not appear to have signs of chronic osteomyelitic erosion but rather appeared normal in color. Abscess did not track more proximal than the site of incision and drainage Procedure done: Incision and drainage right foot CPT 95359 Specimens removed/disposition: Cultures aerobic and anaerobic sent to micro for ID and sensitivity Surgeon: Nikunj Tejada DPM Plastic Welder: Everardo Estimated blood loss: 10 cc No tourniquet Complications: None Findings: See above Procedure: Patient is a 53-year-old male that has a history of right foot chronic ulceration with abscess formation. The patient has had the aforementioned chief complaint for some time and recently developed abscess. Extent of infection warrants incision and drainage right foot. A lengthy discussion regarding the procedure, including risks and complications has been had with the patient and is noted in the recent clinic note. Written and verbal consent have been obtained. All patient questions have been answered to the patient?s satisfaction. No written or verbal guarantees have been given or implied. The patient has been NPO since midnight. The history has been reviewed and the history and physical is current. The signed consent was confirmed and placed in the patient chart. Patient imaging has been reviewed and is consistent with the diagnosis. Under mild sedation, the patient was brought into the operating room and left on the gurney in the supine position. IV antibiotics are being received on the floor [id number]. IV sedation was then performed by the anesthesiateam. A local field block was performed using 0.5% Marcaine plain. A pneumatic tourniquet was then placed about the right ankle. The operative extremity was then prepped and draped in the usual fashion. The tourniquet was not inflated. After prep, the following procedure was then performed. Attention was directed to the right foot where a full-thickness ulceration was visualized under the hallux interphalangeal joint with tendon exposed. A [place] elevator was inserted into the base of the wound and was noted to track in the 5 o'clock position along the medial aspect the first metatarsal phalangeal joint capsule. #15 blade was used to make a full-thickness incision overlying the [place] down to the level of abscess. There was noted to be an extravasation of purulence from the medial aspect first metatarsophalangeal joint. This was just adjacent to the medial first metatarsal phalangeal joint capsule. The capsule was inspected and there was not any apparent violation of the first metatarsal phalangeal joint capsule. There was noted to be significant devitalized and necrotic tissue within the subcutaneous tissue surrounding the first metatarsophalangeal joint. This was removed using a rongeur. Cultures both aerobic and anaerobic were taken at this point and sent to micro for ID and sensitivity. The wound was assessed and did not track proximally beyond site of incision and drainage which was at the most proximal portion of the first metatarsal midshaft. Upon removing devitalized tissue the site was then irrigated with copious amounts of sterile saline via pulse lavage. The necrotic portion of the skin and subcutaneous region overlying the abscess was excised using #15 blade. The remaining tissue appeared healthy and viable. The proximal phalanx did not show any erosive changes that would otherwise indicate longstanding bone infection. The infection course was noted to be along the course of the flexor hallucis longus tendon sheath. It did not appear to track proximally along the sheath any further to the point of incision and drainage. After irrigation was complete, the site was packed with Betadine soaked 4 x 4 gauze before being covered with dry 4 x 4 gauze, ABD pad, Kerlix and Raciel. Prior to application of the Betadine wet-to-dry, hemostasis was achieved via electrocautery. The patient was placed in a postop shoe. The patient tolerated the procedure and anesthesia well and without complication. The patient was transported from the operating room to the recovery room with vital signs stable and vascular status intact to all digits of the right foot. Thepatient was instructed to remain weightbearing as tolerated in postop shoe for transfers only to the operative extremity, to keep surgical dressing clean, dry and intact. The patient will be transferred back to the floor once anesthesia criteria is met. I will continue to round on and follow the patient in the inpatientsetting and provide recommendations to stabilize the patient for discharge. Based on intraoperative findings patient will need PICC line with 6 weeks IV antibiotics. I will discuss this further with infectious disease
[2023-11-16] VITALS (10 sets, daily range): BP systolic 125–153; BP diastolic 72–87; PULSE 80–91; RESP 16–19; TEMP 36.9–38.3; O2SAT 91–96
[2023-11-16] MEDS: sodium chloride 0.9% 1,000 ML 75 ML IV ×2 (00:45→15:55)
[2023-11-16] MEDS: vancomycin 1,750 MG/350 ML PIGGYBACK 233 MG IV ×2 (01:03→23:17)
[2023-11-16] MEDS: piperacillin-tazobactam 3.375 GM in sodium chloride 0.9% (plus) 50 ML IV (04:03)
[2023-11-16 05:46] LABS: Basophils # 0.1 10^3/uL (0.0-0.1); Basophils % 0.6 %; Eosinophils # 0.1 10^3/uL (0.0-0.8); Hematocrit 36.4 % (37-53); Lymphocytes # 2.1 10^3/uL (0.8-4.8); Lymphocytes % 17.5 %; Mean Corpuscular HGB Conc 33.5 g/dL (30-55); Mean Corpuscular Hemoglobin 30.5 pg (27-33); Mean Platelet Volume 10.2 fL (7.4-10.4); Monocytes # 1.5 10^3/uL (0.2-0.9); Monocytes % 12.9 %; Neutrophils # 7.95 10^3/uL (1.8-7.7); Neutrophils % 67.2 %; Nucleated Red Blood Cells % 0 %; Platelet Count 208 10^3/cmm (157-399); Red Cell Distribution Width 12.1 % (12.1-15.1); White Blood Count 11.82 10^3/uL (3.29-11.43)
[2023-11-16 06:04] LABS: Alanine Aminotransferase 21 U/L (0-41); Albumin Level 2.9 g/dL (3.5-5.2); Alkaline Phosphatase 103 U/L (40-130); Anion Gap 14.7 (5-19); Aspartate Amino Transferase 20 U/L (0-40); Blood Urea Nitrogen 9 mg/dL (6-20); Calcium 8.2 mg/dL (8.5-10.5); Carbon Dioxide 22 mmol/L (22-29); Chloride 103 mmol/L (98-107); Creatinine Clr Calc Pharmacy 191.0537; Globulin 4.2 g/dL (1.3-4.6); Glomerular Filtration Rate 141.5 mL/min (90-130); Glucose 165 mg/dL (65-115); Osmolality Calculated 284 mOsm/kg (285-295); Potassium 3.7 mmol/L (3.5-5.1); Sodium 136 mmol/L (136-145); Total Bilirubin 0.7 mg/dL (0.15-1.2); Total Protein 7.1 g/dL (6.6-8.7)
[2023-11-16 06:22] LABS: Glucose Point of Care 150 mg/dL (70-110)
--- NOTE | 2023-11-16 08:09 | PM.PN ---
Subjective Subjective: Patient seen at bedside this morning. Resting comfortably. No overnight events. Fever persists. Cultures pending Vitals/I&O/Wt Last Vital Signs Temp 100.2 F H 11/16/23 08:02 Pulse 91 11/16/23 08:02 Resp 16 11/16/23 08:02 BP 130/72 11/16/23 08:02 Pulse Ox 96 11/16/23 08:02 O2 Del Method Room Air 11/16/23 08:02 11/15/23 11/16/23 11/16/23 22:59 06:59 14:59 Intake Total 2039.5 / 2139.5 750 / 2889.5 Output Total 600 / 610 1000 / 1610 Balance 1439.5 / 1529.5 -250 / 1279.5 Weight last 48 hrs Weight 245 lb 1.6 oz Weight 251 lb 3.2 oz Weight 246 lb 14.4 oz Weight 250 lb Physical Exam Narrative: BELOW IS A FOCUSED LOWER EXTREMITY EXAM GENERAL: A&O x 3 VASCULAR: DP/PT pulses diminished with delayed capillary refill. Biphasic waveforms of right DP/PT via hand-held Doppler DERMATOLOGICAL: Status post incision drainage right foot, erythema and edema improving. Extensive necrotic tissue present wound base this morning during dressing change. New onset blanching to proximal portion of incision and drainage site. Upon milking of the wound no purulence was expressed. No further underlying abscess appreciated. MUSCULOSKELETAL: Focal tenderness with palpation of medial first metatarsophalangeal joint right foot overlying area of suspected abscess. NEUROLOGICAL: Neurological sensation to the affected foot and ankle is diminished through L4-S1 dermatomes via 10g SWMF, diminished sensation extends proximally to the level of the ankle IMAGING: Three-view x-rays of right foot nonweightbearing taken in the emergency department today (11/14/2023) show visible atherosclerosis of right lower extremity arteries. Large soft tissue defect plantar aspect of right hallux. Increase soft tissue density surrounding first metatarsophalangeal joint. No subcutaneous emphysema visualized. No cortical disruption Data 11/16/23 05:11 11/16/23 05:11 Micro: Microbiology 11/14/23 17:25 Gram Stain - Final Toe - Wound 11/14/23 12:37 Blood Culture - Preliminary Blood NEGATIVE TO DATE 11/14/23 12:42 Blood Culture - Preliminary Blood NEGATIVE TO DATE A&P Assessment and plan (1) Ulcer of right foot with fat layer exposed: (2) Abscess of right foot: (3) Diabetic peripheral neuropathy associated with type 2 diabetes mellitus: (4) PAD (peripheral artery disease): Plan -Chronic ulceration right foot with associated abscess -Labs and vitals reviewed -WBC 13.37--> 11.27 -ESR 20 -CRP 231.4 -VSS -Cultures: Right foot wound cultures--heavy GPC's in pairs, few GNR's (preliminary) -Abx Vanco/Zosyn -Diet: Okay for diet -Status post incision and drainage right foot -I discussed with patient that although improved, chance of further surgical intervention and amputation is a real possibility. Patient verbalized understanding to this. At this time, no further surgical intervention is warranted -MRI concerning for osteomyelitis proximal phalanx right hallux. We will proceed with long-term IV antibiotic therapy via PICC line -Pain Mgmt: Per primary team -Weight bearing: Weightbearing to right heel for transfers only -Dressings: Betadine wet-to-dry consisting of 4 x 4 gauze, Kerlix and Raciel. To be performed twice daily by nursing staff -Continue current Abx therapy until ID and Sensitivity results -Trend labs -Discharge plan: Patient will follow-up with wound care in the outpatient setting. Recommend follow-up within the next 7 days. Patient will also need dressing supplies for twice daily dressing changes consisting of Betadine wet-to-dry. Also advised patient to be off of work for the next 6 weeks while PICC line is present and to focus on healing wound. Attestations Medical Necessity Statement*: Right foot abscess status post incision and drainage. Awaiting culture results and PICC line placement Coding Level of Care Code Acute Code for [facility] Fwd Diagnoses Ulcer of right foot with fat layer exposed L97.512 Abscess of right foot L02.611 Diabetic peripheral neuropathy associated with type 2 diabetes mellitus E11.42 PAD (peripheral artery disease) I73.9
[2023-11-16] MEDS: pregabalin 75 mg Capsule PO ×2 (08:12→17:14)
[2023-11-16] MEDS: pantoprazole DR 40 mg Tablet PO (08:12)
[2023-11-16] MEDS: insulin lispro 100 unit/1 mL SUBCUT ×4 (08:13→21:07)
[2023-11-16] MEDS: HYDROcodone-acetaminophen 5-325 mg Tablet 1 TAB PO (08:38)
[2023-11-16 11:03] LABS: Glucose Point of Care 230 mg/dL (70-110)
[2023-11-16] MEDS: benzonatate 100 mg Capsule PO (12:18)
[2023-11-16] MEDS: meropenem 1,000 mg SDV 1000 MG IVP ×2 (12:22→21:06)
[2023-11-16 14:33] LABS: Vancomycin Trough 5.4 ug/mL (10-15)
[2023-11-16] MEDS: vancomycin 1,750 MG/350 ML PIGGYBACK 233.33 MG IV (15:54)
[2023-11-16] MEDS: enoxaparin 40 mg/0.4 mL Syringe SUBCUT (16:02)
[2023-11-16 16:41] LABS: Glucose Point of Care 236 mg/dL (70-110)
--- NOTE | 2023-11-16 17:39 | P.PN_ITS ---
Subjective 2 Subjective: Continues to have intermittent fever, Tmax noted to be 103 Fahrenheit overnight at 8 PM. Respiratory viral panel was negative. Medications: Reviewed: Yes Vitals/I&O/Wt Last Vital Signs Temp 99.8 F H 11/16/23 16:00 Pulse 83 11/16/23 16:00 Resp 18 11/16/23 16:00 BP 144/76 11/16/23 16:00 Pulse Ox 94 11/16/23 16:00 O2 Del Method Room Air 11/16/23 08:02 11/16/23 11/16/23 11/16/23 06:59 14:59 22:59 Intake Total 750 / 2889.5 1290 / 1290 Output Total 1000 / 1610 580 / 580 700 / 1280 Balance -250 / 1279.5 710 / 710 -700 / 10 Weight last 48 hrs Weight 111.175 kg Weight 113.942 kg Weight 111.992 kg Physical Exam 2 Narrative: General: No acute distress, AO x3 HEENT: PERRLA, pupils bilaterally equal and reactive, pallors not present Chest: Normal vesicular breath sounds, no added sounds, equal good air entry bilaterally CVS: S1-S2 regular, no murmurs, no tachycardia, no gallops, no rubs Abdomen: Soft, nontender, no organomegaly, bowel sounds present Neuro: No focal deficits, no facial deformity, AO x3, power 5/5 in all limbs Extremities: No edema clubbing or cyanosis, right foot wrapped in surgical dressing. Data 11/16/23 05:11 11/16/23 05:11 Micro: Microbiology 11/15/23 13:15 Anaerobic Culture - Preliminary Foot - #1 11/16/23 11:50 Blood Culture - Preliminary Blood SPECIMEN COLLECTED 11/16/23 11:47 Blood Culture - Preliminary Blood SPECIMEN COLLECTED 11/14/23 17:25 Gram Stain - Final Toe - Wound Wound Culture - Preliminary Gram Negative Rods Gram Negative Rods#2 Coag positive Staphylococcus Strep agalactiae - (group b) 11/15/23 13:15 Gram Stain - Final Other Source Abscess Culture - Preliminary 11/14/23 12:37 Blood Culture - Preliminary Blood NEGATIVE TO DATE 11/14/23 12:42 Blood Culture - Preliminary Blood NEGATIVE TO DATE A&P Assessment and plan (1) Abscess of right foot: (2) Cellulitis: Qualifiers: Laterality: right Site of cellulitis: extremity Site of cellulitis of extremity: lower extremity Qualified Code(s): L03.115 - Cellulitis of right lower limb (3) Diabetic foot ulcers: (4) Diabetic peripheral neuropathy associated with type 2 diabetes mellitus: Plan 53-year-old male with known diabetes mellitus, peripheral neuropathy related to diabetes, presenting with a worsening diabetic foot ulcer progressing into cellulitis and suspicion for underlying abscess. He has leukocytosis, he is febrile. He has failed recent multiple lines of oral antibiotic therapy admit patient to [facility] Blood cultures taken in the emergency room He has received vancomycin empirically, additionally add piperacillin/tazobactam for empiric coverage Vascular studies as noted above, no gross signs of obstruction or occlusion. Plan for an MRI later this afternoon to assess for underlying abscess and osteomyelitis. Plan for or debridement tomorrow To tailor antibiotic therapy based on OR cultures when available. Insulin sliding scale for diabetes mellitus N.p.o. after midnight for likely or intervention tomorrow DVT prophylaxis: Lovenox 40 Full code November 15, 2023. MRI of the foot shows osteomyelitis involving the first proximal phalanx with abnormal signals extending into the distal phalanx. Enhancement extending into the first MTP joint with small amount of edema in the head of the first metatarsal. Underlying associated cellulitis. Status post I&D of the right foot today. Cultures pending from the procedure. Continue empiric piperacillin/tazobactam and vancomycin for the same. Patient also has a past medical history of osteomyelitis of the right foot 5 years ago. Will need PICC line for 6 weeks of IV antibiotics. Will wait until 48 hours after blood cultures are negative to place PICC line. Final antibiotic choice to be based on cultures. Add oxycodone APAP orally for pain control.Check RVP given persitent cough and fever. CXR negative for PNA. November 16, 2023. Continues to have intermittent fevers. Gram stain from wound cultures taken in the ER showing 2 separate species of gram-negative rods, coag positive Staphylococcus, and group B strep. Respiratory viral panel was negative. Repeat blood cultures ordered today given fever up to 103 Fahrenheit. Additionally obtain tick panel urine analysis to assess for possibility of alternate sources of infection though primarily appears to be related to the foot abscess and osteomyelitis. Change piperacillin/tazobactam to meropenem to expand coverage for drug- resistant gram-negative organisms given that patient has been on multiple recent outpatient antibiotics, possibility of resistant organisms. Continue IV vancomycin. PICC line to be placed once fever free for 24 hours. Blood cultures so far negative to date from admission Attestations 2 Medical Necessity Statement*: Continued need of IV antibiotics, intermittent ongoing fevers, discharge planning Coding Level of Care Code Acute Code for [facility] High MDM includes number and complexity of problems actively addressed during encounter, amount and/or complexity of data reviewed/ordered and described risk of complication, morbidity or mortality of management as documented Diagnoses Abscess of right foot L02.611 Cellulitis L03.115 Laterality: right Site of cellulitis: extremity Site of cellulitis of extremity: lower extremity Diabetic foot ulcers E11.621; L97.509 Diabetic peripheral neuropathy associated with type 2 diabetes mellitus E11.42
[2023-11-16 20:13] LABS: Glucose Point of Care 191 mg/dL (70-110)
[2023-11-16] MEDS: ondansetron 2 mg/ML SDV 2 mL 4 MG IVP (23:15)
[2023-11-16 23:30] LABS: Urine Appearance Clear (CLEAR); Urine Color Yellow (Yellow); pH Urine 5 (5-7)
[2023-11-16 23:31] LABS: Add Urine Culture? No; Add Urine Microscopic? YES; Bacteria Urine TRACE /hpf; Bilirubin Urine Neg (Negative); Blood Urine 2+ (Negative); Glucose Urine UA Norm (Normal); Ketones Urine Negative (Negative); Leukocyte Esterase Urine Negative (Negative); Mucus Urine TRACE /hpf; Nitrate Urine Negative (Negative); Protein Urine Neg (Negative); RBC Urine 0-4 /hpf (0-2); Specific Gravity, Urine 1.015 (1.005-1.030); Squamous Epithelial Cell Urine 0-4 /hpf (0-5); Urobilinogen Urine 1 mg/dL (Negative); WBC Urine 0-4 /hpf (0-5)
[2023-11-17] VITALS (11 sets, daily range): BP systolic 125–146; BP diastolic 74–82; PULSE 74–87; RESP 15–17; TEMP 36.8–38; O2SAT 90–95
[2023-11-17] MEDS: meropenem 1,000 mg SDV 1000 MG IVP ×3 (03:29→21:15)
[2023-11-17 06:19] LABS: Glucose Point of Care 158 mg/dL (70-110)
[2023-11-17] MEDS: vancomycin 1,750 MG/350 ML PIGGYBACK 233 MG IV (06:28)
[2023-11-17] MEDS: insulin lispro 100 unit/1 mL SUBCUT ×4 (10:38→21:08)
[2023-11-17] MEDS: sodium chloride 0.9% 1,000 ML 75 ML IV (10:39)
[2023-11-17] MEDS: pantoprazole DR 40 mg Tablet PO (10:39)
[2023-11-17] MEDS: pregabalin 75 mg Capsule PO ×2 (10:39→18:26)
[2023-11-17 11:27] LABS: Glucose Point of Care 242 mg/dL (70-110)
--- NOTE | 2023-11-17 12:53 | P.CONIM_ITS ---
Providers/Reason For Consult 2 Consulting Physician/Specialty*: Zen Russo D.P.M. podiatry Reason for Consult*: right diabetic foot infection Attending Physician: Marifer Lal MD Primary Care Provider: Pablo Orona DO History of Present Illness History of Present Illness Willard Tran is a 53 year old male admitted to the hospital service for right diabetic foot infection, has had ongoing wounds treated at wound care clinic and had exacerbation of his wound with cellulitis and presented to the emergency department. Underwent surgical debridement of right foot wound 11/15/2023. Review of Systems 2 General: Reports: 10 or more systems reviewed and unremarkable except in HPI and below Const: Denies: fever(s) or chills Eyes: Denies: change in vision Card: Denies: chest pain or palpitations Resp: Denies: dyspnea or productive cough GI: Denies: abdominal pain, nausea or vomiting : Denies: flank pain Musc: Reports: extremity swelling, joint stiffness and deformity Skin/Breast: Reports: erythema, sores, changes in skin color, dry skin, nail changes and change in hair Neuro: Reports: numbness in extremities, sensory changes and difficulty walking Psych: Denies: suicidal ideation Endo: Denies: change in body appearance Naresh/Lymph: Denies: tender lymph nodes Medications/Allergies Home Medications Medication Instructions Recorded Confirmed Last Taken Type blood sugar diagnostic (FreeStyle #100 ea 11/16/19 11/14/23 Unknown Rx Lite Strips) Diabetic shoes with molded inserts #1 ea 03/18/20 11/14/23 Unknown Rx buckland boot to the left #1 ea 06/11/22 11/14/23 Unknown Rx pregabalin 75 mg capsule (Lyrica) 75 mg PO BID #60 caps 11/10/23 11/14/23 11/13/23 Rx insulin glargine 100 unit/mL (3 30 unit (0.3 mL) SUBCUT BID #15 mL 11/14/23 11/14/23 11/13/23 Rx mL) subcutaneous pen (Lantus Solostar U-100 Insulin) Allergies Allergy/AdvReac Type Severity Reaction Status Date / Time No Known Allergies Allergy Verified 06/03/23 13:05 Current Medications Generic Name Dose Route Start Last Admin Trade Name Freq PRN Reason Stop Dose Admin Acetaminophen 650 mg 11/14/23 16:26 11/15/23 19:47 Acetaminophen 325 Mg Tablet PO 650 mg Q6H PRN Administration Mild/Mod Pain Or Temp >/= 101 Hydrocodone Bitart/Acetaminophen 1 tab 11/15/23 16:26 11/16/23 08:38 Hydrocodone-Acetaminophen 5-325 Mg Tablet PO 1 tab Q4H PRN Administration MODERATE PAIN Benzonatate 100 mg 11/15/23 14:52 11/16/23 12:18 Benzonatate 100 Mg Capsule PO 100 mg TID PRN Administration COUGH Enoxaparin Sodium 40 mg 11/14/23 16:30 11/16/23 16:02 Enoxaparin 40 Mg/0.4 Ml Syringe SUBCUT 40 mg Q24H OZZY Administration Sodium Chloride 1,000 mls @ 75 mls/hr 11/14/23 16:30 11/17/23 10:39 Sodium Chloride 0.9% IV 75 mls/hr .[id number] OZZY Administration Vancomycin/PEG/NADA/Lysine/Water 1,750 mg in 350 mls @ 233.333 mls/hr 11/16/23 15:00 11/17/23 08:41 Vancocin IV Infused Q8H OZZY Infusion Insulin Human Lispro 0 unit 11/14/23 18:00 11/17/23 10:38 Insulin Lispro 100 Unit/1 Ml SUBCUT 4 unit WM&BEDTIME OZZY Administration Protocol Meropenem 1,000 mg 11/16/23 11:00 11/17/23 03:29 Meropenem 1,000 Mg Sdv IVP 1,000 mg Q8H OZZY Administration Protocol Morphine Sulfate 2 mg 11/14/23 16:26 11/15/23 15:34 Morphine 4 Mg/Ml Sdv 1 Ml IVP 2 mg Q4H PRN Administration SEVERE PAIN Ondansetron HCl 4 mg 11/15/23 20:05 11/16/23 23:15 Ondansetron 2 Mg/Ml Sdv 2 Ml IVP 4 mg Q4H PRN Administration NAUSEA AND VOMITING Pantoprazole Sodium 40 mg 11/15/23 09:00 11/17/23 10:[address] 40 Mg Tablet PO 40 mg DAILY OZZY Administration Pregabalin 75 mg 11/14/23 20:04 11/17/23 10:39 Pregabalin 75 Mg Capsule PO 75 mg BID OZZY Administration PFSH Acute 2 PFSH: Medical History (Updated 11/18/23 @ 11:39 by Zen Russo DPM) Type 2 diabetes mellitus, without long-term current use of insulin Dyslipidemia Splenomegaly PAD (peripheral artery disease) Diabetic foot ulcer Surgical History S/P hernia repair Family History Other Cancer Diabetes Hypertension Social History Smoking and tobacco/nicotine status: current every day tobacco/nicotine user smokeless tobacco Alcohol intake: never Substance/Drug Use: never Vitals/I&O/Wt Last Vital Signs Temp 98.2 F 11/17/23 11:30 Pulse 81 11/17/23 11:30 Resp 17 11/17/23 11:30 BP 146/81 11/17/23 11:30 Pulse Ox 94 11/17/23 11:30 O2 Del Method Room Air 11/17/23 07:13 11/16/23 11/17/23 11/17/23 22:59 06:59 14:59 Intake Total 950 / 2240 1340 / 3580 840 / 840 Output Total 2250 / 2830 1200 / 4030 Balance -1300 / -590 140 / -450 840 / 840 Weight last 48 hrs Weight 244 lb 8 oz Weight 245 lb 1.6 oz Physical Exam 2 Narrative: GENERAL: Patient is alert and oriented ?3 and in no acute distress. The following is a focused bilateral lower extremity exam. He is accompanied by his daughter Netta. VASCULAR: Dorsalis pedis palpable posterior tibial arteries palpable. Capillary refill time less than 3 seconds to the distal hallux bilaterally. Calf is supple and nontender proximally and distally. NEUROLOGICAL: Protective sensation intact send 10/10 sites, tested with [employer]dell Eliezer monofilament to bilateral feet. DERMATOLOGICAL: Expansive wound at the right forefoot and courses proximally and medially to the right medial longitudinal arch with periwound erythema, devitalized margins has dusky vora appearance exposed to muscle and tendon. MUSCULOSKELETAL: Hallux valgus to the right with apex of the deformity at the hallux interphalangeal joint distal phalanx deviates laterally. Hammertoe contractures digits 2, 3, 4, 5 right foot. Ankle joint dorsiflexion is to 3 degrees beyond neutral with the right with knee extended and 5 degrees with knee flexed. Data 11/18/23 06:09 11/18/23 06:09 Micro: Microbiology 11/16/23 11:50 Blood Culture - Preliminary Blood NEGATIVE TO DATE 11/16/23 11:47 Blood Culture - Preliminary Blood NEGATIVE TO DATE 11/14/23 17:25 Gram Stain - Final Toe - Wound Wound Culture - Preliminary Pseudomonas aeruginosa Gram Negative Rods#2 Staphylococcus aureus Strep agalactiae - (group b) 11/15/23 13:15 Anaerobic Culture - Preliminary Foot - #1 11/15/23 13:15 Gram Stain - Final Other Source Abscess Culture - Preliminary A&P Assessment and plan (1) Abscess of right foot: (2) Diabetic peripheral neuropathy associated with type 2 diabetes mellitus: (3) PAD (peripheral artery disease): (4) Non-pressure chronic ulcer of other part of right foot with necrosis of muscle: Plan Wound has devitalized soft tissue exposed to tendon and muscle right forefoot with progressive erythema to the longitudinal arch approximately necessitating further surgical debridement of soft tissue planning on surgical debridement tomorrow 11/18/2023 with application of wound VAC. N.p.o. at midnight Nonweightbearing right foot Continuing IV antibiotics Patient wishing to proceed with limb salvage efforts consisting of further debridement. He states that if he does not show improvement through the weekend that he would like to discuss appropriate level of amputation for source control of infection. Coding Level of Care Code Acute Code for [facility] Diagnoses Abscess of right foot L02.611 Diabetic peripheral neuropathy associated with type 2 diabetes mellitus E11.42 PAD (peripheral artery disease) I73.9 Non-pressure chronic ulcer of other part of right foot with necrosis of muscle L97.513
[2023-11-17 14:34] LABS: Lyme AB Screen <0.90 index
--- NOTE | 2023-11-17 16:06 | P.PN_ITS ---
Subjective 2 Subjective: Continues to have intermittent fever. Surgical sites appear to be developing necrosis. Plan for or debridement tomorrow. Or culture showing coag positive Staphylococcus, likely to be Staph aureus and group B strep.. Susceptibility pending. Medications: Reviewed: Yes Vitals/I&O/Wt Last Vital Signs Temp 98.2 F 11/17/23 11:30 Pulse 0 L 11/17/23 14:00 Resp 17 11/17/23 11:30 BP 146/81 11/17/23 11:30 Pulse Ox 94 11/17/23 11:30 O2 Del Method Room Air 11/17/23 07:13 11/17/23 11/17/23 11/17/23 06:59 14:59 22:59 Intake Total 1340 / 3580 1840 / 1840 Output Total 1200 / 4030 Balance 140 / -450 1840 / 1840 Weight last 48 hrs Weight 110.903 kg Weight 111.175 kg Physical Exam 2 Narrative: General: No acute distress, AO x3 HEENT: PERRLA, pupils bilaterally equal and reactive, pallors not present Chest: Normal vesicular breath sounds, no added sounds, equal good air entry bilaterally CVS: S1-S2 regular, no murmurs, no tachycardia, no gallops, no rubs Abdomen: Soft, nontender, no organomegaly, bowel sounds present Neuro: No focal deficits, no facial deformity, AO x3, power 5/5 in all limbs Extremities: No edema clubbing or cyanosis, right foot wrapped in surgical dressing. Data 11/16/23 05:11 11/16/23 05:11 Micro: Microbiology 11/15/23 13:15 Gram Stain - Final Other Source Abscess Culture - Preliminary Coag positive Staphylococcus Strep agalactiae - (group b) 11/15/23 13:15 Anaerobic Culture - Preliminary Foot - #1 11/14/23 17:25 Gram Stain - Final Toe - Wound Wound Culture - Final Pseudomonas aeruginosa Serratia liquefaciens Staphylococcus aureus Strep agalactiae - (group b)#2 11/16/23 11:50 Blood Culture - Preliminary Blood NEGATIVE TO DATE 11/16/23 11:47 Blood Culture - Preliminary Blood NEGATIVE TO DATE A&P Assessment and plan (1) Abscess of right foot: (2) Cellulitis: Qualifiers: Laterality: right Site of cellulitis: extremity Site of cellulitis of extremity: lower extremity Qualified Code(s): L03.115 - Cellulitis of right lower limb (3) Diabetic foot ulcers: (4) Diabetic peripheral neuropathy associated with type 2 diabetes mellitus: Plan 53-year-old male with known diabetes mellitus, peripheral neuropathy related to diabetes, presenting with a worsening diabetic foot ulcer progressing into cellulitis and suspicion for underlying abscess. He has leukocytosis, he is febrile. He has failed recent multiple lines of oral antibiotic therapy admit patient to [facility] Blood cultures taken in the emergency room He has received vancomycin empirically, additionally add piperacillin/tazobactam for empiric coverage Vascular studies as noted above, no gross signs of obstruction or occlusion. Plan for an MRI later this afternoon to assess for underlying abscess and osteomyelitis. Plan for or debridement tomorrow To tailor antibiotic therapy based on OR cultures when available. Insulin sliding scale for diabetes mellitus N.p.o. after midnight for likely or intervention tomorrow DVT prophylaxis: Lovenox 40 Full code November 15, 2023. MRI of the foot shows osteomyelitis involving the first proximal phalanx with abnormal signals extending into the distal phalanx. Enhancement extending into the first MTP joint with small amount of edema in the head of the first metatarsal. Underlying associated cellulitis. Status post I&D of the right foot today. Cultures pending from the procedure. Continue empiric piperacillin/tazobactam and vancomycin for the same. Patient also has a past medical history of osteomyelitis of the right foot 5 years ago. Will need PICC line for 6 weeks of IV antibiotics. Will wait until 48 hours after blood cultures are negative to place PICC line. Final antibiotic choice to be based on cultures. Add oxycodone APAP orally for pain control.Check RVP given persitent cough and fever. CXR negative for PNA. November 16, 2023. Continues to have intermittent fevers. Gram stain from wound cultures taken in the ER showing 2 separate species of gram-negative rods, coag positive Staphylococcus, and group B strep. Respiratory viral panel was negative. Repeat blood cultures ordered today given fever up to 103 Fahrenheit. Additionally obtain tick panel urine analysis to assess for possibility of alternate sources of infection though primarily appears to be related to the foot abscess and osteomyelitis. Change piperacillin/tazobactam to meropenem to expand coverage for drug- resistant gram-negative organisms given that patient has been on multiple recent outpatient antibiotics, possibility of resistant organisms. Continue IV vancomycin. PICC line to be placed once fever free for 24 hours. Blood cultures so far negative to date from admission November 17, 2023. Continues to have intermittent fevers. Wound appeared to be necrosed. Plan to be taken back to the OR tomorrow for further debridement to attempt limb salvage measures. OR cultures from November 14 showing coag positive Staphylococcus, likely to be Staph aureus plus group B strep. Superficial wound cultures previously from ER with Pseudomonas aeruginosa, Serratia sp. , MSSA and group B strep. Discontinue vancomycin given Staph aureus appears to be MSSA. Continue meropenem for now, will likely plan to change to cefepime once OR cultures are finalized. Holding off on PICC as still febrile. Blood cultures thus far are negative to date from November 15 and admission.Change insulin to high-dose sliding scale Attestations 2 Medical Necessity Statement*: Continued need of IV antibiotic, plan for or debridement tomorrow. Coding Level of Care Code [facility] Diagnoses Abscess of right foot L02.611 Cellulitis L03.115 Laterality: right Site of cellulitis: extremity Site of cellulitis of extremity: lower extremity Diabetic foot ulcers E11.621; L97.509 Diabetic peripheral neuropathy associated with type 2 diabetes mellitus E11.42
[2023-11-17 16:12] LABS: Glucose Point of Care 189 mg/dL (70-110)
[2023-11-17] MEDS: doxycycline 100 mg Tablet PO (18:26)
[2023-11-17] MEDS: enoxaparin 40 mg/0.4 mL Syringe SUBCUT (18:26)
[2023-11-17 20:49] LABS: Glucose Point of Care 206 mg/dL (70-110)
[2023-11-17] MEDS: benzonatate 100 mg Capsule PO (21:15)
[2023-11-18] VITALS (15 sets, daily range): BP systolic 108–148; BP diastolic 68–86; PULSE 65–93; RESP 14–25; TEMP 36.4–37.9; O2SAT 90–97
[2023-11-18] MEDS: meropenem 1,000 mg SDV 1000 MG IVP ×2 (04:05→11:38)
[2023-11-18 06:33] LABS: Basophils # 0.1 10^3/uL (0.0-0.1); Basophils % 0.6 %; Eosinophils # 0.3 10^3/uL (0.0-0.8); Eosinophils % 2.4 %; Hematocrit 37.2 % (37-53); Lymphocytes % 18.2 %; Mean Corpuscular HGB Conc 34.1 g/dL (30-55); Mean Corpuscular Hemoglobin 30.2 pg (27-33); Mean Corpuscular Volume 88.6 fl (82-101); Mean Platelet Volume 10.2 fL (7.4-10.4); Monocytes # 0.9 10^3/uL (0.2-0.9); Neutrophils # 7.72 10^3/uL (1.8-7.7); Neutrophils % 70.1 %; Nucleated Red Blood Cells % 0 %; Platelet Count 222 10^3/cmm (157-399); Red Cell Distribution Width 12.1 % (12.1-15.1); White Blood Count 11.02 10^3/uL (3.29-11.43)
[2023-11-18 06:49] LABS: Alanine Aminotransferase 46 U/L (0-41); Alkaline Phosphatase 113 U/L (40-130); Anion Gap 16.2 (5-19); Aspartate Amino Transferase 38 U/L (0-40); Blood Urea Nitrogen 14 mg/dL (6-20); Calcium 8.3 mg/dL (8.5-10.5); Carbon Dioxide 27 mmol/L (22-29); Chloride 100 mmol/L (98-107); Creatinine Clr Calc Pharmacy 162.8419; Globulin 3.5 g/dL (1.3-4.6); Glomerular Filtration Rate 118.4 mL/min (90-130); Glucose 227 mg/dL (65-115); Osmolality Calculated 296 mOsm/kg (285-295); Potassium 4.2 mmol/L (3.5-5.1); Sodium 139 mmol/L (136-145); Total Bilirubin 0.4 mg/dL (0.15-1.2); Total Protein 6.5 g/dL (6.6-8.7)
[2023-11-18 07:59] LABS: Glucose Point of Care 217 mg/dL (70-110)
--- NOTE | 2023-11-18 11:00 | P.PN_ITS ---
Subjective 2 Subjective: , Tmax 100.2 Fahrenheit this morning. Leukocytosis has resolved. Plan to go back to the OR for debridement and wound VAC today. Medications: Reviewed: Yes Vitals/I&O/Wt Last Vital Signs Temp 98.2 F 11/18/23 14:40 Pulse 71 11/18/23 14:40 Resp 25 H 11/18/23 14:40 BP 143/80 11/18/23 14:40 Pulse Ox 93 11/18/23 14:40 O2 Del Method Room Air 11/18/23 14:40 11/18/23 11/18/23 11/18/23 06:59 14:59 22:59 Intake Total 50 / 50 Output Total 900 / 1300 250 / 250 Balance -900 / 780 -200 / -200 Weight last 48 hrs Weight 109.86 kg Weight 110.903 kg Physical Exam 2 Narrative: General: No acute distress, AO x3 HEENT: PERRLA, pupils bilaterally equal and reactive, pallors not present Chest: Normal vesicular breath sounds, no added sounds, equal good air entry bilaterally CVS: S1-S2 regular, no murmurs, no tachycardia, no gallops, no rubs Abdomen: Soft, nontender, no organomegaly, bowel sounds present Neuro: No focal deficits, no facial deformity, AO x3, power 5/5 in all limbs Extremities: No edema clubbing or cyanosis, right foot wrapped in surgical dressing. Data 11/18/23 06:09 11/18/23 06:09 Micro: Microbiology 11/15/23 13:15 Anaerobic Culture - Preliminary Foot - #1 11/15/23 13:15 Gram Stain - Final Other Source Abscess Culture - Final Staphylococcus aureus Strep agalactiae - (group b)#2 11/14/23 17:25 Gram Stain - Final Toe - Wound Wound Culture - Final Pseudomonas aeruginosa Serratia liquefaciens Staphylococcus aureus Strep agalactiae - (group b)#2 A&P Assessment and plan (1) Abscess of right foot: (2) Cellulitis: Qualifiers: Laterality: right Site of cellulitis: extremity Site of cellulitis of extremity: lower extremity Qualified Code(s): L03.115 - Cellulitis of right lower limb (3) Diabetic foot ulcers: (4) Diabetic peripheral neuropathy associated with type 2 diabetes mellitus: Plan 53-year-old male with known diabetes mellitus, peripheral neuropathy related to diabetes, presenting with a worsening diabetic foot ulcer progressing into cellulitis and suspicion for underlying abscess. He has leukocytosis, he is febrile. He has failed recent multiple lines of oral antibiotic therapy admit patient to [facility] Blood cultures taken in the emergency room He has received vancomycin empirically, additionally add piperacillin/tazobactam for empiric coverage Vascular studies as noted above, no gross signs of obstruction or occlusion. Plan for an MRI later this afternoon to assess for underlying abscess and osteomyelitis. Plan for or debridement tomorrow To tailor antibiotic therapy based on OR cultures when available. Insulin sliding scale for diabetes mellitus N.p.o. after midnight for likely or intervention tomorrow DVT prophylaxis: Lovenox 40 Full code November 15, 2023. MRI of the foot shows osteomyelitis involving the first proximal phalanx with abnormal signals extending into the distal phalanx. Enhancement extending into the first MTP joint with small amount of edema in the head of the first metatarsal. Underlying associated cellulitis. Status post I&D of the right foot today. Cultures pending from the procedure. Continue empiric piperacillin/tazobactam and vancomycin for the same. Patient also has a past medical history of osteomyelitis of the right foot 5 years ago. Will need PICC line for 6 weeks of IV antibiotics. Will wait until 48 hours after blood cultures are negative to place PICC line. Final antibiotic choice to be based on cultures. Add oxycodone APAP orally for pain control.Check RVP given persitent cough and fever. CXR negative for PNA. November 16, 2023. Continues to have intermittent fevers. Gram stain from wound cultures taken in the ER showing 2 separate species of gram-negative rods, coag positive Staphylococcus, and group B strep. Respiratory viral panel was negative. Repeat blood cultures ordered today given fever up to 103 Fahrenheit. Additionally obtain tick panel urine analysis to assess for possibility of alternate sources of infection though primarily appears to be related to the foot abscess and osteomyelitis. Change piperacillin/tazobactam to meropenem to expand coverage for drug- resistant gram-negative organisms given that patient has been on multiple recent outpatient antibiotics, possibility of resistant organisms. Continue IV vancomycin. PICC line to be placed once fever free for 24 hours. Blood cultures so far negative to date from admission November 17, 2023. Continues to have intermittent fevers. Wound appeared to be necrosed. Plan to be taken back to the OR tomorrow for further debridement to attempt limb salvage measures. OR cultures from November 14 showing coag positive Staphylococcus, likely to be Staph aureus plus group B strep. Superficial wound cultures previously from ER with Pseudomonas aeruginosa, Serratia sp. , MSSA and group B strep. Discontinue vancomycin given Staph aureus appears to be MSSA. Continue meropenem for now, will likely plan to change to cefepime once OR cultures are finalized. Holding off on PICC as still febrile. Blood cultures thus far are negative to date from November 15 and admission.Change insulin to high-dose sliding scale November 18, 2023. Fever curve appears to be improving. Leukocytosis resolved. Plan to go back to the OR today for further debridement and wound VAC placement. Cultures from the OR now identified with MSSA and group B strep. From the ER cultures with Pseudomonas Serratia MSSA and group B strep. Discontinue meropenem, changed to cefepime 2 g IV every 8 hours which would be the anticipated antibiotic at discharge. PICC line when fever free for 24 hours. Blood culture remains negative to date. Attestations 2 Medical Necessity Statement*: Continued IV antibiotics, OR intervention today Coding Level of Care Code Acute Code for [facility] Diagnoses Abscess of right foot L02.611 Cellulitis L03.115 Laterality: right Site of cellulitis: extremity Site of cellulitis of extremity: lower extremity Diabetic foot ulcers E11.621; L97.509 Diabetic peripheral neuropathy associated with type 2 diabetes mellitus E11.42
[2023-11-18 11:24] LABS: Glucose Point of Care 248 mg/dL (70-110)
--- NOTE | 2023-11-18 11:56 | NUR.SHIFT ---
surgery pt was taken down to surgery.
--- NOTE | 2023-11-18 12:12 | P.ANESASSM_ITS ---
Pre-Anesthetic Assessment Height/Weight: Height 1.88 m Weight 109.86 kg Temp Pulse Resp BP Pulse Ox O2 Del Method 97.8 F 75 17 133/83 95 Room Air 11/18/23 11:25 11/18/23 11:25 11/18/23 11:25 11/18/23 11:25 11/18/23 11:25 11/18/23 11:25 Preop Diagnosis: Right diabetic foot infection exposed muscle and tendon Operation Date: 11/15/23 12:55 Proposed Procedures p Incision And Drainage Incision of Bone Cortex(Right) - Nikunj Tejada DPM Operation Date: 11/18/23 12:00 Proposed Procedures p Incision And Drainage with wound VAC placement(Right) - Zen Russo DPM Familial anesthetic complications: None Was Beta Karena taken within 24 hours: N/A Was Clonidine taken within 24 hours: N/A Last intake: Intake Last Liquid Date 11/17/23 Last Liquid Time 23:00 Last Solid Date 11/17/23 Last Solid Time 19:00 Social No alcohol and No tobacco Exam alert, oriented x 3, clear to auscultation bilaterally and regular rate & rhythm Airway Mallampati: Class IV Dentition: other ( bad teeth ) Metabolic Diabetes Mellitus Anesthetic Plan ASA status: 3 Anesthesia: MAC Risk of > 500 ml blood loss (7ml/kg in children): No Medications/Allergies Home Medications Medication Instructions Recorded Confirmed Last Taken Type blood sugar diagnostic (FreeStyle #100 ea 11/16/19 11/14/23 Unknown Rx Lite Strips) Diabetic shoes with molded inserts #1 ea 03/18/20 11/14/23 Unknown Rx venetie boot to the left #1 ea 06/11/22 11/14/23 Unknown Rx pregabalin 75 mg capsule (Lyrica) 75 mg PO BID #60 caps 11/10/23 11/14/23 11/13/23 Rx insulin glargine 100 unit/mL (3 30 unit (0.3 mL) SUBCUT BID #15 mL 11/14/23 11/14/23 11/13/23 Rx mL) subcutaneous pen (Lantus Solostar U-100 Insulin) Allergies Allergy/AdvReac Type Severity Reaction Status Date / Time No Known Allergies Allergy Verified 06/03/23 13:05 Current Medications Generic Name Dose Route Start Last Admin Trade Name Freq PRN Reason Stop Dose Admin Acetaminophen 650 mg 11/14/23 16:26 11/15/23 19:47 Acetaminophen 325 Mg Tablet PO 650 mg Q6H PRN Administration Mild/Mod Pain Or Temp >/= 101 Hydrocodone Bitart/Acetaminophen 1 tab 11/15/23 16:26 11/16/23 08:38 Hydrocodone-Acetaminophen 5-325 Mg Tablet PO 1 tab Q4H PRN Administration MODERATE PAIN Benzonatate 100 mg 11/15/23 14:52 11/17/23 21:15 Benzonatate 100 Mg Capsule PO 100 mg TID PRN Administration COUGH Doxycycline Monohydrate 100 mg 11/17/23 18:00 11/17/23 18:26 Doxycycline 100 Mg Tablet PO 100 mg BID OZZY Administration Protocol Enoxaparin Sodium 40 mg 11/14/23 16:30 11/17/23 18:26 Enoxaparin 40 Mg/0.4 Ml Syringe SUBCUT 40 mg Q24H OZZY Administration Insulin Human Lispro 0 unit 11/14/23 18:00 11/18/23 11:30 Insulin Lispro 100 Unit/1 Ml SUBCUT Not Given WM&BEDTIME OZZY Protocol Meropenem 1,000 mg 11/16/23 11:00 11/18/23 11:38 Meropenem 1,000 Mg Sdv IVP 1,000 mg Q8H OZZY Administration Protocol Morphine Sulfate 2 mg 11/14/23 16:26 11/15/23 15:34 Morphine 4 Mg/Ml Sdv 1 Ml IVP 2 mg Q4H PRN Administration SEVERE PAIN Ondansetron HCl 4 mg 11/15/23 20:05 11/16/23 23:15 Ondansetron 2 Mg/Ml Sdv 2 Ml IVP 4 mg Q4H PRN Administration NAUSEA AND VOMITING Pantoprazole Sodium 40 mg 11/15/23 09:00 11/17/23 10:[address] 40 Mg Tablet PO 40 mg DAILY OZZY Administration Pregabalin 75 mg 11/14/23 20:04 11/17/23 18:26 Pregabalin 75 Mg Capsule PO 75 mg BID OZZY Administration PFSH Anesthesia Medical History (Updated 11/18/23 @ 11:39 by Zen Russo DPM) Type 2 diabetes mellitus, without long-term current use of insulin Dyslipidemia Splenomegaly PAD (peripheral artery disease) Diabetic foot ulcer Surgical History S/P hernia repair Family History Other Cancer Diabetes Hypertension Social History Smoking and tobacco/nicotine status: current every day tobacco/nicotine user smokeless tobacco Alcohol intake: never Substance/Drug Use: never Data Anesthesia 11/18/23 06:09 11/18/23 06:09 Short CBC 11/18/23 Range/Units 06:09 WBC 11.02 (3.29-11.43) 10^3/uL Hgb 12.70 (11.27-16.99) g/dL Hct 37.2 (37-53) % MCV 88.6 (82-101) fl Plt Count 222 (157-399) 10^3/cmm Neut % (Auto) 70.1 % Neut # (Auto) 7.72 H (1.8-7.7) 10^3/uL BMP 11/18/23 06:09 Sodium 139 Potassium 4.2 Chloride 100 Carbon Dioxide 27 BUN 14 Creatinine 0.7 Glucose 227 H Calcium 8.3 L Liver Function 11/18/23 Range/Units 06:09 Total Bilirubin 0.4 (0.15-1.2) mg/dL AST 38 (0-40) U/L ALT 46 H (0-41) U/L Alkaline Phosphatase 113 (40-130) U/L Albumin 3.0 L (3.5-5.2) g/dL Urine 11/16/23 Range/Units 21:15 Urine Color Yellow (Yellow) Urine Appearance Clear (CLEAR) Urine pH 5 (5-7) Ur Specific [place] 1.015 (1.005-1.030) Urine Protein Neg (Negative) Urine Glucose (UA) Norm (Normal) Urine Ketones Negative (Negative) Urine Nitrate Negative (Negative) Urine Bilirubin Neg (Negative) Ur Leukocyte Esterase Negative (Negative) Urine RBC 0-4 H (0-2) /hpf Urine WBC 0-4 H (0-5) /hpf Microbiology 11/15/23 13:15 Gram Stain - Final Other Source Abscess Culture - Preliminary Coag positive Staphylococcus Strep agalactiae - (group b) 11/15/23 13:15 Anaerobic Culture - Preliminary Foot - #1 11/14/23 17:25 Gram Stain - Final Toe - Wound Wound Culture - Final Pseudomonas aeruginosa Serratia liquefaciens Staphylococcus aureus Strep agalactiae - (group b)#2 11/16/23 11:50 Blood Culture - Preliminary Blood NEGATIVE TO DATE 11/16/23 11:47 Blood Culture - Preliminary Blood NEGATIVE TO DATE Cardiac Studies: 2 No Data to Display
[2023-11-18] MEDS: sodium chloride 0.9% 1,000 ML 30 ML IV (12:35)
[2023-11-18 13:00] LABS: Glucose Point of Care 231 mg/dL (70-110)
--- NOTE | 2023-11-18 13:11 | W.PM.OPSUD ---
Surgery/Procedure H&P Update DATE OF PROCEDURE: November 18, 2023 DATE H&P PERFORMED: 11/14/23 H&P UPDATE INFORMATION: I have reviewed H&P completed within last 30 days, I have examined patient prior to procedure, No changes to prior documentation and H&P is in [facility] EMR on date indicated PREOP DIAGNOSIS: Right diabetic foot infection exposed muscle and tendon PLANNED PROCEDURE: Operation Date: 11/15/23 12:55 Proposed Procedures p Incision And Drainage Incision of Bone Cortex(Right) - Nikunj Tejada DPM Operation Date: 11/18/23 12:00 Proposed Procedures p Incision And Drainage with wound VAC placement(Right) - Zen Russo DPM
[2023-11-18] MEDS: lidocaine 1% INJ 10 mL (per mL) 20 ML INJECTION (13:20)
--- NOTE | 2023-11-18 13:40 | W.PM.BPON ---
Date of Procedure: 07/08/23 Surgeon: Zen Russo DPM Cosmetology Educator(s): Arianna EWING Procedure(s) performed: Incision and debridement down to bone right foot with application of wound VAC right foot Findings of the procedure(s): Devitalized tissue including muscle tendon and bone right foot. Estimated blood loss: 25 Specimen(s) removed: None Post-operative diagnosis: Right diabetic foot infection
--- NOTE | 2023-11-18 14:25 | ANE.PACU2 ---
Inpatient post-anesthesia follow up: Airway intact: Yes Vital signs: Temperature 98.2 F Pulse Rate 71 Respiratory Rate 25 Blood Pressure 143/80 Pulse Oximetry 93 Oxygen Delivery Me thod Room Air Oxygen Flow Rate Fraction of Inspir ed Oxygen Hydration adequate: Yes Nausea and vomiting: No Pain level: 1 Mental status: Baseline
--- NOTE | 2023-11-18 14:53 | CT_ITS ---
WS: [id number] CT chest wo con [id number] HISTORY: chronic cough and fever 3 weeks TECHNIQUE: Axial imaging performed through the thorax. Coronal and sagittal reformats are submitted. All CT scans at [facility] use at least one of these dose optimization techniques: automated exposure control; mA and/or kV adjustment per patient size (includes targeted exams where dose is mat ched to clinical indication); or iterative reconstruction. CONTRAST: Omnipaque 350; 100 mL IV. DLP: 696.95 mGy.cm COMPARISON: 10/03/2012 Lungs and central airway: No dense areas of consolidation. Very subtle changes of tree-in-bud airspace disease are noted in the posterior lower lobes. No mass o r nodule. Pleura: Normal. No pleural effusion. Heart and pericardium: Normal size heart with no pericardial effusion. Mediastinum and radha: No adenopathy identified. Vessels: Normal size aortic and pulmonary artery. No coronary artery calcifications. Chest wall and lower neck: Mild bilateral gynecomastia. Upper abdomen: Spleen is enlarged measuring at least 14 cm in length. Mild bilateral perinephric stra nding. Osseous structures: No destructive process. CT/CT chest wo con [id number] IMPRESSION: 1. No dense area of consolidation or pneumonia. 2. Mild tree-in-bud airspace disease in the lower lobes. Typically seen with e ndobronchial pneumonia or aspiration. 3. No adenopathy. 4. Gynecomastia. 5. Mild splenomegaly.
--- NOTE | 2023-11-18 16:54 | P.OP_ITS ---
Operative Report Date of procedure: November 18, 2023 Pre-op diagnosis: Abscess right foot Post-op diagnosis: Right diabetic foot ulcer exposed to devitalized muscle, tendon and fascia Procedure done: Excisional debridement right foot down to devitalized muscle, tendon and fascia. CPT 94565 Application of wound VAC right foot. Implants: Wound VAC with granular foam dressing right foot Specimens removed/disposition: None Pathology: None Surgeon: Zen Russo DPM Sole Scraper: Arianna EWING Estimated blood loss: 25 See intraoperative documentation IV fluids: See intraoperative documentation Urine output: 0 Complications: None Brief History: 53-year-old diabetic male presents with polymicrobial right diabetic foot infection requiring additional incision and debridement of right foot wound secondary to devitalized tissue and continued clinical signs of infection of the right foot. Limb salvage efforts require further surgical debridement and wound VAC application. Procedure: Under mild sedation the patient was brought to the operating room and remained on the gurney in supine position. Timeout was performed. Anesthesia was then administered by the anesthesia service. Local anesthesia injected by myself consisting of 20 cc of 1% lidocaine plain right male block fashion. Well-padded pneumatic tourniquet applied to the right ankle. The right lower extremity was scrubbed, prepped and draped utilizing normal aseptic technique. No Esmarch bandage was utilized. Right foot was elevated and ankle tourniquet inflated to 250 mmHg. Just was directed to the right medial forefoot wound where excisional debrid ement was performed with pickups and a #15 blade of the wound margins and wound bed, debridement was excisional in nature and the wound was debrided of devitalized epidermis, dermis, subcutaneous tissue, muscle, tendon and fascia. The wound was irrigated with copious amounts of sterile skin solution total of 4 L. Postdebridement wound measurement 9 cm x 5 cm x 1 cm. Bleeding margins and improved appearance of wound bed postdebridement. Wound was then dressed with a wound VAC dressing with excellent seal set 125 mm of continuous negative pressure. Tourniquet was deflated and a hyperemic spots was noted to the digits of the right foot. Patient tolerated the procedure well and anesthesia well and was transferred to the PACU with vital signs stable and vascular status intact. Following a period of postoperative monitoring will be transferred back to the floor to continue IV antibiotic therapy, will monitor his response to further surgical debridement this weekend, planning on changing wound VAC on Tuesday.
[2023-11-18 17:06] LABS: Glucose Point of Care 192 mg/dL (70-110)
[2023-11-18] MEDS: insulin lispro 100 unit/1 mL SUBCUT ×2 (17:23→22:02)
[2023-11-18] MEDS: pregabalin 75 mg Capsule PO (17:23)
[2023-11-18] MEDS: enoxaparin 40 mg/0.4 mL Syringe SUBCUT (17:23)
[2023-11-18] MEDS: doxycycline 100 mg Tablet PO (17:23)
[2023-11-18] MEDS: cefepime 2,000 MG in sodium chloride 0.9% (plus) 50 ML 100 MG IV (20:35)
[2023-11-18 21:46] LABS: Glucose Point of Care 193 mg/dL (70-110)
[2023-11-18] MEDS: HYDROcodone-acetaminophen 5-325 mg Tablet 1 TAB PO (23:09)
[2023-11-19] VITALS (11 sets, daily range): BP systolic 112–146; BP diastolic 60–90; PULSE 66–88; RESP 16–20; TEMP 36.7–36.9; O2SAT 90–98
[2023-11-19 03:46] LABS: Basophils # 0.1 10^3/uL (0.0-0.1); Basophils % 0.6 %; Eosinophils # 0.2 10^3/uL (0.0-0.8); Eosinophils % 1.7 %; Hematocrit 36.1 % (37-53); Lymphocytes # 2.5 10^3/uL (0.8-4.8); Lymphocytes % 18.6 %; Mean Corpuscular HGB Conc 31.6 g/dL (30-55); Mean Corpuscular Hemoglobin 29.7 pg (27-33); Mean Platelet Volume 12.4 fL (7.4-10.4); Monocytes # 1.1 10^3/uL (0.2-0.9); Monocytes % 8.1 %; Neutrophils # 9.38 10^3/uL (1.8-7.7); Neutrophils % 70.1 %; Nucleated Red Blood Cells % 0 %; Platelet Count 128 10^3/cmm (157-399); Red Blood Count 3.84 10^6/uL (3.85-5.65); Red Cell Distribution Width 12.1 % (12.1-15.1); White Blood Count 13.39 10^3/uL (3.29-11.43)
[2023-11-19 04:08] LABS: Alanine Aminotransferase 56 U/L (0-41); Alkaline Phosphatase 138 U/L (40-130); Aspartate Amino Transferase 48 U/L (0-40); Blood Urea Nitrogen 12 mg/dL (6-20); Carbon Dioxide 24 mmol/L (22-29); Chloride 97 mmol/L (98-107); Creatinine Clr Calc Pharmacy 162.8419; Globulin 3.3 g/dL (1.3-4.6); Glomerular Filtration Rate 118.4 mL/min (90-130); Glucose 245 mg/dL (65-115); Osmolality Calculated 284 mOsm/kg (285-295); Sodium 133 mmol/L (136-145); Total Bilirubin 0.4 mg/dL (0.15-1.2); Total Protein 6.3 g/dL (6.6-8.7)
[2023-11-19] MEDS: cefepime 2,000 MG in sodium chloride 0.9% (plus) 50 ML 100 MG IV ×3 (04:09→20:34)
[2023-11-19 04:10] LABS: Anion Gap 15.9 (5-19); Potassium 3.9 mmol/L (3.5-5.1)
[2023-11-19 06:30] LABS: Glucose Point of Care 206 mg/dL (70-110)
[2023-11-19] MEDS: insulin lispro 100 unit/1 mL SUBCUT ×4 (07:33→21:11)
[2023-11-19] MEDS: doxycycline 100 mg Tablet PO ×2 (07:34→17:36)
[2023-11-19] MEDS: pantoprazole DR 40 mg Tablet PO (07:34)
[2023-11-19] MEDS: pregabalin 75 mg Capsule PO ×2 (07:34→17:36)
--- NOTE | 2023-11-19 08:22 | P.PN_ITS ---
Subjective 2 Subjective: Patient seen bedside this a.m., tolerating regular diet, denies foot pain. Denies any acute events overnight. Wound VAC functioning with excellent seal. Patient denies any subjective nausea, vomiting, fever, chills, shortness of breath or chest pain. Vitals/I&O/Wt Last Vital Signs Temp 98.1 F 11/19/23 07:45 Pulse 72 11/19/23 07:45 Resp 18 11/19/23 07:45 BP 112/76 11/19/23 07:45 Pulse Ox 92 11/19/23 07:45 O2 Del Method Room Air 11/19/23 07:45 11/18/23 11/19/23 11/19/23 22:59 06:59 14:59 Intake Total 630 / 680 50 / 730 60 / 60 Output Total 350 / 600 Balance 280 / 80 50 / 130 60 / 60 Weight last 48 hrs Weight 260 lb 5 oz Weight 242 lb 3.2 oz Physical Exam 2 Narrative: GENERAL: Patient is alert and oriented ?3 and in no acute distress. The following is a focused bilateral lower extremity exam. He is accompanied by his daughter Netta. VASCULAR: Dorsalis pedis palpable posterior tibial arteries palpable. Capillary refill time less than 3 seconds to the distal hallux bilaterally. Calf is supple and nontender proximally and distally. NEUROLOGICAL: Protective sensation intact send 10/10 sites, tested with [place]zer monofilament to bilateral feet. DERMATOLOGICAL: Wound VAC intact, upon removal of wound VAC dressing devitalized wound base at the most proximal portion was appreciated, no pulsatile bleeding, no purulence. MUSCULOSKELETAL: Hallux valgus to the right with apex of the deformity at the hallux interphalangeal joint distal phalanx deviates laterally. Hammertoe contractures digits 2, 3, 4, 5 right foot. Ankle joint dorsiflexion is to 3 degrees beyond neutral with the right with knee extended and 5 degrees with knee flexed. Data 11/20/23 03:29 11/20/23 03:29 Micro: Microbiology 11/15/23 13:15 Anaerobic Culture - Preliminary Foot - #1 11/15/23 13:15 Gram Stain - Final Other Source Abscess Culture - Final Staphylococcus aureus Strep agalactiae - (group b)#2 A&P Assessment and plan (1) Abscess of right foot: (2) Diabetic peripheral neuropathy associated with type 2 diabetes mellitus: (3) PAD (peripheral artery disease): (4) Non-pressure chronic ulcer of other part of right foot with necrosis of muscle: Plan Changed left foot wound VAC at today's visit, bedside debridement, continuing IV antibiotics. Nonweightbearing left foot Plans for changing wound VAC tomorrow and further evaluating his overall situation, may require some level of amputation pending his response Attestations 2 Medical Necessity Statement*: Right foot abscess status post incision and drainage. Requires continued antibiotic therapy and wound care with wound VAC potentially further surgical debridement versus amputation. Coding Level of Care Code Acute Code for [facility] Diagnoses Abscess of right foot L02.611 Diabetic peripheral neuropathy associated with type 2 diabetes mellitus E11.42 PAD (peripheral artery disease) I73.9 Non-pressure chronic ulcer of other part of right foot with necrosis of muscle L97.513
[2023-11-19 11:32] LABS: Glucose Point of Care 208 mg/dL (70-110)
--- NOTE | 2023-11-19 13:46 | XRR_ITS ---
PROCEDURE INFORMATION: Exam: XR Chest Exam date and time: 11/19/2023 2:33 PM Age: 53 years old Clinical indication: Device placement; Patient HX: RT picc confirmation; Additional info: Post picc placement TECHNIQUE: Imaging protocol: Radiologic exam of the chest. Views: 1 view. COMPARISON: CT chest [facility] [id number] 11/18/2023 3:19 PM FINDINGS: Tubes, catheters and devices: Right upper extremity PICC tip is seen at the superior cavoatrial junction. Lungs: Unremarkable. No consolidation. Pleural spaces: Unremarkable. No pleural effusion. No pneumothorax. Heart/Mediastinum: Unremarkable. No cardiomegaly. Bones/joints: Mild degenerative disease of bilateral acromioclavicular joints. XR/XR chest 1V portable [id number] IMPRESSION: Right upper extremity PICC tip is seen at the superior cavoatrial junction.
[2023-11-19] MEDS: enoxaparin 40 mg/0.4 mL Syringe SUBCUT (15:27)
[2023-11-19 16:43] LABS: Glucose Point of Care 183 mg/dL (70-110)
--- NOTE | 2023-11-19 17:31 | PM.PN ---
Subjective Subjective: Remains afebrile for over 24 hours now, hemodynamically stable. OR cultures now updated also to include Prevotella. Medications: Reviewed: Yes Vitals/I&O/Wt Last Vital Signs Temp 98.1 F 11/19/23 15:44 Pulse 69 11/19/23 15:44 Resp 20 H 11/19/23 15:44 BP 131/78 11/19/23 15:44 Pulse Ox 94 11/19/23 15:44 O2 Del Method Room Air 11/19/23 12:07 11/19/23 11/19/23 11/19/23 06:59 14:59 22:59 Intake Total 50 / 730 230 / 230 120 / 350 Output Total 400 / 400 300 / 700 Balance 50 / 130 -170 / -170 -180 / -350 Weight last 48 hrs Weight 118.076 kg Weight 109.86 kg Physical Exam Narrative: General: No acute distress, AO x3 HEENT: PERRLA, pupils bilaterally equal and reactive, pallors not present Chest: Normal vesicular breath sounds, no added sounds, equal good air entry bilaterally CVS: S1-S2 regular, no murmurs, no tachycardia, no gallops, no rubs Abdomen: Soft, nontender, no organomegaly, bowel sounds present Neuro: No focal deficits, no facial deformity, AO x3, power 5/5 in all limbs Extremities: No edema clubbing or cyanosis, right foot wrapped in surgical dressing. VAC in place Data 11/20/23 03:29 11/20/23 03:29 Micro: Microbiology 11/15/23 13:15 Anaerobic Culture - Preliminary Foot - #1 Prevotella bivia 11/14/23 12:42 Blood Culture - Final Blood NO GROWTH AFTER 5 DAYS 11/14/23 12:37 Blood Culture - Final Blood NO GROWTH AFTER 5 DAYS 11/15/23 13:15 Gram Stain - Final Other Source Abscess Culture - Final Staphylococcus aureus Strep agalactiae - (group b)#2 A&P Assessment and plan (1) Abscess of right foot: (2) Cellulitis: Qualifiers: Laterality: right Site of cellulitis: extremity Site of cellulitis of extremity: lower extremity Qualified Code(s): L03.115 - Cellulitis of right lower limb (3) Diabetic foot ulcers: (4) Diabetic peripheral neuropathy associated with type 2 diabetes mellitus: (5) Chronic cough: (6) Reactive airway disease: (7) Osteomyelitis: Plan 53-year-old male with known diabetes mellitus, peripheral neuropathy related to diabetes, presenting with a worsening diabetic foot ulcer progressing into cellulitis and suspicion for underlying abscess. He has leukocytosis, he is febrile. He has failed recent multiple lines of oral antibiotic therapy admit patient to [facility] Blood cultures taken in the emergency room He has received vancomycin empirically, additionally add piperacillin/tazobactam for empiric coverage Vascular studies as noted above, no gross signs of obstruction or occlusion. Plan for an MRI later this afternoon to assess for underlying abscess and osteomyelitis. Plan for or debridement tomorrow To tailor antibiotic therapy based on OR cultures when available. Insulin sliding scale for diabetes mellitus N.p.o. after midnight for likely or intervention tomorrow DVT prophylaxis: Lovenox 40 Full code November 15, 2023. MRI of the foot shows osteomyelitis involving the first proximal phalanx with abnormal signals extending into the distal phalanx. Enhancement extending into the first MTP joint with small amount of edema in the head of the first metatarsal. Underlying associated cellulitis. Status post I&D of the right foot today. Cultures pending from the procedure. Continue empiric piperacillin/tazobactam and vancomycin for the same. Patient also has a past medical history of osteomyelitis of the right foot 5 years ago. Will need PICC line for 6 weeks of IV antibiotics. Will wait until 48 hours after blood cultures are negative to place PICC line. Final antibiotic choice to be based on cultures. Add oxycodone APAP orally for pain control.Check RVP given persitent cough and fever. CXR negative for PNA. November 16, 2023. Continues to have intermittent fevers. Gram stain from wound cultures taken in the ER showing 2 separate species of gram-negative rods, coag positive Staphylococcus, and group B strep. Respiratory viral panel was negative. Repeat blood cultures ordered today given fever up to 103 Fahrenheit. Additionally obtain tick panel urine analysis to assess for possibility of alternate sources of infection though primarily appears to be related to the foot abscess and osteomyelitis. Change piperacillin/tazobactam to meropenem to expand coverage for drug-resistant gram-negative organisms given that patient has been on multiple recent outpatient antibiotics, possibility of resistant organisms. Continue IV vancomycin. PICC line to be placed once fever free for 24 hours. Blood cultures so far negative to date from admission November 17, 2023. Continues to have intermittent fevers. Wound appeared to be necrosed. Plan to be taken back to the OR tomorrow for further debridement to attempt limb salvage measures. OR cultures from November 14 showing coag positive Staphylococcus, likely to be Staph aureus plus group B strep. Superficial wound cultures previously from ER with Pseudomonas aeruginosa, Serratia sp. , MSSA and group B strep. Discontinue vancomycin given Staph aureus appears to be MSSA. Continue meropenem for now, will likely plan to change to cefepime once OR cultures are finalized. Holding off on PICC as still febrile. Blood cultures thus far are negative to date from November 15 and admission.Change insulin to high-dose sliding scale November 18, 2023. Fever curve appears to be improving. Leukocytosis resolved. Plan to go back to the OR today for further debridement and wound VAC placement. Cultures from the OR now identified with MSSA and group B strep. From the ER cultures with Pseudomonas Serratia MSSA and group B strep. Discontinue meropenem, changed to cefepime 2 g IV every 8 hours which would be the anticipated antibiotic at discharge. PICC line when fever free for 24 hours. Blood culture remains negative to date. November 19, 2023. Wound VAC has minimal drainage. Cultures obtained from the OR now updated also to include Prevotella species. Add metronidazole 500 mg twice daily. Cefepime sensitivities requested from outside lab. Should isolate turned out to be sensitive to cefepime would aim to discontinue metronidazole. PICC line to be placed today as fever free for over [address] of the chest was obtained due to complaints of chronic cough over the past 2 months. It shows nonspecific tree-in-bud nodules bilaterally. Noted on exam to have posttussive wheezing. Differentials include recovery from recent viral, bacterial or atypical infection versus reactive airway disease. Patient is around lakes and water bodies as he enjoys fishing. Will additionally add on histoplasma serologies and Coccidioides serology. Recommend serial CT in 1 month to assess for resolution of infiltrates. If persisting, will likely need further evaluation with pulmonology for chronic cough. Doxycycline currently to provide empiric atypical coverage. Attestations Medical Necessity Statement*: Continue IV antibiotics, wound VAC, postop wound care Coding Level of Care Code Acute Code for Chg Fwd Diagnoses Abscess of right foot L02.611 Cellulitis L03.115 Laterality: right Site of cellulitis: extremity Site of cellulitis of extremity: lower extremity Diabetic foot ulcers E11.621; L97.509 Diabetic peripheral neuropathy associated with type 2 diabetes mellitus E11.42 Chronic cough R05.3 Reactive airway disease J45.909 Osteomyelitis M86.9
[2023-11-19] MEDS: benzonatate 100 mg Capsule PO (17:40)
[2023-11-19] MEDS: metroNIDAZOLE 500 MG Tablet PO (20:34)
[2023-11-19 20:47] LABS: Glucose Point of Care 197 mg/dL (70-110)
[2023-11-20] VITALS (9 sets, daily range): BP systolic 132–147; BP diastolic 78–85; PULSE 67–77; RESP 16–20; TEMP 36.7–37.2; O2SAT 90–98
[2023-11-20] MEDS: cefepime 2,000 MG in sodium chloride 0.9% (plus) 50 ML 100 MG IV ×3 (03:10→20:13)
[2023-11-20 03:59] LABS: Basophils # 0.1 10^3/uL (0.0-0.1); Basophils % 0.6 %; Eosinophils # 0.3 10^3/uL (0.0-0.8); Eosinophils % 2.6 %; Hematocrit 37.8 % (37-53); Lymphocytes # 2.5 10^3/uL (0.8-4.8); Lymphocytes % 22.6 %; Mean Corpuscular HGB Conc 33.3 g/dL (30-55); Mean Corpuscular Hemoglobin 29.9 pg (27-33); Mean Corpuscular Volume 89.6 fl (82-101); Mean Platelet Volume 10.2 fL (7.4-10.4); Monocytes # 0.9 10^3/uL (0.2-0.9); Monocytes % 7.7 %; Neutrophils % 65.6 %; Nucleated Red Blood Cells % 0 %; Platelet Count 254 10^3/cmm (157-399); Red Blood Count 4.22 10^6/uL (3.85-5.65); Red Cell Distribution Width 12.1 % (12.1-15.1); White Blood Count 10.99 10^3/uL (3.29-11.43)
[2023-11-20 04:20] LABS: Alanine Aminotransferase 46 U/L (0-41); Albumin Level 3.1 g/dL (3.5-5.2); Alkaline Phosphatase 114 U/L (40-130); Anion Gap 13.9 (5-19); Aspartate Amino Transferase 30 U/L (0-40); Blood Urea Nitrogen 11 mg/dL (6-20); Calcium 8.5 mg/dL (8.5-10.5); Carbon Dioxide 27 mmol/L (22-29); Chloride 100 mmol/L (98-107); Creatinine Clr Calc Pharmacy 236.0121; Globulin 3.8 g/dL (1.3-4.6); Glomerular Filtration Rate 174.6 mL/min (90-130); Glucose 149 mg/dL (65-115); Osmolality Calculated 286 mOsm/kg (285-295); Potassium 3.9 mmol/L (3.5-5.1); Sodium 137 mmol/L (136-145); Total Bilirubin 0.4 mg/dL (0.15-1.2); Total Protein 6.9 g/dL (6.6-8.7)
--- NOTE | 2023-11-20 06:21 | PC.NURSE ---
pt slept well throughout the night. no complaints of pain.
[2023-11-20 06:35] LABS: Glucose Point of Care 156 mg/dL (70-110)
--- NOTE | 2023-11-20 07:41 | PM.PN ---
Subjective Subjective: Patient seen bedside this a.m., eating breakfast when entering the room, tolerating regular diet. Denies any pain at the right foot. Accompanied by his daughter Netta who will be helping assist with his care at discharge at home. Patient denies any subjective nausea, vomiting, fever, chills, shortness of breath or chest pain. Vitals/I&O/Wt Last Vital Signs Temp 98.2 F 11/20/23 07:40 Pulse 74 11/20/23 07:40 Resp 18 11/20/23 07:40 BP 146/82 11/20/23 07:40 Pulse Ox 90 11/20/23 07:40 O2 Del Method Room Air 11/20/23 07:40 11/19/23 11/20/23 11/20/23 22:59 06:59 14:59 Intake Total 170 / 400 50 / 450 Output Total 725 / 1125 725 / 1850 Balance -555 / -725 -675 / -1400 Weight last 48 hrs Weight 259 lb 6 oz Weight 260 lb 5 oz Physical Exam Narrative: GENERAL: Patient is alert and oriented ?3 and in no acute distress. The following is a focused bilateral lower extremity exam. He is accompanied by his daughter Netta. VASCULAR: Dorsalis pedis palpable posterior tibial arteries palpable. Capillary refill time less than 3 seconds to the distal hallux bilaterally. Calf is supple and nontender proximally and distally. NEUROLOGICAL: Protective sensation intact send 10/10 sites, tested with Antonito Eliezer monofilament to bilateral feet. DERMATOLOGICAL: Wound VAC intact, upon removal of wound VAC dressing improved healthier wound base with early granulation tissue appreciated at the most proximal portion was appreciated, no pulsatile bleeding, no purulence. MUSCULOSKELETAL: Hallux valgus to the right with apex of the deformity at the hallux interphalangeal joint distal phalanx deviates laterally. Hammertoe contractures digits 2, 3, 4, 5 right foot. Ankle joint dorsiflexion is to 3 degrees beyond neutral with the right with knee extended and 5 degrees with knee flexed. Data 11/20/23 03:29 11/20/23 03:29 Micro: Microbiology 11/15/23 13:15 Anaerobic Culture - Preliminary Foot - #1 Prevotella bivia 11/14/23 12:42 Blood Culture - Final Blood NO GROWTH AFTER 5 DAYS 11/14/23 12:37 Blood Culture - Final Blood NO GROWTH AFTER 5 DAYS A&P Assessment and plan (1) Abscess of right foot: (2) Diabetic peripheral neuropathy associated with type 2 diabetes mellitus: (3) PAD (peripheral artery disease): (4) Non-pressure chronic ulcer of other part of right foot with necrosis of muscle: Plan 53-year-old diabetic male with polymicrobial diabetic foot infection, right foot status post surgical debridement x 2 and application of wound VAC. Clinical improvement appreciated at today's visit with wound VAC dressing change. Wound bed appears more viable and more viable margins with nearly resolved erythema at the right foot. Discussed options with patient consisting of partial amputation versus wound care and healing secondarily at the right foot. Given the amount of improvement appreciated at today's visit I recommended limb salvage, patient is in agreements. Risks include delayed healing, nonhealing, future infection and need for amputation down the road. Cautiously optimistic at this point that he has the opportunity to heal this, will require aggressive wound care, continued wound VAC and PICC line and home health. Discharge planning Clinical improvement appreciated right foot, no further surgical intervention indicated during this hospitalization. Nonweightbearing right foot Wound VAC with plans for wound VAC dressing change 3X weekly, plan on home health changing wound VAC twice weekly and podiatry clinic changing once weekly. Appreciate PICC line placement and antibiotic selection per Hospitalist, planning on 6 weeks of antibiotics, weekly lab draws moving forward Follow-up with Dr. Russo in podiatry clinic next week Wednesday, November 22, 2023 at 10:15 AM. Attestations Medical Necessity Statement*: Right foot abscess status post incision and drainage. Requires continued antibiotic therapy and wound care with wound VAC potentially further surgical debridement versus amputation. Coding Level of Care Code Acute Code for [employer] Diagnoses Abscess of right foot L02.611 Diabetic peripheral neuropathy associated with type 2 diabetes mellitus E11.42 PAD (peripheral artery disease) I73.9 Non-pressure chronic ulcer of other part of right foot with necrosis of muscle L97.513
[2023-11-20] MEDS: acetaminophen 325 mg Tablet 650 MG PO (08:17)
[2023-11-20] MEDS: pregabalin 75 mg Capsule PO ×2 (08:18→17:18)
[2023-11-20] MEDS: metroNIDAZOLE 500 MG Tablet PO ×3 (08:18→20:13)
[2023-11-20] MEDS: pantoprazole DR 40 mg Tablet PO (08:18)
[2023-11-20] MEDS: doxycycline 100 mg Tablet PO ×2 (08:18→17:18)
[2023-11-20] MEDS: insulin lispro 100 unit/1 mL SUBCUT ×4 (08:19→20:53)
[2023-11-20 11:11] LABS: Glucose Point of Care 191 mg/dL (70-110)
[2023-11-20] MEDS: enoxaparin 40 mg/0.4 mL Syringe SUBCUT (14:19)
[2023-11-20 16:36] LABS: Glucose Point of Care 249 mg/dL (70-110)
--- NOTE | 2023-11-20 18:12 | P.PN_ITS ---
Subjective 2 Subjective: Afebrile, feels well overall. Medications: Reviewed: Yes Vitals/I&O/Wt Last Vital Signs Temp 98.0 F 11/20/23 11:45 Pulse 74 11/20/23 13:43 Resp 16 11/20/23 13:43 BP 143/84 11/20/23 11:45 Pulse Ox 98 11/20/23 13:43 O2 Del Method Room Air 11/20/23 13:43 11/20/23 11/20/23 11/20/23 06:59 14:59 22:59 Intake Total 50 / 450 770 / 770 Output Total 725 / 1850 600 / 600 Balance -675 / -1400 170 / 170 Weight last 48 hrs Weight 117.651 kg Weight 118.076 kg Physical Exam 2 Narrative: General: No acute distress, AO x3 HEENT: PERRLA, pupils bilaterally equal and reactive, pallors not present Chest: Normal vesicular breath sounds, no added sounds, equal good air entry bilaterally CVS: S1-S2 regular, no murmurs, no tachycardia, no gallops, no rubs Abdomen: Soft, nontender, no organomegaly, bowel sounds present Neuro: No focal deficits, no facial deformity, AO x3, power 5/5 in all limbs Extremities: No edema clubbing or cyanosis, right foot wrapped in surgical dressing. VAC in place Data 11/20/23 03:29 11/20/23 03:29 Micro: Microbiology 11/15/23 13:15 Anaerobic Culture - Preliminary Foot - #1 Prevotella bivia A&P Assessment and plan (1) Abscess of right foot: (2) Cellulitis: Qualifiers: Laterality: right Site of cellulitis: extremity Site of cellulitis of extremity: lower extremity Qualified Code(s): L03.115 - Cellulitis of right lower limb (3) Diabetic foot ulcers: (4) Diabetic peripheral neuropathy associated with type 2 diabetes mellitus: (5) Chronic cough: (6) Reactive airway disease: (7) Osteomyelitis: Plan 53-year-old male with known diabetes mellitus, peripheral neuropathy related to diabetes, presenting with a worsening diabetic foot ulcer progressing into cellulitis and suspicion for underlying abscess. He has leukocytosis, he is febrile. He has failed recent multiple lines of oral antibiotic therapy admit patient to [facility] Blood cultures taken in the emergency room He has received vancomycin empirically, additionally add piperacillin/tazobactam for empiric coverage Vascular studies as noted above, no gross signs of obstruction or occlusion. Plan for an MRI later this afternoon to assess for underlying abscess and osteomyelitis. Plan for or debridement tomorrow To tailor antibiotic therapy based on OR cultures when available. Insulin sliding scale for diabetes mellitus N.p.o. after midnight for likely or intervention tomorrow DVT prophylaxis: Lovenox 40 Full code November 15, 2023. MRI of the foot shows osteomyelitis involving the first proximal phalanx with abnormal signals extending into the distal phalanx. Enhancement extending into the first MTP joint with small amount of edema in the head of the first metatarsal. Underlying associated cellulitis. Status post I&D of the right foot today. Cultures pending from the procedure. Continue empiric piperacillin/tazobactam and vancomycin for the same. Patient also has a past medical history of osteomyelitis of the right foot 5 years ago. Will need PICC line for 6 weeks of IV antibiotics. Will wait until 48 hours after blood cultures are negative to place PICC line. Final antibiotic choice to be based on cultures. Add oxycodone APAP orally for pain control.Check RVP given persitent cough and fever. CXR negative for PNA. November 16, 2023. Continues to have intermittent fevers. Gram stain from wound cultures taken in the ER showing 2 separate species of gram-negative rods, coag positive Staphylococcus, and group B strep. Respiratory viral panel was negative. Repeat blood cultures ordered today given fever up to 103 Fahrenheit. Additionally obtain tick panel urine analysis to assess for possibility of alternate sources of infection though primarily appears to be related to the foot abscess and osteomyelitis. Change piperacillin/tazobactam to meropenem to expand coverage for drug- resistant gram-negative organisms given that patient has been on multiple recent outpatient antibiotics, possibility of resistant organisms. Continue IV vancomycin. PICC line to be placed once fever free for 24 hours. Blood cultures so far negative to date from admission November 17, 2023. Continues to have intermittent fevers. Wound appeared to be necrosed. Plan to be taken back to the OR tomorrow for further debridement to attempt limb salvage measures. OR cultures from November 14 showing coag positive Staphylococcus, likely to be Staph aureus plus group B strep. Superficial wound cultures previously from ER with Pseudomonas aeruginosa, Serratia sp. , MSSA and group B strep. Discontinue vancomycin given Staph aureus appears to be MSSA. Continue meropenem for now, will likely plan to change to cefepime once OR cultures are finalized. Holding off on PICC as still febrile. Blood cultures thus far are negative to date from November 15 and admission.Change insulin to high-dose sliding scale November 18, 2023. Fever curve appears to be improving. Leukocytosis resolved. Plan to go back to the OR today for further debridement and wound VAC placement. Cultures from the OR now identified with MSSA and group B strep. From the ER cultures with Pseudomonas Serratia MSSA and group B strep. Discontinue meropenem, changed to cefepime 2 g IV every 8 hours which would be the anticipated antibiotic at discharge. PICC line when fever free for 24 hours. Blood culture remains negative to date. November 19, 2023. Wound VAC has minimal drainage. Cultures obtained from the OR now updated also to include Prevotella species. Add metronidazole 500 mg twice daily. Cefepime sensitivities requested from outside lab. Should isolate turned out to be sensitive to cefepime would aim to discontinue metronidazole. PICC line to be placed today as fever free for over [address] of the chest was obtained due to complaints of chronic cough over the past 2 months. It shows nonspecific tree-in-bud nodules bilaterally. Noted on exam to have posttussive wheezing. Differentials include recovery from recent viral, bacterial or atypical infection versus reactive airway disease. Patient is around lakes and water bodies as he enjoys fishing. Will additionally add on histoplasma serologies and Coccidioides serology. Recommend serial CT in 1 month to assess for resolution of infiltrates. If persisting, will likely need further evaluation with pulmonology for chronic cough. Doxycycline currently to provide empiric atypical coverage. November 20, 2023 PICC line placed yesterday. Wound VAC dressing changed. Wound looks to be healthy now. Patient planned to be discharged, however case management not available over the weekend. Home IV antibiotics and wound VAC needs to be arranged following which patient may be safely discharged home. Discharge antibiotics to be cefepime 2 g IV every 8 hours plus metronidazole orally 500 mg 3 times a day for 6 weeks. While on the antibiotics to obtain weekly labs including CBC CMP CRP and to be faxed over to the infectious disease clinic for review. Discussed with him results of his CT findings, nonspecific tree-in-bud nodularities to be followed up as outpatient. Doxycycline 100 mg p.o. twice daily empiric course for 7 days total. Also will trial albuterol nebulization as needed for suspicion of reactive airway disease as a cause of chronic cough. If symptomatic improvement is noted in his cough, then may need inhalers at discharge. Attestations 2 Medical Necessity Statement*: Clinically improving, needs wound VAC and home IV antibiotics to be arranged for discharge, pending disposition planning. Coding Level of Care Code Acute Code for Chg Fwd Moderate MDM includes number and complexity of problems actively addressed during encounter, amount and/or complexity of data reviewed/ordered and described risk of complication, morbidity or mortality of management as documented Diagnoses Abscess of right foot L02.611 Cellulitis L03.115 Laterality: right Site of cellulitis: extremity Site of cellulitis of extremity: lower extremity Diabetic foot ulcers E11.621; L97.509 Diabetic peripheral neuropathy associated with type 2 diabetes mellitus E11.42 Chronic cough R05.3 Reactive airway disease J45.909 Osteomyelitis M86.9
[2023-11-20 20:45] LABS: Glucose Point of Care 243 mg/dL (70-110)
[2023-11-21] VITALS (7 sets, daily range): BP systolic 116–143; BP diastolic 70–84; PULSE 71–90; RESP 16–19; TEMP 36.8–36.9; O2SAT 92–96
[2023-11-21] MEDS: cefepime 2,000 MG in sodium chloride 0.9% (plus) 50 ML 100 MG IV ×2 (03:01→12:27)
[2023-11-21 04:20] LABS: Basophils # 0.1 10^3/uL (0.0-0.1); Basophils % 0.8 %; Eosinophils # 0.3 10^3/uL (0.0-0.8); Eosinophils % 2.4 %; Hematocrit 39.5 % (37-53); Lymphocytes # 2.3 10^3/uL (0.8-4.8); Lymphocytes % 21.6 %; Mean Corpuscular HGB Conc 33.2 g/dL (30-55); Mean Corpuscular Volume 90.6 fl (82-101); Mean Platelet Volume 10.6 fL (7.4-10.4); Monocytes # 0.7 10^3/uL (0.2-0.9); Monocytes % 6.8 %; Nucleated Red Blood Cells % 0 %; Platelet Count 268 10^3/cmm (157-399); Red Blood Count 4.36 10^6/uL (3.85-5.65); Red Cell Distribution Width 12.1 % (12.1-15.1); White Blood Count 10.58 10^3/uL (3.29-11.43)
[2023-11-21 04:44] LABS: Alanine Aminotransferase 38 U/L (0-41); Alkaline Phosphatase 107 U/L (40-130); Anion Gap 13.9 (5-19); Aspartate Amino Transferase 24 U/L (0-40); Blood Urea Nitrogen 12 mg/dL (6-20); Calcium 8.6 mg/dL (8.5-10.5); Carbon Dioxide 25 mmol/L (22-29); Chloride 99 mmol/L (98-107); Creatinine Clr Calc Pharmacy 193.6416; Globulin 4.6 g/dL (1.3-4.6); Glomerular Filtration Rate 141.5 mL/min (90-130); Glucose 217 mg/dL (65-115); Osmolality Calculated 284 mOsm/kg (285-295); Potassium 3.9 mmol/L (3.5-5.1); Sodium 134 mmol/L (136-145); Total Bilirubin 0.4 mg/dL (0.15-1.2); Total Protein 7.6 g/dL (6.6-8.7)
[2023-11-21 07:19] LABS: Glucose Point of Care 211 mg/dL (70-110)
[2023-11-21 07:28] LABS: Glucose Point of Care 240 mg/dL (70-110)
[2023-11-21] MEDS: pregabalin 75 mg Capsule PO (08:43)
[2023-11-21] MEDS: doxycycline 100 mg Tablet PO (08:43)
[2023-11-21] MEDS: insulin lispro 100 unit/1 mL SUBCUT ×2 (08:43→12:27)
[2023-11-21] MEDS: metroNIDAZOLE 500 MG Tablet PO ×2 (08:43→15:28)
[2023-11-21] MEDS: pantoprazole DR 40 mg Tablet PO (08:43)
[2023-11-21 10:39] LABS: Glucose Point of Care 264 mg/dL (70-110)
--- NOTE | 2023-11-21 12:32 | PM.DCS ---
Discharge Providers Date of Admission: 11/14/23 14:28 Date of Discharge: November 21, 2023 Attending Provider at Admission: Marifer Lal MD Attending Provider at Discharge: Eileen Champion MD Primary Care Provider: Pablo Orona DO Diagnoses at Discharge Discharge Diagnosis (1) Abscess of right foot: Status: Acute (2) Cellulitis: Status: Acute Qualifiers: Laterality: right Site of cellulitis: extremity Site of cellulitis of extremity: lower extremity Qualified Code(s): L03.115 - Cellulitis of right lower limb (3) Diabetic foot ulcers: Status: Acute (4) Diabetic peripheral neuropathy associated with type 2 diabetes mellitus: Status: Acute (5) Chronic cough: Status: Chronic (6) Reactive airway disease: Status: Acute (7) Osteomyelitis: Status: Acute Reason for Visit Reason for Visit: right foot pain, ref dr lopez to Dr. franz [facility] Course Hospital Course 53-year-old male who was admitted for diabetic foot ulcer with abscess osteomyelitis of foot. Needed to go to the OR for debridement x 2, remained afebrile during hospitalization after 2 debridements. Has a wound VAC in place. Cultures showing polymicrobial diabetic foot infection. On discharge she will get cefepime 2 g IV every 8 hours for 6 weeks plus metronidazole 3 times a day 500 mg for 6 weeks as well weekly labs have been ordered. He will follow-up with Dr. Russo. Case management arranged wound VAC for home and arranged IV antibiotics at discharge. He will get senna S along opioids. I have sent refills for his insulin as well. He remained hypertensive throughout hospitalization added low-dose lisinopril 5 mg daily Patient will be considered high risk for amputation in case his wound gets worse, considering the fact he has shown significant improvement we are hoping his wound will improve and continue to heal with wound VAC and antibiotics. Next appointment with Dr. Russo is on November 21. Physical Exam Narrative: Awake and alert Foot covered with dressing Wound VAC in place GCS 15 Nonfocal neuroexam Pleasant and cooperative Discharge Data Studies Completed and Pending Completed Studies During Hospitalization Category Date Time Status CT chest wo con [id number] Routine Cat Scan 11/18/23 14:53 Completed XR chest 1V portable [id number] Routine Exams 11/19/23 13:46 Completed XR chest 1V portable [id number] Stat Exams 11/14/23 12:17 Completed XR foot RT min 3V* [id number] Stat Exams 11/14/23 12:17 Completed MR foot RT wo/w con [id number] Stat MRI 11/15/23 09:30 [place] [id number] Stat Ultrasound 11/14/23 16:44 Completed US arterial duplex lower extremity RT [CV arterial Ultrasound 11/14/23 12:17 [place] [id number]] Stat US venous duplex lower extremity RT [CV venous duplex Ultrasound 11/14/23 12:17 [place] [id number]] Stat Pending at discharge Category Date Time Status Anaerobic Culture Routine Lab 11/15/23 13:15 Results Coccidioides AB CF Serum AM LABS Lab 11/20/23 03:29 Received Histoplasma Antibody Immunodif Routine Lab 11/19/23 17:47 Received Histoplasma Quantitative AG Routine Lab 11/19/23 17:38 Ordered Miscellaneous Test Routine Lab 11/19/23 17:36 Ordered Tick Panel Routine Lab 11/16/23 11:47 Results Radiology Impressions Foot X-Ray 11/14/23 12:17 IMPRESSION: 1. No acute findings. 2. Hallux valgus deformity 2nd 3rd and 4th toe 3. Chronic bone deformity great toe Duplex Scan Lower Extremity Artery 11/14/23 16:44 IMPRESSION: Triphasic flow within the mid aspect of the right superficial femoral artery. The anterior tibial artery and right peroneal artery were not attempted. The distal posterior tibial artery and dorsalis pedis artery pressures are greater than 220. Foot MRI 11/15/23 09:30 IMPRESSION: 1. Osteomyelitis involving the first proximal phalanx with replacement of normal fatty T1 bone marrow signal extending into the distal phalanx. Enhancement extends to the first MTP joint with a small amount of edema in the head of the first metatarsal with preserved bone marrow signal. 2. Ulceration underlying the first toe with associated cellulitis. 3. Enhancing fluid and edema in the first MTP joint. 4. Hallux valgus second through fourth toes. Chest CT 11/18/23 14:53 IMPRESSION: 1. No dense area of consolidation or pneumonia. 2. Mild tree-in-bud airspace disease in the lower lobes. Typically seen with endobronchial pneumonia or aspiration. 3. No adenopathy. 4. Gynecomastia. 5. Mild splenomegaly. Chest X-Ray 11/19/23 13:46 IMPRESSION: Right upper extremity PICC tip is seen at the superior cavoatrial junction. Laboratory Results WBC 10.58 10^3/uL (3.29-11.43) 11/21/23 03:03 RBC 4.36 10^6/uL (3.85-5.65) 11/21/23 03:03 Hgb 13.10 g/dL (11.27-16.99) 11/21/23 03:03 Hct 39.5 % (37-53) 11/21/23 03:03 MCV 90.6 fl (82-101) 11/21/23 03:03 MCH 30.0 pg (27-33) 11/21/23 03:03 MCHC 33.2 g/dL (30-55) 11/21/23 03:03 RDW 12.1 % (12.1-15.1) 11/21/23 03:03 Plt Count 268 10^3/cmm (157-399) 11/21/23 03:03 MPV 10.6 fL (7.4-10.4) H 11/21/23 03:03 Neut % (Auto) 67.0 % 11/21/23 03:03 Lymph % (Auto) 21.6 % 11/21/23 03:03 Frontier % (Auto) 6.8 % 11/21/23 03:03 Eos % (Auto) 2.4 % 11/21/23 03:03 Baso % (Auto) 0.8 % 11/21/23 03:03 Neut # (Auto) 7.10 10^3/uL (1.8-7.7) 11/21/23 03:03 Lymph # (Auto) 2.3 10^3/uL (0.8-4.8) 11/21/23 03:03 Frontier # (Auto) 0.7 10^3/uL (0.2-0.9) 11/21/23 03:03 Eos # (Auto) 0.3 10^3/uL (0.0-0.8) 11/21/23 03:03 Baso # (Auto) 0.1 10^3/uL (0.0-0.1) 11/21/23 03:03 Nucleated RBC % (auto) 0 % 11/21/23 03:03 Nucleated RBCs # 0.0 /100WBC 11/21/23 03:03 ESR 20 mm/hr (0-10) H 11/14/23 12:34 Sodium 134 mmol/L (136-145) L 11/21/23 03:03 Potassium 3.9 mmol/L (3.5-5.1) 11/21/23 03:03 Chloride 99 mmol/L (98-107) 11/21/23 03:03 Carbon Dioxide 25 mmol/L (22-29) 11/21/23 03:03 Anion Gap 13.9 (5-19) 11/21/23 03:03 BUN 12 mg/dL (6-20) 11/21/23 03:03 Creatinine 0.6 mg/dL (0.7-1.2) L 11/21/23 03:03 GFR Calculation 141.5 mL/min (90-130) H 11/21/23 03:03 Glucose 217 mg/dL (65-115) H 11/21/23 03:03 POC Glucose 264 mg/dL (70-110) H 11/21/23 10:27 Calculated Osmolality 284 mOsm/kg (285-295) L 11/21/23 03:03 Lactic Acid 1.1 mmol/L (0.5-2.2) 11/14/23 12:37 Calcium 8.6 mg/dL (8.5-10.5) 11/21/23 03:03 Total Bilirubin 0.4 mg/dL (0.15-1.2) 11/21/23 03:03 AST 24 U/L (0-40) 11/21/23 03:03 ALT 38 U/L (0-41) 11/21/23 03:03 Alkaline Phosphatase 107 U/L (40-130) 11/21/23 03:03 C-Reactive Protein 231.4 mg/L (0.0-4.9) H 11/14/23 12:37 Total Protein 7.6 g/dL (6.6-8.7) 11/21/23 03:03 Albumin 3.0 g/dL (3.5-5.2) L 11/21/23 03:03 Globulin 4.6 g/dL (1.3-4.6) 11/21/23 03:03 Urine Color Yellow (Yellow) 11/16/23 21:15 Urine Appearance Clear (CLEAR) 11/16/23 21:15 Urine pH 5 (5-7) 11/16/23 21:15 Ur Specific Sherman 1.015 (1.005-1.030) 11/16/23 21:15 Urine Protein Neg (Negative) 11/16/23 21:15 Urine Glucose (UA) Norm (Normal) 11/16/23 21:15 Urine Ketones Negative (Negative) 11/16/23 21:15 Urine Blood 2+ (Negative) H 11/16/23 21:15 Urine Nitrate Negative (Negative) 11/16/23 21:15 Urine Bilirubin Neg (Negative) 11/16/23 21:15 Urine Urobilinogen 1 mg/dL (Negative) H 11/16/23 21:15 Ur Leukocyte Esterase Negative (Negative) 11/16/23 21:15 Urine RBC 0-4 /hpf (0-2) H 11/16/23 21:15 Urine WBC 0-4 /hpf (0-5) H 11/16/23 21:15 Ur Squamous Epith Cells 0-4 /hpf (0-5) H 11/16/23 21:15 Amorphous Sediment Not Reportable 11/16/23 21:15 Urine Bacteria Trace /hpf (NONE) 11/16/23 21:15 Urine Mucus Trace /hpf 11/16/23 21:15 Vancomycin Trough 15.0 ug/mL (10-15) 11/17/23 13:46 Adenovirus (PCR) Not detected (NOT DETECT) 11/15/23 14:58 Lyme Ab (Western Blot) <0.90 index 11/16/23 11:47 C. pneumoniae DNA (PCR) Not detected (NOT DETECT) 11/15/23 14:58 Coronavirus 229E (PCR) Not detected (NOT DETECT) 11/15/23 14:58 Human Metapneumovir PCR Not detected (NOT DETECT) 11/15/23 14:58 Influenza A (H1) PCR Not detected (NOT DETECT) 11/15/23 14:58 Influ A (H1/09) PCR Not detected (NOT DETECT) 11/15/23 14:58 Influenza A (H3) PCR Not detected (NOT DETECT) 11/15/23 14:58 Influenza Type A (PCR) Not detected (NOT DETECT) 11/15/23 14:58 Influenza Type B (PCR) Not detected (NOT DETECT) 11/15/23 14:58 M. pneumoniae (PCR) Not detected (NOT DETECT) 11/15/23 14:58 Parainfluenza 1 (PCR) Not detected (NOT DETECT) 11/15/23 14:58 Parainfluenza 2 (PCR) Not detected (NOT DETECT) 11/15/23 14:58 Parainfluenza 3 (PCR) Not detected (NOT DETECT) 11/15/23 14:58 Parainfluenza 4 (PCR) Not detected (NOT DETECT) 11/15/23 14:58 RSV Type A (PCR) Not detected (NOT DETECT) 11/15/23 14:58 RSV Type B (PCR) Not detected (NOT DETECT) 11/15/23 14:58 Entero/Rhino (PCR) Not detected (NOT DETECT) 11/15/23 14:58 SARS-CoV-2 (PCR) Not detected (NOT DETECT) 11/15/23 14:58 SARS-CoV-2 Ag (Rapid) negative (Negative) 11/14/23 13:19 Vitals Last Vital Signs Temp 98.5 F 11/21/23 11:38 Pulse 76 11/21/23 11:38 Resp 16 11/21/23 11:38 BP 135/81 11/21/23 11:38 Pulse Ox 93 11/21/23 11:38 O2 Del Method Room Air 11/21/23 11:38 Discharge Plan Discharge Patient Disposition: Home Condition: Stable Prescriptions: New hydrocodone-acetaminophen 5-325 mg Tablet 1 tab PO Q4H PRN (Reason: Moderate Pain) Qty: 10 0RF metronidazole 500 mg Tablet 500 mg PO TID 42 Days Qty: 126 0RF sennosides-docusate sodium [Senna-S] 8.6-50 mg tablet 1 tab-cap PO DAILY Qty: 10 0RF Continued (DME) Diabetic shoes with molded inserts See Rx Instructions .Route .MEDSUPPLY Qty: 1 0RF Rx Instructions: As directed (DME) [place] boot to the left See Rx Instructions .Route .MEDSUPPLY Qty: 1 0RF Rx Instructions: As directed by [employer] (DME) FreeStyle Lite Strips Strip See Rx Instructions .ROUTE .MEDSUPPLY Qty: 100 2RF Rx Instructions: TWICE DAILY pregabalin [Lyrica] 75 mg capsule 75 mg PO BID Qty: 60 0RF Lantus Solostar U-100 Insulin 100 unit/mL (3 mL) insulin pen 30 unit SUBCUT BID Qty: 15 10RF Discharge Orders: Discharge Order (Routine); Ordered 11/21/23 Ordered By: Eileen Champion Other Ambulatory Orders: DME: Wound Vac (Order) Location: None Selected Ordered By: Zen Russo Referrals: Nikunj Tejada DPM [Physician] - 11/22/23 10:30 am Pablo Orona DO [Primary Care Provider] - Discharge Activity: Wheelchair as instructed Patient Instructions: Acute Wound Care (DC), Negative Pressure Wound Therapy (DC), Opioid Safety, Post Anesthesia Care Activity Restrictions/Additional Instructions: Recommendations from Dr. Russo Strict nonweightbearing to the right lower extremity, elevate while resting. Utilizing a knee scooter for this. Follow-up with Dr. Russo [facility] podiatry clinic Wednesday, November 22, 2023 at 10:[address] Russo with any postoperative questions or concerns cell phone number [phone]. Discharge Attestations Time Spent in Discharge Care*: greater than 30 min Quality Metrics Clinical Quality Measures [ No reported AMI, CVA or VTE this stay] Coding Level of Care Code Acute Code for Chg Fwd Diagnoses Abscess of right foot L02.611 Cellulitis L03.115 Laterality: right Site of cellulitis: extremity Site of cellulitis of extremity: lower extremity Diabetic foot ulcers E11.621; L97.509 Diabetic peripheral neuropathy associated with type 2 diabetes mellitus E11.42 Chronic cough R05.3 Reactive airway disease J45.909 Osteomyelitis M86.9
[2023-11-21] MEDS: enoxaparin 40 mg/0.4 mL Syringe SUBCUT (15:28)
[2023-11-21 16:35] LABS: Glucose Point of Care 156 mg/dL (70-110)
--- NOTE | 2023-11-21 16:38 | PC.NURSE ---
Discharge delayed due to waiting for HOME to deliver Wound Vac and supplies.
[2023-11-21 17:24] LABS: E. Chaffeensis AB IGG <1:64; E. Chaffeensis AB IGM <1:20
[2023-11-23 17:10] LABS: RMSF IGG NOT DETECTED; RMSF IGM NOT DETECTED
[2023-11-27 20:04] LABS: Histoplasma capsulatum H Ab NEGATIVE; Histoplasma capsulatum M Ab NEGATIVE
[2023-11-27 20:19] LABS: Coccidioides AB CF Serum <1:2
== END 2023-11-21 17:15 | disposition home or self-care (01) | DRG 623 ==
LOC: ER 16:23 → MEDSURG 18:56
PROVIDERS: Podiatrist Foot & Ankle Surgery; Admitting Provider Student in an Organized Health Care Education/Training Program; Emergency Provider Emergency Medicine; PCP Internal Medicine; Visit Provider Internal Medicine
PROC: 0J9Q0ZX Drainage of Right Foot Subcutaneous Tissue and Fascia, Open Approach, Diagnostic (ICD-10-PCS; principal; 2023-11-15 12:45)
PROC: 0LBV0ZZ Excision of Right Foot Tendon, Open Approach (ICD-10-PCS; principal; 2023-11-18 11:50)
DX: E11.621 Type 2 diabetes mellitus with foot ulcer (principal); L02.611 Cutaneous abscess of right foot; L03.115 Cellulitis of right lower limb; M86.8X7 Other osteomyelitis, ankle and foot; L97.515 Non-pressure chronic ulcer of other part of right foot with muscle involvement without evidence of necrosis; B95.61 Methicillin susceptible Staphylococcus aureus infection as the cause of diseases classified elsewhere; E11.42 Type 2 diabetes mellitus with diabetic polyneuropathy; J45.909 Unspecified asthma, uncomplicated; I10 Essential (primary) hypertension; B95.1 Streptococcus, group B, as the cause of diseases classified elsewhere; B99.8 Other infectious disease; F17.200 Nicotine dependence, unspecified, uncomplicated; E11.51 Type 2 diabetes mellitus with diabetic peripheral angiopathy without gangrene; Z79.4 Long term (current) use of insulin
CPT/HCPCS: 36415; 36416; 36573; 71045; 71250; 73630; 73720; 80053; 80202; 81001; 82962; 83605; 85025; 85651; 86140; 86618; 86635; 86666; 86698; 86757; 87040; 87070; 87075; 87077; 87186; 87205; 87426; 87486; 87581; 87633; 93926; 93971; 96365; 96372; 99285; A9577; J0692; J1650; J1815; J2185; J2270; J2405; J2543; J2704; J3010; J3370; J3372; J3490; J7030; J7050

== ENCOUNTER 2023-12-21 13:15 | Oncology outpatient (recurring) (ONCR) | payer BC, SELFPAY ==
[2023-11-25 09:44] LABS: Basophils # 0.1 10^3/uL (0.0-0.1); Basophils % 0.8 %; Eosinophils # 0.2 10^3/uL (0.0-0.8); Eosinophils % 1.4 %; Hematocrit 42.2 % (37-53); Lymphocytes # 2.3 10^3/uL (0.8-4.8); Lymphocytes % 20.8 %; Mean Corpuscular HGB Conc 33.6 g/dL (30-55); Mean Platelet Volume 10.4 fL (7.4-10.4); Monocytes # 0.7 10^3/uL (0.2-0.9); Monocytes % 5.9 %; Neutrophils # 7.81 10^3/uL (1.8-7.7); Neutrophils % 70.3 %; Nucleated Red Blood Cells % 0 %; Platelet Count 348 10^3/cmm (157-399); Red Blood Count 4.74 10^6/uL (3.85-5.65); Red Cell Distribution Width 12.3 % (12.1-15.1); White Blood Count 11.11 10^3/uL (3.29-11.43)
[2023-11-25 10:06] LABS: Alanine Aminotransferase 37 U/L (0-41); Albumin Level 3.7 g/dL (3.5-5.2); Alkaline Phosphatase 101 U/L (40-130); Aspartate Amino Transferase 27 U/L (0-40); C Reactive Protein 8.2 mg/L (0.0-4.9); Globulin 5.2 g/dL (1.3-4.6); Glomerular Filtration Rate 141.5 mL/min (90-130); Total Bilirubin 0.5 mg/dL (0.15-1.2); Total Protein 8.9 g/dL (6.6-8.7)
[2023-11-30 11:36] LABS: Basophils # 0.1 10^3/uL (0.0-0.1); Eosinophils # 0.2 10^3/uL (0.0-0.8); Eosinophils % 1.6 %; Hematocrit 43.7 % (37-53); Lymphocytes # 2.3 10^3/uL (0.8-4.8); Lymphocytes % 23.6 %; Mean Corpuscular HGB Conc 33.4 g/dL (30-55); Mean Corpuscular Hemoglobin 29.8 pg (27-33); Mean Corpuscular Volume 89.2 fl (82-101); Mean Platelet Volume 10.9 fL (7.4-10.4); Monocytes # 0.7 10^3/uL (0.2-0.9); Monocytes % 6.6 %; Neutrophils # 6.62 10^3/uL (1.8-7.7); Neutrophils % 66.7 %; Nucleated Red Blood Cells % 0 %; Platelet Count 282 10^3/cmm (157-399); Red Cell Distribution Width 13.2 % (12.1-15.1); White Blood Count 9.93 10^3/uL (3.29-11.43)
[2023-11-30 11:59] LABS: Alanine Aminotransferase 21 U/L (0-41); Albumin Level 3.5 g/dL (3.5-5.2); Alkaline Phosphatase 91 U/L (40-130); Aspartate Amino Transferase 17 U/L (0-40); C Reactive Protein 3.3 mg/L (0.0-4.9); Globulin 4.3 g/dL (1.3-4.6); Glomerular Filtration Rate 174.6 mL/min (90-130); Total Bilirubin 0.4 mg/dL (0.15-1.2); Total Protein 7.8 g/dL (6.6-8.7)
[2023-12-07 11:29] VITALS: BP 118/74; PULSE 79; RESP 16; TEMP 36.5; O2SAT 97
[2023-12-07 12:29] LABS: Alanine Aminotransferase 23 U/L (0-41); Albumin Level 3.6 g/dL (3.5-5.2); Alkaline Phosphatase 98 U/L (40-130); Anion Gap 15.3 (5-19); Aspartate Amino Transferase 21 U/L (0-40); Blood Urea Nitrogen 11 mg/dL (6-20); Calcium 8.8 mg/dL (8.5-10.5); Carbon Dioxide 24 mmol/L (22-29); Chloride 99 mmol/L (98-107); Chol HDL Ratio 4.44 mg/dL (1.0-5.00); Cholesterol 120 mg/dL (0-200); Globulin 4.1 g/dL (1.3-4.6); Glomerular Filtration Rate 141.5 mL/min (90-130); Glucose 269 mg/dL (65-115); HDL Cholesterol 27 mg/dL (60-100); LDL Cholesterol Calculated 44 mg/dL (50-129); LDL HDL Ratio 1.63 RATIO (0.00-3.22); Osmolality Calculated 287 mOsm/kg (285-295); Potassium 4.3 mmol/L (3.5-5.1); Sodium 134 mmol/L (136-145); Total Bilirubin 0.4 mg/dL (0.15-1.2); Total Protein 7.7 g/dL (6.6-8.7); Triglycerides 247 mg/dL (0-150)
[2023-12-07 12:32] LABS: Estmated Average Glucose 166; Hemoglobin A1C 7.4 % (4.0-6.0)
[2023-12-07 12:33] LABS: Creatinine Urine, Random 270 mg/dL (39-259); Microalbum Creatinine Ratio Ur 19 mg/dL (0-20); Microalbumin Random Urine 5 ug/dL (0-20)
[2023-12-14 12:15] LABS: Basophils # 0.1 10^3/uL (0.0-0.1); Basophils % 0.9 %; Eosinophils # 0.3 10^3/uL (0.0-0.8); Eosinophils % 3.3 %; Hematocrit 45.2 % (37-53); Lymphocytes % 25.3 %; Mean Corpuscular HGB Conc 33.6 g/dL (30-55); Mean Corpuscular Hemoglobin 29.9 pg (27-33); Mean Platelet Volume 11.6 fL (7.4-10.4); Monocytes # 0.7 10^3/uL (0.2-0.9); Monocytes % 9.3 %; Neutrophils # 4.86 10^3/uL (1.8-7.7); Neutrophils % 61.1 %; Nucleated Red Blood Cells % 0 %; Platelet Count 137 10^3/cmm (157-399); Red Blood Count 5.08 10^6/uL (3.85-5.65); Red Cell Distribution Width 13.5 % (12.1-15.1); White Blood Count 7.95 10^3/uL (3.29-11.43)
[2023-12-14 12:23] LABS: Alanine Aminotransferase 20 U/L (0-41); Albumin Level 3.9 g/dL (3.5-5.2); Alkaline Phosphatase 82 U/L (40-130); Globulin 3.6 g/dL (1.3-4.6); Glomerular Filtration Rate 174.6 mL/min (90-130); Total Bilirubin 0.5 mg/dL (0.15-1.2); Total Protein 7.5 g/dL (6.6-8.7)
[2023-12-14 13:54] LABS: Aspartate Amino Transferase 22 U/L (0-40)
[2023-12-21 13:14] LABS: Basophils # 0.1 10^3/uL (0.0-0.1); Eosinophils # 0.2 10^3/uL (0.0-0.8); Eosinophils % 2.5 %; Hematocrit 43.9 % (37-53); Lymphocytes # 1.8 10^3/uL (0.8-4.8); Lymphocytes % 30.3 %; Mean Corpuscular HGB Conc 33.7 g/dL (30-55); Mean Corpuscular Hemoglobin 29.9 pg (27-33); Mean Corpuscular Volume 88.7 fl (82-101); Mean Platelet Volume 10.9 fL (7.4-10.4); Monocytes # 0.6 10^3/uL (0.2-0.9); Monocytes % 9.5 %; Neutrophils # 3.39 10^3/uL (1.8-7.7); Neutrophils % 56.5 %; Nucleated Red Blood Cells % 0 %; Platelet Count 144 10^3/cmm (157-399); Red Blood Count 4.95 10^6/uL (3.85-5.65); Red Cell Distribution Width 13.8 % (12.1-15.1)
[2023-12-21 13:28] LABS: Alanine Aminotransferase 19 U/L (0-41); Alkaline Phosphatase 78 U/L (40-130); Aspartate Amino Transferase 19 U/L (0-40); Globulin 3.4 g/dL (1.3-4.6); Glomerular Filtration Rate 174.6 mL/min (90-130); Total Bilirubin 0.4 mg/dL (0.15-1.2); Total Protein 7.4 g/dL (6.6-8.7)
== END 2023-12-24 23:59 | disposition home or self-care (01) ==
PROVIDERS: Internal Medicine; Student in an Organized Health Care Education/Training Program; PCP Internal Medicine; Visit Provider Internal Medicine Medical Oncology
DX: Z53.9 Procedure and treatment not carried out, unspecified reason (principal); M86.9 Osteomyelitis, unspecified; Z45.2 Encounter for adjustment and management of vascular access device
CPT/HCPCS: 36592; 80053; 80061; 80076; 82044; 82565; 83036; 85025; 86140

== ENCOUNTER 2024-01-04 10:45 | Oncology outpatient (recurring) (ONCR) | payer BC, SELFPAY ==
[2023-12-28 11:17] LABS: Basophils # 0.1 10^3/uL (0.0-0.1); Basophils % 1.1 %; Eosinophils # 0.2 10^3/uL (0.0-0.8); Eosinophils % 2.8 %; Hematocrit 44.9 % (37-53); Lymphocytes # 1.5 10^3/uL (0.8-4.8); Lymphocytes % 27.2 %; Mean Corpuscular HGB Conc 33.6 g/dL (30-55); Mean Corpuscular Hemoglobin 30.3 pg (27-33); Mean Platelet Volume 10.6 fL (7.4-10.4); Monocytes # 0.6 10^3/uL (0.2-0.9); Monocytes % 11.2 %; Neutrophils # 3.08 10^3/uL (1.8-7.7); Neutrophils % 57.5 %; Nucleated Red Blood Cells % 0 %; Platelet Count 172 10^3/cmm (157-399); Red Blood Count 4.99 10^6/uL (3.85-5.65); Red Cell Distribution Width 13.9 % (12.1-15.1); White Blood Count 5.36 10^3/uL (3.29-11.43)
[2023-12-28 11:30] LABS: Alanine Aminotransferase 15 U/L (0-41); Alkaline Phosphatase 79 U/L (40-130); Aspartate Amino Transferase 17 U/L (0-40); Globulin 3.3 g/dL (1.3-4.6); Glomerular Filtration Rate 141.5 mL/min (90-130); Total Bilirubin 0.5 mg/dL (0.15-1.2); Total Protein 7.3 g/dL (6.6-8.7)
[2024-01-04 11:23] LABS: Basophils # 0.1 10^3/uL (0.0-0.1); Eosinophils # 0.2 10^3/uL (0.0-0.8); Eosinophils % 3.1 %; Hematocrit 43.7 % (37-53); Lymphocytes # 1.7 10^3/uL (0.8-4.8); Lymphocytes % 28.6 %; Mean Corpuscular HGB Conc 34.1 g/dL (30-55); Mean Corpuscular Hemoglobin 29.9 pg (27-33); Mean Corpuscular Volume 87.6 fl (82-101); Mean Platelet Volume 10.6 fL (7.4-10.4); Monocytes # 0.8 10^3/uL (0.2-0.9); Neutrophils # 3.11 10^3/uL (1.8-7.7); Neutrophils % 54.1 %; Nucleated Red Blood Cells % 0 %; Platelet Count 201 10^3/cmm (157-399); Red Blood Count 4.99 10^6/uL (3.85-5.65); White Blood Count 5.76 10^3/uL (3.29-11.43)
[2024-01-04 11:45] LABS: Alanine Aminotransferase 14 U/L (0-41); Albumin Level 3.9 g/dL (3.5-5.2); Alkaline Phosphatase 83 U/L (40-130); Aspartate Amino Transferase 16 U/L (0-40); C Reactive Protein 4.1 mg/L (0.0-4.9); Globulin 3.6 g/dL (1.3-4.6); Glomerular Filtration Rate 141.5 mL/min (90-130); Total Bilirubin 0.5 mg/dL (0.15-1.2); Total Protein 7.5 g/dL (6.6-8.7)
== END 2024-01-23 23:59 | disposition home or self-care (01) ==
PROVIDERS: Student in an Organized Health Care Education/Training Program; PCP Internal Medicine; Visit Provider Internal Medicine Medical Oncology
DX: Z53.9 Procedure and treatment not carried out, unspecified reason; M86.9 Osteomyelitis, unspecified
CPT/HCPCS: 36592; 80076; 82565; 85025; 86140

== ENCOUNTER → 2024-01-16 11:20 | Outpatient (BNVA) | payer BC, SELFPAY | PROVIDERS: PCP Internal Medicine; Visit Provider Thoracic Surgery (Cardiothoracic Vascular Surgery) | DX: E11.621 Type 2 diabetes mellitus with foot ulcer (principal); L97.509 Non-pressure chronic ulcer of other part of unspecified foot with unspecified severity; R52 Pain, unspecified | CPT/HCPCS: 87070; 87077; 87176; 87186; 87205 ==

== ENCOUNTER → 2024-03-16 14:33 | Outpatient (BNVA) | payer BC, SELFPAY | PROVIDERS: PCP Internal Medicine; Visit Provider Podiatrist Foot & Ankle Surgery | DX: E11.621 Type 2 diabetes mellitus with foot ulcer; L97.524 Non-pressure chronic ulcer of other part of left foot with necrosis of bone; Z01.818 Encounter for other preprocedural examination; E11.69 Type 2 diabetes mellitus with other specified complication; M24.572 Contracture, left ankle; Z79.4 Long term (current) use of insulin | CPT/HCPCS: 73630 ==

== ENCOUNTER 2024-03-30 10:13 | Day surgery (SDC) | payer BC, SELFPAY ==
[2024-03-30] VITALS (8 sets, daily range): BP systolic 99–127; BP diastolic 70–89; PULSE 83–98; RESP 15–18; TEMP 36.1–36.3; O2SAT 94–99; BMI 31.4
--- NOTE | 2024-03-30 11:23 | W.PM.OPSUD ---
Surgery/Procedure H&P Update DATE OF PROCEDURE: March 30, 2024 DATE H&P PERFORMED: 03/16/24 H&P UPDATE INFORMATION: I have reviewed H&P completed within last 30 days, I have examined patient prior to procedure, No changes to prior documentation and H&P is in [facility] EMR on date indicated PREOP DIAGNOSIS: Osteomyelitis right foot PLANNED PROCEDURE: Operation Date: 03/30/24 11:55 Proposed Procedures p Amputation Transmetatarsal(Right) - Zen Russo DPM s Achilles tendon lengthening and Pedicle skin flap right foot(Right) - Zen Russo DPM
[2024-03-30] MEDS: sodium chloride 0.9% 1,000 ML 30 ML IV (11:26)
[2024-03-30 11:30] LABS: Glucose Point of Care 260 mg/dL (70-110)
[2024-03-30] MEDS: insulin regular-human 100 units/1 mL 5 UNIT IVP (11:36)
[2024-03-30] MEDS: ceFAZolin 2,000 mg SDV 2000 MG IVP (11:44)
--- NOTE | 2024-03-30 11:44 | ANES.PREANE2 ---
Pre-Anesthetic Assessment Height/Weight: Height 6 ft 2 in Weight 245 lb Temp Pulse Resp BP Pulse Ox O2 Del Method 97.4 F L 98 16 116/79 98 Room Air 03/30/24 11:06 03/30/24 11:06 03/30/24 11:06 03/30/24 11:06 03/30/24 11:06 03/30/24 11:06 Preop Diagnosis: Osteomyelitis right foot Operation Date: 03/30/24 11:55 Proposed Procedures p Amputation Transmetatarsal(Right) - Zen Russo DPM s Achilles tendon lengthening and Pedicle skin flap right foot(Right) - VITO RoachM Was Beta Karena taken within 24 hours: N/A Last intake: Intake Last Liquid Date 03/29/24 Last Liquid Time 21:00 Last Solid Date 03/29/24 Last Solid Time 20:00 Social No alcohol and No tobacco Exam alert, oriented x 3, clear to auscultation bilaterally and regular rate & rhythm Airway Submandibular: within normal limits Cervical ROM: within normal limits Mallampati: Class III Dentition: full Comments: Comments: Poor dentition, denies any loose teeth Anesthetic Plan ASA status: 3 Anesthesia: MAC Other: No prior issues with anesthesia NPO since yesterday History of uncontrolled diabetes, preop BS 260 Denies any cardiac issues METs greater than 4 Plan for MAC anesthetic with local via surgeon Medications/Allergies Home Medications Medication Instructions Recorded Confirmed Last Taken Type blood sugar diagnostic (FreeStyle #100 ea 11/16/19 03/16/24 Unknown Rx Lite Strips) Diabetic shoes with molded inserts #1 ea 03/18/20 03/16/24 Unknown Rx insulin glargine 100 unit/mL (3 30 unit (0.3 mL) SUBCUT BID #15 mL 11/21/23 03/30/24 03/29/24 Rx mL) subcutaneous pen (Lantus Solostar U-100 Insulin) insulin glargine-yfgn 100 unit/mL 30 unit SUBCUT BID 03/16/24 03/30/24 03/29/24 History (3 mL) subcutaneous pen (Semglee (insulin glargine-yfgn) Pen) hydrocodone 5 mg-acetaminophen 325 1 tab PO Q6H PRN pain 7 days #20 03/29/24 Unknown Rx mg tablet tabs Allergies Allergy/AdvReac Type Severity Reaction Status Date / Time No Known Allergies Allergy Verified 03/16/24 11:40 Current Medications Generic Name Dose Route Start Last Admin Trade Name Ebony PRN Reason Stop Dose Admin Sodium Chloride 1,000 mls @ 30 mls/hr 03/30/24 11:00 03/30/24 11:26 Sodium Chloride 0.9% IV 03/31/24 10:59 30 mls/hr .Q24H OZZY Administration PFSH Anesthesia Medical History Reactive airway disease Chronic cough Non-pressure chronic ulcer of other part of right foot with necrosis of muscle Osteomyelitis Abscess of right foot Ulcer of right foot with fat layer exposed Cellulitis Diabetic peripheral neuropathy associated with type 2 diabetes mellitus Diabetic foot ulcers Type 2 diabetes mellitus with foot ulcer Type 2 diabetes mellitus, without long-term current use of insulin Dyslipidemia Splenomegaly PAD (peripheral artery disease) Diabetic foot ulcer Surgical History S/P hernia repair Family History Other Cancer Diabetes Hypertension Social History Smoking and tobacco/nicotine status: never used tobacco/nicotine Alcohol intake: never Substance/Drug Use: never Data Anesthesia Cardiac Studies: No Data to Display
[2024-03-30] MEDS: BUPivacaine 0.5% INJ 30 mL INJECTION (12:03)
[2024-03-30] MEDS: lidocaine 1% 10 ML INJ 20 ML XX (12:03)
--- NOTE | 2024-03-30 12:56 | P.OP_ITS ---
Operative Report Date of procedure: March 30, 2024 Pre-op diagnosis: Type 2 diabetes mellitus with other specified complication, without long-term current use of insulin E11.69 Diabetes mellitus complication status: with other specified complication Equinus contracture of left ankle M24.572 Non-pressure chronic ulcer of other part of left foot with necrosis of bone L97.524 Post-op diagnosis: Type 2 diabetes mellitus with other specified complication, without long-term current use of insulin E11.69 Diabetes mellitus complication status: with other specified complication Equinus contracture of left ankle M24.572 Non-pressure chronic ulcer of other part of left foot with necrosis of bone L97.524 Procedure done: 1) right transmetatarsal amputation.? CPT code 61831 2) right Achilles tendon lengthening.? CPT code 93431 3) pedicle skin flap right foot.? CPT code 17547 Implants: 2-0 Vicryl, 3-0 nylon, skin frantz Specimens removed/disposition: None Pathology: Right forefoot sent to pathology for permanent Surgeon: Zen Russo DPM Distribution Specialist: Radha Estimated blood loss: 400 44 IV fluids: See intraoperative documentation Urine output: None Complications: None Brief History: 53-year-old male with a history of chronic osteomyelitis presenting with a non- healing wound on the great toe and limited ankle dorsiflexion. The chronic infection is low-grade, with no systemic signs of acute infection. Physical symptoms include limited dorsiflexion contributing to excessive forefoot pressure. The infection's persistence suggests reparative interventions are necessary beyond conservative wound care. Patient examined and evaluated, findings and treatment options were discussed with patient at length. The chronic nature and persistence of osteomyelitis in the patient's great toe necessitate surgical intervention, considering the inadequate response to wound care and antibiotics. The recommendation for Achilles tendon lengthening stems from its potential to relieve forefoot pressure exacerbated by limited dorsiflexion, promoting better wound healing. Surgical intervention aims to resect infected bone areas to prevent further erosion and improve foot stability. Risks involve potential pressure redistribution, requiring careful post-surgical monitoring. Recovery and wound healing will be closely tracked, with surgical options informed by the extent of infection and structural compromise. Planning on right Achilles lengthening, right transmetatarsal amputation, pedicle skin flap to cover any residual wound after the amputation. I reviewed at length with the patient, the risks, potential complications, benefits, alternatives, expectations, and typical outcomes associated with the surgery. The risks and potential complications were explained in detail, including but not limited to infection, wound dehiscence or soft tissue complications, bleeding and hematoma, chronic edema, neuritis or nerve damage producing numbness or chronic pain, CRPS, failure to relieve pain or worsening pain, thick / painful / unsightly scar, limited motion / stiffness, malposition, delayed union, malunion, or nonunion, fracture, reaction to implants, anesthetic complications, venous thromboembolism, and deformity recurrence. I discussed the notion of no regrets with the patient as it pertains to complications and outcomes. The patient seemed to understand the nature of the proposed care and required convalescence. They asked appropriate questions, answered to their satisfaction. They are aware no guarantees can be made as to a satisfactory outcome and they understand there may be other possible unforeseen complications or outcomes not listed here that will be treated accordingly if they arise. There were no written or implied guarantees given to the patient. They gave informed consent to proceed. Procedure: Under mild sedation the patient was brought to the operating room and remained on the gurney in supine position. A timeout was performed. Anesthesia was then administered by the anesthesia service. Local anesthesia was injected by myself consisting of 20 cc of one-to-one mixture 1% lidocaine and 0.5% Marcaine plain and a 5 point right ankle block and 10 cc in a V-block fashion to the proximal portion of the right Achilles tendon/posterior leg. A well-padded pneumatic tourniquet applied right high calf. Right lower extremity was elevated and tourniquet inflated to 250 mmHg. Attention was directed to the right posterior heel where 1.5 cm proximal to the insertion of the Achilles tendon a medial hemisection was performed percutaneously with a 15 blade of the Achilles and 1.5 cm proximal to this a lateral hemisection was performed to the Achilles tendon with a 15 blade and 1.5 cm today as a medial Sel[place] section was performed of the Achilles tendon with a 15 blade. All 3 percutaneous incisions were irrigated and closed with 4-0 nylon. These were then covered with an OpSite Attention was directed to the right forefoot where a fishmouth incision was pe rformed from lateral to medial across the right foot, was unable to form a traditional fishmouth this was modified to allow for a pedicle skin flap from the great toe that would serve as a skin flap to provide closure after wound excision that extended under the first metatarsal. Full-thickness medical skin flap was incised and shaped for transfer and confirmed good vascular skin bleeding margins with tourniquet down. This was then left for placement later in the procedure. Attention was then directed to the metatarsal parabola where a transmetatarsal amputation performed from medial to lateral with appropriate beveling and maintaining metatarsal parabola with a sagittal saw, the right forefoot was amputated and passed from the operative field to be sent to pathology for permanent. Extensor and flexor tendons transected under traction at the most proximal margin all bleeders were ligated and cauterized as necessary. Skin flap was fashioned and remaining for additional transmetatarsal potation incision was approximated utilizing 2-0 Vicryl, skin reapproximated utilizing accommodation of skin frantz and 3-0 nylon. Incision was then dressed with Xeroform, 4 x 4 gauze, Kerlix, ABD pads followed by application of a well-padded multilayer compressive posterior splint with stirrup. Patient tolerated the procedure and anesthesia well and was transferred to the PACU with vital signs stable and vascular status intact. Following a period of postoperative monitoring patient will be discharged home without home corrections and scheduled follow-up he is advised to remain strict nonweightbearing.
--- NOTE | 2024-03-31 14:14 | ANE.PACU2 ---
Inpatient post-anesthesia follow up: Airway intact: Yes Vital signs: Temperature 97.2 F Pulse Rate 87 Respiratory Rate 18 Blood Pressure 122/89 Pulse Oximetry 97 Oxygen Delivery Me thod Room Air Oxygen Flow Rate 10 Fraction of Inspir ed Oxygen Hydration adequate: Yes Nausea and vomiting: No Pain level: 1 Mental status: Baseline
== END 2024-03-30 14:14 | disposition home or self-care (01) ==
PROVIDERS: PCP Physician Assistant; Visit Provider Podiatrist Foot & Ankle Surgery
PROC: (CPT 28805; principal; 2024-03-30 11:55)
PROC: (CPT 28261; 2024-03-30 11:55)
DX: L97.524 Non-pressure chronic ulcer of other part of left foot with necrosis of bone (principal); M24.572 Contracture, left ankle; E11.69 Type 2 diabetes mellitus with other specified complication; E11.621 Type 2 diabetes mellitus with foot ulcer; Z79.4 Long term (current) use of insulin; E11.42 Type 2 diabetes mellitus with diabetic polyneuropathy; E78.5 Hyperlipidemia, unspecified
CPT/HCPCS: 28805; 15574; 27685; 36416; 82962; 88305; 88311; J0690; J1815; J2704; J3010; J3490; J7030

== ENCOUNTER → 2024-04-12 13:58 | Outpatient (BNVA) | payer BC, SELFPAY | PROVIDERS: PCP Physician Assistant; Visit Provider Podiatrist Foot & Ankle Surgery | DX: Z98.890 Other specified postprocedural states (principal) | CPT/HCPCS: 87070; 87075; 87205 ==

== ENCOUNTER 2024-04-16 11:27 | Outpatient (CLI) | payer BC, SELFPAY ==
[2024-04-16 12:18] LABS: Basophils # 0.1 10^3/uL (0.0-0.1); Basophils % 1.1 %; Eosinophils # 0.3 10^3/uL (0.0-0.8); Eosinophils % 3.5 %; Hematocrit 41.9 % (37-53); Lymphocytes # 0.9 10^3/uL (0.8-4.8); Lymphocytes % 12.2 %; Mean Corpuscular HGB Conc 32.7 g/dL (30-55); Mean Corpuscular Hemoglobin 29.1 pg (27-33); Mean Corpuscular Volume 89.1 fl (82-101); Mean Platelet Volume 9.9 fL (7.4-10.4); Monocytes # 0.5 10^3/uL (0.2-0.9); Monocytes % 6.9 %; Neutrophils # 5.35 10^3/uL (1.8-7.7); Neutrophils % 75.7 %; Nucleated Red Blood Cells % 0 %; Platelet Count 288 10^3/cmm (157-399); Red Cell Distribution Width 12.8 % (12.1-15.1); White Blood Count 7.07 10^3/uL (3.29-11.43)
[2024-04-16 12:22] LABS: Erythrocyte Sedimentation Rate 36 mm/hr (0-10)
[2024-04-16 12:43] LABS: Estmated Average Glucose 192; Hemoglobin A1C 8.3 % (4.0-6.0)
[2024-04-16 12:46] LABS: Creatinine Urine, Random 288 mg/dL (39-259); Microalbum Creatinine Ratio Ur 7 mg/dL (0-20); Microalbumin Random Urine 2 ug/dL (0-20)
[2024-04-16 13:07] LABS: Alanine Aminotransferase 13 U/L (0-41); Albumin Level 3.6 g/dL (3.5-5.2); Alkaline Phosphatase 111 U/L (40-130); Anion Gap 13.5 (5-19); Aspartate Amino Transferase 13 U/L (0-40); Blood Urea Nitrogen 9 mg/dL (6-20); Calcium 9.1 mg/dL (8.5-10.5); Carbon Dioxide 27 mmol/L (22-29); Chloride 96 mmol/L (98-107); Chol HDL Ratio 3.76 mg/dL (1.0-5.00); Cholesterol 94 mg/dL (0-200); Globulin 4.6 g/dL (1.3-4.6); Glomerular Filtration Rate 101.1 mL/min (90-130); Glucose 295 mg/dL (65-115); HDL Cholesterol 25 mg/dL (60-100); LDL Cholesterol Calculated 32 mg/dL (50-129); LDL HDL Ratio 1.28 RATIO (0.00-3.22); Osmolality Calculated 284 mOsm/kg (285-295); Potassium 4.5 mmol/L (3.5-5.1); Sodium 132 mmol/L (136-145); Total Bilirubin 0.5 mg/dL (0.15-1.2); Total Protein 8.2 g/dL (6.6-8.7); Triglycerides 185 mg/dL (0-150)
== END 2024-04-16 11:28 | disposition home or self-care (01) ==
LOC: LAB 11:28
PROVIDERS: Internal Medicine; PCP Physician Assistant; Visit Provider Podiatrist Foot & Ankle Surgery
DX: L97.524 Non-pressure chronic ulcer of other part of left foot with necrosis of bone (principal); E11.69 Type 2 diabetes mellitus with other specified complication; E78.5 Hyperlipidemia, unspecified
CPT/HCPCS: 36415; 80053; 80061; 82044; 83036; 85025; 85651; 86140

== ENCOUNTER → 2024-04-30 11:33 | Outpatient (BNVA) | payer BC, SELFPAY | PROVIDERS: PCP Physician Assistant; Visit Provider Podiatrist Foot & Ankle Surgery | DX: T87.81 Dehiscence of amputation stump (principal); Z98.890 Other specified postprocedural states; Y83.8 Other surgical procedures as the cause of abnormal reaction of the patient, or of later complication, without mention of misadventure at the time of the procedure; E11.69 Type 2 diabetes mellitus with other specified complication; E78.5 Hyperlipidemia, unspecified; E11.621 Type 2 diabetes mellitus with foot ulcer; L97.513 Non-pressure chronic ulcer of other part of right foot with necrosis of muscle; Z79.4 Long term (current) use of insulin | CPT/HCPCS: 73630 ==

== ENCOUNTER 2024-05-14 12:17 | Outpatient (CLI) | payer BC, SELFPAY | END 2024-05-14 12:18 | disposition home or self-care (01) | LOC: SPT 12:18 | PROVIDERS: PCP Physician Assistant; Visit Provider Podiatrist Foot & Ankle Surgery | DX: Z47.89 Encounter for other orthopedic aftercare (principal) | CPT/HCPCS: L4361 ==

== ENCOUNTER 2024-05-24 10:30 | Oncology outpatient (recurring) (ONCR) | payer BC, SELFPAY ==
[2024-05-01 11:27] LABS: Basophils # 0.1 10^3/uL (0.0-0.1); Basophils % 1.3 %; Eosinophils # 0.1 10^3/uL (0.0-0.8); Hematocrit 39.3 % (37-53); Lymphocytes # 2.5 10^3/uL (0.8-4.8); Lymphocytes % 35.6 %; Mean Corpuscular HGB Conc 32.3 g/dL (30-55); Mean Corpuscular Hemoglobin 28.3 pg (27-33); Mean Corpuscular Volume 87.7 fl (82-101); Mean Platelet Volume 10.2 fL (7.4-10.4); Monocytes # 0.4 10^3/uL (0.2-0.9); Monocytes % 6.1 %; Neutrophils # 3.86 10^3/uL (1.8-7.7); Neutrophils % 54.6 %; Nucleated Red Blood Cells % 0 %; Platelet Count 260 10^3/cmm (157-399); Red Blood Count 4.48 10^6/uL (3.85-5.65); Red Cell Distribution Width 14.3 % (12.1-15.1); White Blood Count 7.07 10^3/uL (3.29-11.43)
[2024-05-01 11:50] LABS: Alanine Aminotransferase 14 U/L (0-41); Albumin Level 3.8 g/dL (3.5-5.2); Alkaline Phosphatase 98 U/L (40-130); Anion Gap 15.4 (5-19); Aspartate Amino Transferase 14 U/L (0-40); Blood Urea Nitrogen 9 mg/dL (6-20); Carbon Dioxide 27 mmol/L (22-29); Chloride 99 mmol/L (98-107); Globulin 3.8 g/dL (1.3-4.6); Glomerular Filtration Rate 140.9 mL/min (90-130); Glucose 224 mg/dL (65-115); Osmolality Calculated 290 mOsm/kg (285-295); Potassium 4.4 mmol/L (3.5-5.1); Sodium 137 mmol/L (136-145); Total Bilirubin 0.4 mg/dL (0.15-1.2); Total Protein 7.6 g/dL (6.6-8.7)
[2024-05-02 10:17] LABS: Erythrocyte Sedimentation Rate 45 mm/hr (0-10)
[2024-05-08 11:28] LABS: Basophils # 0.1 10^3/uL (0.0-0.1); Eosinophils # 0.1 10^3/uL (0.0-0.8); Eosinophils % 2.4 %; Hematocrit 40.3 % (37-53); Mean Corpuscular HGB Conc 32.8 g/dL (30-55); Mean Corpuscular Hemoglobin 28.5 pg (27-33); Mean Platelet Volume 10.1 fL (7.4-10.4); Monocytes # 0.4 10^3/uL (0.2-0.9); Monocytes % 6.6 %; Neutrophils # 3.14 10^3/uL (1.8-7.7); Neutrophils % 54.7 %; Nucleated Red Blood Cells % 0 %; Platelet Count 201 10^3/cmm (157-399); Red Blood Count 4.63 10^6/uL (3.85-5.65); Red Cell Distribution Width 13.9 % (12.1-15.1); White Blood Count 5.75 10^3/uL (3.29-11.43)
[2024-05-08 11:32] LABS: Erythrocyte Sedimentation Rate 18 mm/hr (0-10)
[2024-05-08 11:52] LABS: Alanine Aminotransferase 20 U/L (0-41); Albumin Level 3.6 g/dL (3.5-5.2); Alkaline Phosphatase 109 U/L (40-130); Anion Gap 13.1 (5-19); Aspartate Amino Transferase 20 U/L (0-40); Blood Urea Nitrogen 8 mg/dL (6-20); Carbon Dioxide 25 mmol/L (22-29); Chloride 100 mmol/L (98-107); Globulin 3.7 g/dL (1.3-4.6); Glomerular Filtration Rate 140.9 mL/min (90-130); Glucose 207 mg/dL (65-115); Osmolality Calculated 282 mOsm/kg (285-295); Potassium 4.1 mmol/L (3.5-5.1); Sodium 134 mmol/L (136-145); Total Bilirubin 0.3 mg/dL (0.15-1.2); Total Protein 7.3 g/dL (6.6-8.7)
[2024-05-17 15:08] VITALS: BP 123/84; PULSE 81; RESP 17; TEMP 36.3; O2SAT 98
[2024-05-17 15:48] LABS: Basophils # 0.1 10^3/uL (0.0-0.1); Basophils % 1.1 %; Eosinophils # 0.2 10^3/uL (0.0-0.8); Eosinophils % 2.7 %; Hematocrit 43.8 % (37-53); Lymphocytes # 2.7 10^3/uL (0.8-4.8); Mean Corpuscular HGB Conc 33.8 g/dL (30-55); Mean Corpuscular Hemoglobin 29.2 pg (27-33); Mean Corpuscular Volume 86.6 fl (82-101); Mean Platelet Volume 10.9 fL (7.4-10.4); Monocytes # 0.5 10^3/uL (0.2-0.9); Monocytes % 6.5 %; Neutrophils # 3.63 10^3/uL (1.8-7.7); Neutrophils % 51.4 %; Nucleated Red Blood Cells % 0 %; Platelet Count 180 10^3/cmm (157-399); Red Blood Count 5.06 10^6/uL (3.85-5.65); Red Cell Distribution Width 13.5 % (12.1-15.1); White Blood Count 7.06 10^3/uL (3.29-11.43)
[2024-05-17 16:00] LABS: Erythrocyte Sedimentation Rate 14 mm/hr (0-10)
[2024-05-17 16:03] LABS: Alanine Aminotransferase 17 U/L (0-41); Albumin Level 4.1 g/dL (3.5-5.2); Alkaline Phosphatase 116 U/L (40-130); Aspartate Amino Transferase 16 U/L (0-40); Blood Urea Nitrogen 12 mg/dL (6-20); Calcium 9.6 mg/dL (8.5-10.5); Carbon Dioxide 28 mmol/L (22-29); Chloride 99 mmol/L (98-107); Globulin 3.8 g/dL (1.3-4.6); Glomerular Filtration Rate 173.9 mL/min (90-130); Glucose 224 mg/dL (65-115); Osmolality Calculated 291 mOsm/kg (285-295); Sodium 137 mmol/L (136-145); Total Bilirubin 0.3 mg/dL (0.15-1.2); Total Protein 7.9 g/dL (6.6-8.7)
[2024-05-17 16:05] LABS: Anion Gap 14.3 (5-19); Potassium 4.3 mmol/L (3.5-5.1)
[2024-05-24 12:48] LABS: Basophils # 0.1 10^3/uL (0.0-0.1); Basophils % 0.9 %; Eosinophils # 0.2 10^3/uL (0.0-0.8); Eosinophils % 2.2 %; Hematocrit 44.6 % (37-53); Lymphocytes # 2.7 10^3/uL (0.8-4.8); Lymphocytes % 34.9 %; Mean Corpuscular HGB Conc 33.2 g/dL (30-55); Mean Corpuscular Hemoglobin 28.1 pg (27-33); Mean Corpuscular Volume 84.6 fl (82-101); Mean Platelet Volume 10.4 fL (7.4-10.4); Monocytes # 0.6 10^3/uL (0.2-0.9); Monocytes % 7.2 %; Neutrophils # 4.27 10^3/uL (1.8-7.7); Neutrophils % 54.5 %; Nucleated Red Blood Cells % 0 %; Platelet Count 169 10^3/cmm (157-399); Red Blood Count 5.27 10^6/uL (3.85-5.65); Red Cell Distribution Width 13.2 % (12.1-15.1); White Blood Count 7.82 10^3/uL (3.29-11.43)
[2024-05-24 12:57] LABS: Erythrocyte Sedimentation Rate 17 mm/hr (0-10)
[2024-05-24 13:06] LABS: Alanine Aminotransferase 18 U/L (0-41); Albumin Level 3.9 g/dL (3.5-5.2); Alkaline Phosphatase 101 U/L (40-130); Anion Gap 12.5 (5-19); Aspartate Amino Transferase 17 U/L (0-40); Blood Urea Nitrogen 9 mg/dL (6-20); Calcium 9.1 mg/dL (8.5-10.5); Carbon Dioxide 27 mmol/L (22-29); Chloride 99 mmol/L (98-107); Globulin 3.6 g/dL (1.3-4.6); Glomerular Filtration Rate 140.9 mL/min (90-130); Glucose 184 mg/dL (65-115); Osmolality Calculated 281 mOsm/kg (285-295); Potassium 4.5 mmol/L (3.5-5.1); Sodium 134 mmol/L (136-145); Total Bilirubin 0.4 mg/dL (0.15-1.2); Total Protein 7.5 g/dL (6.6-8.7)
== END 2024-05-25 23:59 | disposition home or self-care (01) ==
PROVIDERS: Internal Medicine; Podiatrist Foot & Ankle Surgery; PCP Internal Medicine; Visit Provider Internal Medicine Medical Oncology
DX: Z53.9 Procedure and treatment not carried out, unspecified reason; L97.524 Non-pressure chronic ulcer of other part of left foot with necrosis of bone
CPT/HCPCS: 36415; 36592; 73630; 80053; 85025; 85651; 86140; J2997

== ENCOUNTER 2024-06-08 11:24 | Day surgery (SDC) | payer BC, SELFPAY ==
--- NOTE | 2024-06-08 11:03 | ANES.PREANE2 ---
Pre-Anesthetic Assessment Height/Weight: Height 6 ft 2 in Preop Diagnosis: foot ulcer Operation Date: 06/08/24 13:00 Proposed Procedures p Incision and debridement right foot(Right) - Zen Russo DPM Was Beta Karena taken within 24 hours: N/A Was Clonidine taken within 24 hours: N/A Social Tobacco and No alcohol Chews tobacco Exam alert, oriented x 3, clear to auscultation bilaterally and regular rate & rhythm Airway Submandibular: within normal limits Cervical ROM: within normal limits Mallampati: Class II Dentition: full Comments: Comments: Very poor dentition, few missing teeth. Denies any loose. Large rondon Anesthetic Plan ASA status: 3 Anesthesia: MAC Other: No prior issues with anesthesia NPO since yesterday Patient has a history of type 2 diabetes on chronic insulin. Last A1c was 8.3. Preop BS 200 Chews tobacco Denies any pulmonary issues Labs reviewed from 06/07/2024 and acceptable for procedure today. Hyponatremia noted, NA 131 Prior EKG showing sinus rhythm Plan for MAC anesthetic with local via surgeon Medications/Allergies Home Medications ?Medication ?Instructions ?Recorded ?Confirmed ?Last Taken ?Type blood sugar diagnostic (FreeStyle #100 ea 11/16/19 06/04/24 Unknown Rx Lite Strips) insulin glargine-yfgn 100 unit/mL 50 unit (0.5 mL) SUBCUT BID #45 mL 04/11/24 06/07/24 06/07/24 Rx (3 mL) subcutaneous pen (Semglee (insulin glargine-yfgn) Pen) cam boot #1 ea 05/14/24 06/04/24 Unknown Rx Toe Filler to right #1 ea 05/24/24 06/04/24 Unknown Rx Allergies Allergy/AdvReac Type Severity Reaction Status Date / Time No Known Allergies Allergy Verified 06/08/24 11:40 [facility] Anesthesia Medical History Reactive airway disease Chronic cough Non-pressure chronic ulcer of other part of right foot with necrosis of muscle Osteomyelitis Abscess of right foot Ulcer of right foot with fat layer exposed Cellulitis Diabetic peripheral neuropathy associated with type 2 diabetes mellitus Diabetic foot ulcers Type 2 diabetes mellitus with foot ulcer Type 2 diabetes mellitus, without long-term current use of insulin Dyslipidemia Splenomegaly PAD (peripheral artery disease) Diabetic foot ulcer Surgical History S/P hernia repair Family History Other Cancer Diabetes Hypertension Social History Smoking and tobacco/nicotine status: never used tobacco/nicotine Alcohol intake: never Substance/Drug Use: never Data Anesthesia Cardiac Studies: No Data to Display
[2024-06-08 11:45] VITALS: BP 139/76; PULSE 76; RESP 18; TEMP 36.6; O2SAT 97
[2024-06-08 11:50] VITALS: BMI 30.8
[2024-06-08] MEDS: sodium chloride 0.9% 1,000 ML 30 ML IV (11:52)
[2024-06-08] MEDS: vancomycin 1,500 MG/300 ML PIGGYBACK 200 MG IV (11:55)
[2024-06-08 12:02] LABS: Glucose Point of Care 200 mg/dL (70-110)
--- NOTE | 2024-06-08 12:47 | P.HPUD_ITS ---
Surgery/Procedure H&P Update DATE OF PROCEDURE: June 08, 2024 DATE H&P PERFORMED: 06/04/24 H&P UPDATE INFORMATION: I have reviewed H&P completed within last 30 days, I have examined patient prior to procedure, No changes to prior documentation and H&P is in [facility] [place] on date indicated PREOP DIAGNOSIS: foot ulcer PLANNED PROCEDURE: Operation Date: 06/08/24 13:00 Proposed Procedures p Incision and debridement right foot(Right) - Zen Russo DPM
--- NOTE | 2024-06-08 13:18 | PM.OP ---
Operative Report Date of procedure: June 08, 2024 Pre-op diagnosis: Osteomyelitis right foot L97.514 Surgical site dehiscence right foot transmetatarsal amputation site. T87.81 Post-op diagnosis: Same Procedure done: Primary delayed closure right foot. [id number] Implants: 2-0 Vicryl, 4-0 nylon Surgeon: Zen Russo DPM [employer] Announcer: Audelia Estimated blood loss: 25 mL See intraoperative documentation IV fluids: See intraoperative documentation Urine output: No urine output Complications: no complications Brief History: Right foot transmetatarsal potation performed another facility he has dehiscence laterally requiring further debridement and delayed closure. I reviewed at length with the patient, the risks, potential complications, benefits, alternatives, expectations, and typical outcomes associated with the surgery. The risks and potential complications were explained in detail, including but not limited to infection, wound dehiscence or soft tissue complications, bleeding and hematoma, chronic edema, neuritis or nerve damage producing numbness or chronic pain, CRPS, failure to relieve pain or worsening pain, thick / painful / unsightly scar, limited motion / stiffness, malposition, delayed union, malunion, or nonunion, fracture, reaction to implants, anesthetic complications, venous thromboembolism, and deformity recurrence. I discussed the notion of no regrets with the patient as it pertains to complications and outcomes. The patient seemed to understand the nature of the proposed care and required convalescence. They asked appropriate questions, answered to their satisfaction. They are aware no guarantees can be made as to a satisfactory outcome and they understand there may be other possible unforeseen complications or outcomes not listed here that will be treated accordingly if they arise. There were no written or implied guarantees given to the patient. They gave informed consent to proceed. Procedure: Under mild sedation patient was brought to the operating room and remained on the gurney in supine position. A timeout was performed. Anesthesia was administered by the anesthesia service. Local anesthesia injected by myself consisting of one-to-one mixture 1% lidocaine and 0.5 to Marcaine plain in a reverse Perez block fashion to the right foot. Well-padded pneumatic tourniquet applied to the right ankle. The right lower extremity was scrubbed, prepped and draped utilizing normal aseptic technique. Attention was directed to the right distal lateral forefoot where at the amputation stump dehiscence to myofascial layer was appreciated predebridement the wound measured 1.8 cm x 1.3 cm x 1 cm and probes to myofascial layer this was sharply and excisionally debrided of devitalized tissue with #15 blade and pickups followed by saline flush. This was then approximated with deep tissue including muscle and fascia being approximated with 2-0 Vicryl, subcutaneous tissue approximated with 3-0 Vicryl and skin closed with 4-0 nylon. Primary delayed closure was successful and no further utilized tissue appreciated. The incision was dressed with Xeroform, sterile gauze, Kerlix followed by application of well-padded multilayer compressive Rice splint. Tourniquet was deflated and a hyperemic response was noted to the stump of the right amputation site. The patient tolerated the procedure and anesthesia well and was transferred to the PACU with vital signs stable and vascular status intact. Following a period of postoperative monitoring he will be discharged home without home care instructions and scheduled follow-up.
[2024-06-08] MEDS: lidocaine 1% 10 ML INJ 15 ML XX (13:30)
[2024-06-08] MEDS: BUPivacaine 0.5% INJ 30 mL INJECTION (13:30)
[2024-06-08] MEDS: VANCOMYCIN ADD-Vantage 1,000 MG VIAL 1000 MG IRRIGATION (13:32)
[2024-06-08 13:50] VITALS: BP 100/77; PULSE 68; RESP 20; TEMP 36.2; O2SAT 92
--- NOTE | 2024-06-08 13:53 | P.BOP_ITS ---
Date of Procedure: 07/08/23 Surgeon: Zen Russo DPM [employer] Operator(s): Rubi Procedure(s) performed: Incision and debridement with delayed closure right foot Findings of the procedure(s): Devitalized tissue right foot Estimated blood loss: 25 mL Specimen(s) removed: None Post-operative diagnosis: Wound right foot
[2024-06-08 13:55] VITALS: BP 119/76; PULSE 68; RESP 18; O2SAT 93
[2024-06-08 14:00] VITALS: BP 107/78; PULSE 67; RESP 17; O2SAT 92
[2024-06-08 14:05] VITALS: BP 124/77; PULSE 67; RESP 17; TEMP 36.2; O2SAT 94
[2024-06-08 14:11] LABS: Glucose Point of Care 168 mg/dL (70-110)
--- NOTE | 2024-06-08 14:12 | ANE.PACU2 ---
Inpatient post-anesthesia follow up: Airway intact: Yes Vital signs: Temperature 97.9 F Pulse Rate 74 Respiratory Rate 17 Blood Pressure 133/86 Pulse Oximetry 94 Oxygen Delivery Me thod Room Air Oxygen Flow Rate Fraction of Inspir ed Oxygen Hydration adequate: Yes Nausea and vomiting: No Pain level: 1 Mental status: Baseline
[2024-06-08 14:15] VITALS: BP 133/86; PULSE 74; RESP 17; TEMP 36.6; O2SAT 94
== END 2024-06-08 14:50 | disposition home or self-care (01) ==
PROVIDERS: PCP Physician Assistant; Visit Provider Podiatrist Foot & Ankle Surgery
PROC: (CPT 13160; principal; 2024-06-08 12:50)
DX: T87.81 Dehiscence of amputation stump (principal); E11.621 Type 2 diabetes mellitus with foot ulcer; L97.514 Non-pressure chronic ulcer of other part of right foot with necrosis of bone; F17.220 Nicotine dependence, chewing tobacco, uncomplicated; E78.5 Hyperlipidemia, unspecified; E11.42 Type 2 diabetes mellitus with diabetic polyneuropathy; I73.9 Peripheral vascular disease, unspecified; J45.909 Unspecified asthma, uncomplicated; K08.499 Partial loss of teeth due to other specified cause, unspecified class; Z79.4 Long term (current) use of insulin; Y83.5 Amputation of limb(s) as the cause of abnormal reaction of the patient, or of later complication, without mention of misadventure at the time of the procedure
CPT/HCPCS: 13160; 36416; 82962; J2250; J2704; J3010; J3370; J3490; J7030

== ENCOUNTER 2024-06-14 14:01 | Oncology outpatient (recurring) (ONCR) | payer BC, SELFPAY ==
[2024-05-31 14:12] VITALS: BP 125/83; PULSE 74; RESP 17; TEMP 36.9; O2SAT 98
[2024-05-31 15:09] LABS: Basophils # 0.1 10^3/uL (0.0-0.1); Eosinophils # 0.2 10^3/uL (0.0-0.8); Eosinophils % 2.1 %; Hematocrit 44.6 % (37-53); Lymphocytes # 2.6 10^3/uL (0.8-4.8); Mean Corpuscular HGB Conc 33.9 g/dL (30-55); Mean Corpuscular Hemoglobin 28.5 pg (27-33); Mean Corpuscular Volume 84.2 fl (82-101); Mean Platelet Volume 11.1 fL (7.4-10.4); Monocytes # 0.5 10^3/uL (0.2-0.9); Monocytes % 7.5 %; Neutrophils # 3.82 10^3/uL (1.8-7.7); Neutrophils % 53.1 %; Nucleated Red Blood Cells % 0 %; Platelet Count 186 10^3/cmm (157-399); Red Cell Distribution Width 13.4 % (12.1-15.1); White Blood Count 7.19 10^3/uL (3.29-11.43)
[2024-05-31 15:12] LABS: Erythrocyte Sedimentation Rate 12 mm/hr (0-10)
[2024-05-31 15:26] LABS: Alanine Aminotransferase 15 U/L (0-41); Alkaline Phosphatase 100 U/L (40-130); Anion Gap 15.4 (5-19); Aspartate Amino Transferase 15 U/L (0-40); Blood Urea Nitrogen 11 mg/dL (6-20); Calcium 8.9 mg/dL (8.5-10.5); Carbon Dioxide 26 mmol/L (22-29); Chloride 99 mmol/L (98-107); Globulin 3.9 g/dL (1.3-4.6); Glomerular Filtration Rate 173.9 mL/min (90-130); Glucose 252 mg/dL (65-115); Osmolality Calculated 290 mOsm/kg (285-295); Potassium 4.4 mmol/L (3.5-5.1); Sodium 136 mmol/L (136-145); Total Bilirubin 0.4 mg/dL (0.15-1.2); Total Protein 7.9 g/dL (6.6-8.7)
[2024-06-07 16:07] LABS: Basophils # 0.1 10^3/uL (0.0-0.1); Basophils % 0.9 %; Eosinophils # 0.1 10^3/uL (0.0-0.8); Eosinophils % 1.9 %; Hematocrit 45.1 % (37-53); Lymphocytes # 2.1 10^3/uL (0.8-4.8); Lymphocytes % 30.9 %; Mean Corpuscular HGB Conc 33.7 g/dL (30-55); Mean Corpuscular Hemoglobin 28.5 pg (27-33); Mean Corpuscular Volume 84.5 fl (82-101); Mean Platelet Volume 10.6 fL (7.4-10.4); Monocytes # 0.8 10^3/uL (0.2-0.9); Monocytes % 11.2 %; Neutrophils # 3.64 10^3/uL (1.8-7.7); Neutrophils % 54.7 %; Nucleated Red Blood Cells % 0 %; Platelet Count 173 10^3/cmm (157-399); Red Blood Count 5.34 10^6/uL (3.85-5.65); Red Cell Distribution Width 13.4 % (12.1-15.1); White Blood Count 6.67 10^3/uL (3.29-11.43)
[2024-06-07 16:26] LABS: Alanine Aminotransferase 15 U/L (0-41); Alkaline Phosphatase 112 U/L (40-130); Aspartate Amino Transferase 19 U/L (0-40); Blood Urea Nitrogen 9 mg/dL (6-20); C Reactive Protein 19.9 mg/L (0.0-4.9); Calcium 9.1 mg/dL (8.5-10.5); Carbon Dioxide 26 mmol/L (22-29); Chloride 93 mmol/L (98-107); Globulin 3.8 g/dL (1.3-4.6); Glomerular Filtration Rate 140.9 mL/min (90-130); Glucose 311 mg/dL (65-115); Osmolality Calculated 282 mOsm/kg (285-295); Sodium 131 mmol/L (136-145); Total Bilirubin 0.3 mg/dL (0.15-1.2); Total Protein 7.8 g/dL (6.6-8.7)
[2024-06-07 16:27] LABS: Erythrocyte Sedimentation Rate 16 mm/hr (0-10)
--- NOTE | 2024-06-14 14:34 | PC.NURSE ---
Removed pts PICC line from right upper arm per protocol. 44cm catheter removed. in tact. No redness or irritation noted. Pt tolerated well.
[2024-06-14 14:39] LABS: Basophils # 0.1 10^3/uL (0.0-0.1); Basophils % 0.7 %; Eosinophils # 0.2 10^3/uL (0.0-0.8); Eosinophils % 2.5 %; Hematocrit 42.7 % (37-53); Lymphocytes # 2.4 10^3/uL (0.8-4.8); Lymphocytes % 32.5 %; Mean Corpuscular HGB Conc 34.4 g/dL (30-55); Mean Corpuscular Hemoglobin 28.7 pg (27-33); Mean Corpuscular Volume 83.4 fl (82-101); Mean Platelet Volume 10.5 fL (7.4-10.4); Monocytes # 0.5 10^3/uL (0.2-0.9); Monocytes % 6.6 %; Neutrophils # 4.16 10^3/uL (1.8-7.7); Neutrophils % 57.3 %; Nucleated Red Blood Cells % 0 %; Platelet Count 195 10^3/cmm (157-399); Red Blood Count 5.12 10^6/uL (3.85-5.65); White Blood Count 7.26 10^3/uL (3.29-11.43)
[2024-06-14 14:47] LABS: Erythrocyte Sedimentation Rate 13 mm/hr (0-10)
[2024-06-14 14:59] LABS: Alanine Aminotransferase 17 U/L (0-41); Alkaline Phosphatase 111 U/L (40-130); Anion Gap 12.6 (5-19); Aspartate Amino Transferase 13 U/L (0-40); Blood Urea Nitrogen 12 mg/dL (6-20); Calcium 9.3 mg/dL (8.5-10.5); Carbon Dioxide 28 mmol/L (22-29); Chloride 100 mmol/L (98-107); Globulin 3.4 g/dL (1.3-4.6); Glomerular Filtration Rate 140.9 mL/min (90-130); Glucose 292 mg/dL (65-115); Osmolality Calculated 293 mOsm/kg (285-295); Potassium 4.6 mmol/L (3.5-5.1); Sodium 136 mmol/L (136-145); Total Bilirubin 0.4 mg/dL (0.15-1.2); Total Protein 7.4 g/dL (6.6-8.7)
== END 2024-06-22 23:59 | disposition home or self-care (01) ==
PROVIDERS: PCP Physician Assistant; Visit Provider Internal Medicine Medical Oncology
DX: Z45.2 Encounter for adjustment and management of vascular access device (principal); L97.513 Non-pressure chronic ulcer of other part of right foot with necrosis of muscle; L97.522 Non-pressure chronic ulcer of other part of left foot with fat layer exposed
CPT/HCPCS: 36592; 80053; 85025; 85651; 86140

== ENCOUNTER 2024-08-30 13:55 | Outpatient (CLI) | payer BC, SELFPAY ==
[2024-08-30 14:57] LABS: Basophils # 0.1 10^3/uL (0.0-0.1); Basophils % 1.1 %; Eosinophils # 0.1 10^3/uL (0.0-0.8); Eosinophils % 1.7 %; Hematocrit 47.9 % (37-53); Lymphocytes # 2.7 10^3/uL (0.8-4.8); Lymphocytes % 37.3 %; Mean Corpuscular HGB Conc 35.5 g/dL (30-55); Mean Corpuscular Hemoglobin 31.3 pg (27-33); Mean Corpuscular Volume 88.2 fl (82-101); Mean Platelet Volume 10.9 fL (7.4-10.4); Monocytes # 0.5 10^3/uL (0.2-0.9); Monocytes % 7.2 %; Neutrophils # 3.79 10^3/uL (1.8-7.7); Neutrophils % 52.3 %; Nucleated Red Blood Cells % 0 %; Platelet Count 171 10^3/cmm (157-399); Red Blood Count 5.43 10^6/uL (3.85-5.65); White Blood Count 7.24 10^3/uL (3.29-11.43)
[2024-08-30 14:59] LABS: Erythrocyte Sedimentation Rate 7 mm/hr (0-10)
[2024-08-30 15:14] LABS: Estmated Average Glucose 217; Hemoglobin A1C 9.2 % (4.0-6.0)
[2024-08-30 16:36] LABS: Creatinine Urine, Random 161 mg/dL (39-259); Microalbum Creatinine Ratio Ur 12 mg/dL (0-20); Microalbumin Random Urine 2 ug/dL (0-20)
[2024-08-30 16:41] LABS: Alanine Aminotransferase 21 U/L (0-41); Albumin Level 4.5 g/dL (3.5-5.2); Alkaline Phosphatase 111 U/L (40-130); Aspartate Amino Transferase 18 U/L (0-40); Blood Urea Nitrogen 13 mg/dL (6-20); C Reactive Protein 3.1 mg/L (0.0-4.9); Calcium 9.5 mg/dL (8.5-10.5); Carbon Dioxide 23 mmol/L (22-29); Chloride 99 mmol/L (98-107); Chol HDL Ratio 3.94 mg/dL (1.0-5.00); Cholesterol 130 mg/dL (0-200); Globulin 3.6 g/dL (1.3-4.6); Glomerular Filtration Rate 140.9 mL/min (90-130); Glucose 282 mg/dL (65-115); HDL Cholesterol 33 mg/dL (60-100); LDL Cholesterol Calculated 31 mg/dL (50-129); LDL HDL Ratio 0.94 RATIO (0.00-3.22); Osmolality Calculated 294 mOsm/kg (285-295); Sodium 137 mmol/L (136-145); Total Bilirubin 0.7 mg/dL (0.15-1.2); Total Protein 8.1 g/dL (6.6-8.7); Triglycerides 329 mg/dL (0-150)
== END 2024-08-30 13:56 | disposition home or self-care (01) ==
PROVIDERS: Podiatrist Foot & Ankle Surgery; PCP Physician Assistant; Visit Provider Internal Medicine
DX: Z89.431 Acquired absence of right foot (principal); E11.69 Type 2 diabetes mellitus with other specified complication; E78.5 Hyperlipidemia, unspecified
CPT/HCPCS: 36415; 80053; 80061; 82044; 83036; 85025; 85651; 86140

== ENCOUNTER 2024-12-13 16:36 | Outpatient (CLI) | payer BC, SELFPAY ==
[2024-12-13 17:30] LABS: Estmated Average Glucose 209; Hemoglobin A1C 8.9 % (4.0-6.0)
[2024-12-13 17:51] LABS: Creatinine Urine, Random 188 mg/dL (39-259); Microalbum Creatinine Ratio Ur 11 mg/dL (0-20)
[2024-12-13 17:52] LABS: Alanine Aminotransferase 18 U/L (0-41); Albumin Level 4.6 g/dL (3.5-5.2); Alkaline Phosphatase 108 U/L (40-130); Anion Gap 14.1 (5-19); Aspartate Amino Transferase 17 U/L (0-40); Blood Urea Nitrogen 13 mg/dL (6-20); Calcium 9.7 mg/dL (8.5-10.5); Carbon Dioxide 29 mmol/L (22-29); Chloride 98 mmol/L (98-107); Cholesterol 152 mg/dL (0-200); Globulin 3.5 g/dL (1.3-4.6); Glucose 227 mg/dL (65-115); HDL Cholesterol 32 mg/dL (60-100); Osmolality Calculated 291 mOsm/kg (285-295); Potassium 4.1 mmol/L (3.5-5.1); Sodium 137 mmol/L (136-145); Total Protein 8.1 g/dL (6.6-8.7); Triglycerides 288 mg/dL (0-150)
== END 2024-12-13 16:37 | disposition home or self-care (01) ==
PROVIDERS: PCP Physician Assistant; Visit Provider Internal Medicine
DX: E78.5 Hyperlipidemia, unspecified (principal); E11.69 Type 2 diabetes mellitus with other specified complication
CPT/HCPCS: 36415; 80053; 80061; 82044; 83036